=== PATIENT | female | born 2005 | race Caucasian/White ===

== ENCOUNTER 2024-11-27 20:40 | Emergency (ER) | payer MEDICAID, SELFPAY ==
[2024-11-27 20:42] VITALS: BP 109/68; PULSE 77; RESP 18; TEMP 36.3; O2SAT 98
[2024-11-27 21:08] LABS: Mucous, Urine 0 SEEN /hpf (<or=2+)
[2024-11-27 21:49] LABS: Hematocrit 35.2 % (37-47); Hemoglobin 11.3 g/dL (12.0-15.0); Immature Granulocytes Count 0.020 X10^3/uL (0.0-0.0); Mean Corp Hgb Conc 32.1 g/dL (32-36); Mean Corpuscular Volume 86.7 fL (81-99); Mean Platelet Vol. 10.0 fl (6.2-12.0); NRBC Flagged by Analyzer 0 % (0-5); Platelet Count 230 K/mm3 (150-450); RBC Distribution Width CV 14.1 % (11.6-14.6); RBC Distribution Width SD 45.1 fl (35.1-43.9); Red Blood Count 4.06 M/mm3 (4.2-5.4); White Blood Count 8.9 K/mm3 (4.4-11.0)
[2024-11-27 21:59] LABS: Color, Urine Yellow (Yellow); Glucose, Dipstick Normal (Normal); Ketone-Dipstick Negative (Negative); Leukocyte Esterase-Dipstick Negative /ul (Negative); Nitrite-Dipstick Positive (Negative); Occult Blood-Urine Negative /ul (Negative); Protein-Dipstick 30 mg/dl (Negative); Specific Gravity, Urine 1.015 (1.002-1.030); Urine Bilirubin Dipstick Negative (Negative)
[2024-11-27 22:04] LABS: Internal QC Validated? YES +Cl - CLEAR BKGD; Pregnancy, Serum, hCG Quali. NEGATIVE Negative; Record Kit Lot#, Serum Preg. 964736
[2024-11-27 22:08] LABS: AST(SGOT) 19 U/L (<=31); Alanine Aminotransfer ALT/SGPT 12 U/L (<=34); Albumin, Serum 4.7 g/dL (3.5-5.0); Alkaline Phosphatase 60 U/L (35-104); Anion Gap 13 (5-15); BUN 16 mg/dL (4-19); BUN/Creat Ratio 12.8 RATIO (10-20); Calcium,Total 9.4 mg/dL (7.6-11.0); Carbon Dioxide 23.9 mmol/L (21.0-32.0); Chloride 103 mmol/L (98-108); Estimated Creatinine Clearance 54.19 ml/min (50-250); Globulin 2.2 g/dL (2.2-4.2); Glucose 110 mg/dL (70-99); Lipase 49 U/L (13-75); Potassium 3.5 mmol/L (3.3-5.1)
[2024-11-27 22:18] LABS: Red Blood Cells-Urine 0-5 SEEN /hpf (0-5); Squamous Epithelial Cells - UA 5-10 SEEN /hpf (5-10)
--- OUTSIDE RECORDS SUMMARY | 2024-11-27 22:18 | XMS RPT_ITS | CCD ---
Author Organization [facility] Care Team Providers Care Medical Management Specialist Name Role Phone SAMMY KENNEL HAND-RIGGING UP WORKER, VIKTORIA S Primary Care Physicia n KEEGAN JEWELL MD Attending Unavailable SAMMY KENNEL HAND-RIGGING UP WORKER, VIKTORIA S Primary Care Unava ilable BEITLERVIKTORIA Attending Unavailable SAMMY KENNEL HAND-RIGGING UP WORKER, VIKTORIA S Primary Care Unava ilable BEITLER VIKTORIA Attending Unavailable SAMMY KENNEL HAND-RIGGING UP WORKER, VIKTORIA S Primary Care Unava ilable EDDIE SANCHEZ MD Attending Unavailable SAMMY KENNEL HAND-RIGGING UP WORKER, VIKTORIA S Primary Care Unava ilable SAMMY KENNEL HAND-RIGGING UP WORKER, VIKTORIA S Attending Unava ilable SAMMY KENNEL HAND-RIGGING UP WORKER, VIKTORIA S Primary Care Unava ilable BEITLER VIKTORIA Attending Unavailable SAMMY KENNEL HAND-RIGGING UP WORKER, VIKTORIA S Primary Care Unava ilable BEITLER, VIKTORIA Attending Unavailable SAMMY KENNEL HAND-RIGGING UP WORKER, VIKTORIA S Primary Care Unava ilable BEITLER VIKTORIA Attending Unavailable SAMMY KENNEL HAND-RIGGING UP WORKER, VIKTORIA S Primary Care Unava ilable BEITLERGEOVANNYVIKTORIA Attending Unavailable SAMMY KENNEL HAND-RIGGING UP WORKER, VIKTORIA S Primary Care Unava ilable BEITLER VIKTORIA Attending Unavailable SAMMY KENNEL HAND-RIGGING UP WORKER, VIKTORIA S Primary Care Unava ilable KEEGAN JEWELL MD Attending Unavailable SAMMY KENNEL HAND-RIGGING UP WORKER, VIKTORIA S Primary Care Unava ilable BEITLERVIKTORIA Attending Unavailable SAMMY KENNEL HAND-RIGGING UP WORKER, VIKTORIA S Primary Care Unava ilable BEITLERVIKTORIA Attending Unavailable SAMMY KENNEL HAND-RIGGING UP WORKER, VIKTORIA S Primary Care Unava ilable KANDY SCHMITZ DO Attending Unavailable [facility], VIKTORIA S Primary Care Unava ilable TRI ROBLERO, RACHAEL Attending Unavailable [facility], VIKTORIA S Primary Care Unava alvarado BARTLETT MD, RACHAEL Admitting Unavailable VIKTORIA MARINELLI Attending Unavailable [facility], VIKTORIA S Primary Care Unava ilpaul BARTLETT MD, RACHAEL Admitting Unavailable TRI ROBLERO, RACHAEL Attending Unavailable [facility], [facility] Primary Care Unava ilable Jordin Miller Attending Provider [phone] Jordin Miller Attending Unavailable Jordin Miller Attending Unavailable TERE SNOW MD Attending Unavailable [facility], [facility] Unava ilable Medications Current Medications Medication Drug Class(es) Dates Sig (Normalized) Sig (Original) acetaminophen 500 mg oral tablet (2 sources) Start: 08-23-2023 End: 09-20-2023 Tylenol Extra Strength 500 mg oral tablet Dose : 500 mg = 1 tab(s), Oral, q4h, X 14 day(s), # 30 tab(s), 1 Refill(s), 09/20/23 4:21:00 PM EDT, [facility]: [id number], 157, cm, 08/23/23 7:51:00 EDT, Height, kg, 08/23/23 7:51:00 EDT, Dosing Weight Start Date: 08/23/23 Stop Date: 09/20/23 Status: Ordered Start: 03-13-2020 Tylenol Oral, 0 Refill(s) Start Date: 03/13/20 Status: Ordered albuterol MDI (90 mcg/inh) CFC free inhalation aerosol (20 sources) Start: 07-07-2021 take 2 puff(s) by inhalation four times daily as needed for wheezing albuterol MDI (90 mcg/inh) CFC free inhalation aerosol 2 puff(s), Inhalation, QID, PRN as needed for wheezing, # 1 EA, 0 Refill(s), [facility]: [facility] Asthma, 157, cm, 07/07/21 16:08:00 EDT, Height, kg, 07/07/21 16:08:00 EDT, Dosing Weight Start Date: 07/07/21 Status: Ordered Quantity: 1.0 Unit: EA Repeat number: 1 Indications: Unspecified asthma, uncomplicated; Start: 07-07-2021 take 2 puff(s) by in halation four times daily as needed for wheezing albuterol MDI (90 mcg/inh) CFC free inhalation aerosol 2 puff(s), Inhalation, QID, PRN as needed for wheezing, # 1 EA, 0 Refill(s), Pharmacy: [facility] Asthma, 157, cm, 07/07/21 16:08:00 EDT, Height, kg, 07/07/21 16:08:00 EDT, Dosing Weight Start Date: 07/07/21 Status: Ordered Start: 01-06-2020 take 2 puff(s) by in halation four times daily as needed for wheezing albuterol MDI (90 mcg/inh) CFC free inhalation aerosol 2 puff(s), Inhalation, QID, PRN as needed for wheezing, # 1 EA, 3 Refill(s), Pharmacy: [facility] 156, cm, 01/06/20 14:38:00 EST, Height, kg, 01/06/20 14:38:00 EST, Dosing Weight Start Date: 01/06/20 Status: Ordered Alive Gummies oral tablet, chewable (14 sources) Start: 01-04-2023 take 1 tablet by mouth once daily Alive Gummies oral tablet, chewable Dose = 2 tab(s), Chewed, qDay, # 90 EA, 7 Refill(s), [facility]: [facility] #[id number], 157.2, cm, 01/03/23 14:45:00 EDT, Height, kg, 01/03/23 14:45:00 EDT, Dosing Weight Start Date: 01/04/23 Status: Ordered aspirin 81 mg delayed release oral tablet (11 sources) Platelet Aggregation Inhibitor, Nonsteroidal Anti-inflammatory Drug Start: 01-31-2023 aspirin 81 mg oral delayed release tablet Dose : 81 mg = 1 tab(s), Oral, Daily, # 30 tab(s), 7 Refill(s), Pharmacy: [facility] #[id number], 157.2, cm, 01/31/23 9:30:00 EST, Height, kg, 01/03/23 14:45:00 EDT, Dosing Weight Start Date: 01/31/23 Status: Ordered benzocaine 200 mg/ml topical spray (1 source) Standardized Chemical Allergen Start: 08-23-2023 End: 09-06-2023 apply 1 dose topically four times daily Americaine 20% topical spray Dose = 1 octavio, Topical, QID, X 14 day(s), # 1 EA, 0 Refill(s), Pharmacy: [facility] #[id number], 157, cm, 08/23/23 7:51:00 EDT, Height, kg, 08/23/23 7:51:00 EDT, Dosing Weight Start Date: 08/23/23 Stop Date: 09/06/23 Status: Ordered cephalexin 500 mg oral tablet (3 sources) Cephalosporin Antibacterial Start: 07-21-2024 End: 07-31-2024 cephalexin 500 mg oral tablet Dose : 500 mg = 1 tab(s), Oral, QID, X 10 day(s), # 40 tab(s), 0 Refill(s), 07/31/24 3:30:00 PM EDT, 48 Start Date: 07/21/24 Stop Date: 07/31/24 Status: Ordered Quantity: 40.0 Unit: tab(s) Repeat number: 1 Start: 03-12-2023 End: 03-19-2023 cephalexin 500 mg oral capsu le Dose : 500 mg = 1 cap(s), Oral, q12h, X 7 day(s), # 14 cap(s), 0 Refill(s), 03/19/23 2:42:00 PM EST, 45 Start Date: 03/12/23 Stop Date: 03/19/23 Status: Ordered Start: 02-16-2023 End: 02-23-2023 cephalexin 500 mg oral capsu le Dose : 500 mg = 1 cap(s), Oral, q12h, X 7 day(s), # 14 cap(s), 0 Refill(s), 02/23/23 10:17:00 PM EST, 45.4 Start Date: 02/16/23 Stop Date: 02/23/23 Status: Ordered cetirizine hydrochloride 10 mg oral tablet (1 source) Histamine-1 Receptor Antagonist Start: 07-07-2021 cetirizine 10 mg oral tablet Dose : 10 mg = 1 tab(s), Oral, qDay, # 30 tab(s), 0 Refill(s), [facility]: [facility] Allergic rhinitis, seasonal, 157, cm, 07/07/21 16:08:00 EDT, Height Start Date: 07/07/21 Status: Ordered diphenhydrAMINE hydrochloride 25 mg oral tablet (6 sources) Histamine-1 Receptor Antagonist Start: 01-04-2023 Unisom 25mg oral tablet Dose : 25 mg = 1 tab(s), Oral, qHS, PRN as needed for insomnia, # 30 tab(s), 5 Refill(s), Pharmacy: [facility] #[id number], 157.2, cm, 01/03/23 14:45:00 EDT, Height, kg, 01/03/23 14:45:00 EDT, Dosing Weight Start Date: 01/04/23 Status: Ordered docusate sodium 100 mg oral capsule (7 sources) Start: 08-23-2023 Colace 100 mg oral capsule Dose : 100 mg = 1 cap(s), Oral, BID, PRN Constipation, 0 Refill(s) Start Date: 08/23/23 Status: Ordered Start: 05-15-2023 Colace 100 mg oral capsule Dose : 100 mg = 1 cap(s), Oral, BID, PRN as needed for constipation, # 100 cap(s), 4 Refill(s), Pharmacy: [facility] #[id number], 157.5, cm, 04/10/23 10:06:00 EST, Height, kg, 03/12/23 12:55:00 EST, Dosing Weight Start Date: 05/15/23 Status: Ordered ergocalciferol 1.25 mg oral capsule (1 source) Provitamin D2 Compound Start: 04-17-2022 End: 07-16-2022 ergocalciferol 50,000 intl units (1.25 mg) oral capsule Dose : 50,000 International_Unit = 1 cap(s), Oral, qWeek, # 13 cap(s), 0 Refill(s), Pharmacy: [facility] #[id number], 159, cm, 04/17/22 13:13:00 EST, Height Start Date: 04/17/22 Stop Date: 07/16/22 Status: Ordered ferrous sulfate 324 mg delayed release oral tablet (7 sources) Start: 05-17-2023 ferrous sulfate 324 mg (65 mg elemental iron) oral delayed release tablet Dose : 324 mg = 1 tab(s), Oral, qDay, please dispense what is covered by her insurance., # 30 tab(s), 4 Refill(s), Pharmacy: [facility] #[id number], Anemia in , 157.5, cm, 05/15/23 11:26:00 EDT, Height, kg, 03/12/23 12:55:00 EST, Dosing Weight Start Date: 05/17/23 Status: Ordered fluconazole 150 mg oral tablet (1 source) Azole Antifungal Start: 10-03-2021 End: 10-05-2021 Diflucan 150 mg oral tablet See Instructions, 1 tab(s) Oral qDay 1 dose(s), repeat in 48 hrs if continued symptoms, # 2 tab(s), 0 Refill(s), 10/05/21 1:47:00 EDT, Vaginal discharge, 47.2 Start Date: 10/03/21 Stop Date: 10/05/21 Status: Ordered FLUoxetine 10 mg oral capsule (1 source) Serotonin Reuptake Inhibitor Start: 12-25-2023 End: 12-19-2024 FLUoxetine 10 mg oral capsule Dose : 10 mg = 1 cap(s), Oral, qDay, # 30 cap(s), 11 Refill(s), Pharmacy: [facility]/pharmacy #[id number], 157, cm, 12/25/23 13:53:00 EDT, Height, kg, 12/25/23 13:53:00 EDT, Dosing Weight Start Date: 12/25/23 Stop Date: 12/19/24 Status: Ordered Quantity: 30.0 Unit: cap(s) Repeat number: 12 ibuprofen 800 mg oral tablet (1 source) Nonsteroidal Anti-inflammatory Drug Start: 08-23-2023 End: 09-06-2023 ibuprofen 800 mg oral tablet Dose : 800 mg = 1 tab(s), Oral, q8h, X 14 day(s), # 42 tab(s), 0 Refill(s), 09/06/23 4:21:00 PM EDT, [facility]: [facility] #[id number], 157, cm, 08/23/23 7:51:00 EDT, Height, kg, 08/23/23 7:51:00 EDT, Dosing Weight Start Date: 08/23/23 Stop Date: 09/06/23 Status: Ordered meloxicam 7.5 mg oral tablet (1 source) Nonsteroidal Anti-inflammatory Drug Start: 07-15-2021 meloxicam 7.5 mg oral tablet Dose : 7.5 mg = 1 tab(s), Oral, qDay, # 30 tab(s), 0 Refill(s), [facility]: [facility] [facility], 157, cm, 07/07/21 16:08:00 EDT, Height Start Date: 07/15/21 Status: Ordered naproxen 500 mg delayed release oral tablet (1 source) Nonsteroidal Anti-inflammatory Drug Start: 04-17-2022 End: 10-14-2022 naproxen 500 mg oral delayed release tablet Dose : 500 mg = 1 tab(s), Oral, BID, X 30 day(s), # 60 tab(s), 5 Refill(s), 10/14/22 13:40:00 EDT, [facility]: [facility] #[id number], 159, cm, 04/17/22 13:13:00 EST, Height Start Date: 04/17/22 Stop Date: 10/14/22 Status: Ordered ondansetron 4 mg oral tablet (1 source) Serotonin-3 Receptor Antagonist Start: 04-17-2022 End: 07-16-2022 Zofran 4 mg oral tablet Dose : 4 mg = 1 tab(s), Oral, q6h, PRN Nausea/Vomiting, X 30 day(s), # 30 tab(s), 2 Refill(s), 07/16/22 13:41:00 EDT, [facility]: [facility] #[id number], 159, cm, 04/17/22 13:13:00 EST, Height Start Date: 04/17/22 Stop Date: 07/16/22 Status: Ordered AD oral tablet (6 sources) Start: 12-28-2022 take 1 tablet by mouth once daily AD oral tablet Dose = 1 tab(s), Oral, Daily, # 30 tab(s), 1 Refill(s), Pharmacy: [facility] #[id number], 159, cm, 12/28/22 13:29:00 EDT, Height, kg, 12/28/22 13:29:00 EDT, Dosing Weight Start Date: 12/28/22 Status: Ordered pyridoxine hydrochloride 25 mg oral tablet (6 sources) Start: 01-04-2023 pyridoxine 25 mg oral tablet Dose : 25 mg = 1 tab(s), Oral, q6hr, # 100 tab(s), 5 Refill(s), [facility]acy: [facility] #[id number], 157.2, cm, 01/03/23 14:45:00 EDT, Height, kg, 01/03/23 14:45:00 EDT, Dosing Weight Start Date: 01/04/23 Status: Ordered Sprintec 0.25 mg-35 mcg oral tablet (1 source) Start: 01-11-2021 take 1 tablet by mouth once daily Sprintec 0.25 mg-35 mcg oral tablet Dose = 1 tab(s), Oral, qDay, # 84 tab(s), 3 Refill(s), [facility]: [facility] 158.5, cm, 01/06/21 13:59:00 EDT, Height, kg, 01/06/21 13:59:00 EDT, Dosing Weight Start Date: 01/11/21 Status: Ordered {3 (168 HR ethinyl estradiol 0.13157 MG/HR / levonorgestrel 0.005 MG/HR Transdermal System [Twirla]) } Pack [Twirla 3 Count Weekly Patch] (1 source) Start: 07-19-2022 apply 1 dose topically every week Twirla 120 mcg-30 mcg transdermal film Dose = 1 film, Topical, qWeek, # 4 film, 3 Refill(s), Pharmacy: [facility] #[id number], 155, cm, 07/19/22 9:05:00 EDT, Height Start Date: 07/19/22 Status: Ordered Completed/Discontinued Medications Medication Drug Class(es) Dates Sig (Normalized) Sig (Original) omeprazole 20 mg delayed release oral capsule (3 sources) Proton Pump Inhibitor Start: 12-01-2021 End: 12-15-2021 omeprazole 20 mg oral delayed release capsule Dose : 20 mg = 1 cap(s), Oral, qDay, # 14 cap(s), 0 Refill(s), [facility]acy: [facility] #[id number], 158, cm, 12/01/21 13:12:00 EDT, Height Start Date: 12/01/21 Stop Date: 12/15/21 Status: Ordered Problems Active Problems Problem Classification Problem Date Documented Date Episodic/Chronic Abdominal pain (2 sources) Pelvic and perineal pain; Translations: [Pelvic and perineal pain] Onset: 01-31-2021 Episodic Administrative/socia l admission (5 sources) Patient encounter status; Translations: [Encounter for pre-employment examination] Onset: 10-10-2024 10-10-2024 Episodic Anxiety disorders (20 sources) Mixed anxiety and depressive disorder; Translations: [Anxiety] Onset: 08-23-2023 01-06-2020 Chronic Asthma (2 sources) Asthma; Translations: [Unspecified asthma, uncomplicated] Onset: 08-23-2023 Chronic Deficiency and other anemia (1 source) Anemia 10-24-2023 Episodic Esophageal disorders (18 sources) Gastroesophageal reflux disease 12-01-2021 Chronic Immunizations and screening for infectious disease (1 source) Screening status; Translations: [Encounter for screening for infections with a predominantly sexual mode of transmission] Onset: 08-23-2023 Episodic Malaise and fatigue (20 sources) Asthenia; Translations: [Fatigue] 04-17-2022 Episodic Menstrual disorders (18 sources) Intermenstrual bleeding - irregular; Translations: [Secondary amenorrhea] Onset: 01-03-2023 04-17-2022 Chronic Nausea and vomiting (18 sources) Nausea 12-01-2021 Episodic Nutritional deficiencies (17 sources) Vitamin D deficiency; Translations: [Vitamin D deficiency, unspecified] Onset: 04-17-2022 Chronic OB-related trauma to perineum and vulva (1 source) Second degree perineal tear during delivery with problem; Translations: [Second degree perineal laceration during delivery] Onset: 08-23-2023 Episodic Other connective tissue disease (15 sources) Pain in thumb 08-24-2022 Episodic Other female genital disorders (1 source) Noninflammatory disorder of the vagina; Translations: [Other specified noninflammatory disorders of vagina] Onset: 10-03-2021 Episodic Other injuries and conditions due to external causes (1 source) Injury of head; Translations: [Unspecified injury of head, initial encounter] Onset: 01-12-2022 Episodic Other injuries and conditions due to external causes (1 source) Injury of upper extremity; Translations: [Unspecified injury of left wrist, hand and finger(s), initial encounter] Onset: 10-13-2022 Episodic Other and delivery including normal (15 sources) ; Translations: [Delivery normal] Onset: 10-22-2022 01-17-2023 Episodic Otitis media and related conditions (1 source) Dysfunction of eustachian tube 12-25-2023 Episodic Residual codes; unclassified (1 source) Gestation period, 39 weeks; Translations: [39 weeks gestation of ] Onset: 08-23-2023 Episodic Spondylosis; intervertebral disc disorders; other back problems (20 sources) Pain in the coccyx 01-27-2020 Episodic Unclassified (20 sources) Patient encounter status 01-06-2021 Past or Other Problems Problem Classification Problem Date Documented Date Episodic/Chronic Genitourinary symptoms and ill-defined conditions (2 sources) Genitourinary tract problem; Translations: [Unspecified symptoms and signs involving the genitourinary system] Onset: 07-21-2024 Episodic Urinary tract infections (2 sources) Urinary tract infectious disease; Translations: [Urinary tract infection, site not specified] Onset: 03-12-2023 Episodic Results Test Name Value Interpretation Reference Range Facility Office Visit Reporton 2024 Office Visit Report [facility] [address] [place] [address] OFFICE VISIT Date of Service: 10/10/24 MR#: [id number] Acct: [id number] Patient: MARCO BOSTON Rep #: [id number] : 2005 Provider: KENNETH Don Age/Sex: 18/F [place] [facility] [place] [place]: Signed Intake Intake Visit 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 Office Procedures [facility] Billing Sheet Testing Breath Alcohol Test Pre-Employment: Yes Pre-Employment Drug Screen: Yes Pre-Employment PE: Yes 10/16/24 0749 Date Jordin Saleem Signature: Date (if applicable) CC: Normal [facility] Visit Reporton 0 10-10-2024 Urgent Care Visit Report [facility] [address], [address] [place] [address] OFFICE VISIT Date of Service: 10/10/24 MR#: [id number] Acct: [id number] Name: MARCO BOSTON Rep #: [id number] : 2005 Provider: KENNETH Don Age/Sex: 18/F [place] [facility] [place] Status: Signed Intake Intake Visit 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 Please see corresponding scanned documents with today's date. Office Procedures Physical Exam Coding PE Coding Pre-employment PE: Yes Coding Level of Care Code Attention Cory Diagnoses Encounter for pre-employment health screening examination Z02.1 Assessment and Plan Assessment and Plan (1) Encounter for pre-employment health screening examination: Status: Acute 10/10/24 1520 Date Jordin Saleem Signature: Date (if applicable) CC: Normal [facility] LABORATORYOrdered By: Nicolas Norwood on 07-21-2024 Appearance (U) Cloudy *ABN* (07/21/24 2:20 PM) Invalid Interpretation Code Clear AO Auto Urine SS Bacteria LM.HPF (Urine sed) [#/Area] 4 /[HPF] Invalid Interpretation Code Negative AO Auto Urine SS Bilirubin Ql (U) Negative (07/21/24 2:20 PM) Normal Negative AO Auto Urine SS Color (U) Yellow (07/21/24 2:20 PM) Normal AO Auto Urine SS Glucose Test strip (U) [Mass/Vol] Negative Normal Negative AO Auto Urine SS Hemoglobin Auto test strip (U) [Mass/Vol] Small *ABN* (07/21/24 2:20 PM) Invalid Interpretation Code Negative AO Auto Urine SS Ketones Ql (U) Negative Normal Negative AO Auto Urine SS UA Coarse Granular Casts 0-2 /LPF Invalid Interpretation Code AO Auto Urine SS UA Leuk Est Trace (07/21/24 2:20 PM) Normal Negative AO Auto Urine SS UA Nitrite Positive *ABN* (07/21/24 2:20 PM) Invalid Interpretation Code Negative AO Auto Urine SS UA pH 6.0 (07/21/24 2:20 PM) Normal 5.0 - 8.0 AO Auto Urine SS UA Protein Negative Normal Negative AO Auto Urine SS UA RBC 10-20 /HPF Invalid Interpretation Code 0-2 AO Auto Urine SS UA Spec Grav >=1.030 *ABN* (07/21/24 2:20 PM) Invalid Interpretation Code 1.015-1.025 AO Auto Urine SS UA Specimen Type Clean Catch (07/21/24 2:20 PM) Normal AO Auto Urine SS UA Squam Epithelial 10-20 /HPF Normal 0-20 AO Au to Urine SS UA Urobilinogen 0.2 E.U./dL Normal 0.2-1.0 AO Auto Urine SS WBC LM.HPF (Urine sed) [#/Area] 10-20 /HPF Invalid Interpretation Code 0-5 AO Auto Urine SS No Panel Informationon 07-21 Culture Urine Specimen received in lab. [facility] Work Phone: UAon 07-21-2024 Color (U) Yellow Normal [facility] Comment on above: Performed By: #### U AMI, UA #### [address] [place], [place] [address] Glucose (U) [Mass/Vol] Negative Normal Negative [facility] Comment on above: Performed By: #### U AMIC, UA #### [place] [address] Ketones Ql (U) Negative Normal Negative [facility] Comment on above: Performed By: #### U AMIC, UA #### [place] [address] UA Appear Cloudy Abnormal Clear [facility] Comment on above: Performed By: #### U AMIC, UA #### [address] [address] UA Blood Small Abnormal Negative [facility] Comment on above: Performed By: #### U AMIC, UA #### [place] [address] UA Leuk Est Trace Normal Negative [facility] Comment on above: Performed By: #### U AMIC, UA #### [place] [address] UA Nitrite Positive Abnormal Negative [facility] Comment on above: Performed By: #### U AMIC, UA #### [place] [address] UA pH 6.0 Normal 5.0 - 8.0 [facility] Comment on above: Performed By: #### U AMIC, UA #### [place] [address] UA Protein Negative Normal Negative [facility] Comment on above: Performed By: #### U AMIC, UA #### [place] [address] UA Spec Grav >=1.030 Abnormal 1.015-1.025 [facility] Comment on above: Performed By: #### U AMIC, UA #### [place] [address] UA Specimen Type Clean Catch Normal [facility] Comment on above: Performed By: #### U AMIC, UA #### [place] [address] UA Urobilinogen 0.2 E.U./dL Normal 0.2-1.0 [facility] Comment on above: Performed By: #### U AMIC, UA #### [place] [address] Urobilinogen (U) [Mass/Vol] Negative Normal Negative [facility] Comment on above: Performed By: #### U AMIC, UA #### [place] [address] UAMICon 07-21-2024 UA Bacteria 4+ /hpf Abnormal Negative [facility] Comment on above: Performed By: #### U AMIC, UA #### [place] [address] UA Coarse Granular Casts 0-2 Abnormal [facility] Comment on above: Performed By: #### U AMIC, UA #### [place] [address] UA RBC 10-20 Abnormal 0-2 [facility] Comment on above: Performed By: #### U AMIC, UA #### [place] [address] UA Squam Epithelial 10-20 Normal 0-20 [facility] Comment on above: Performed By: #### U AMIC, UA #### [place] [address] UA WBC 10-20 Abnormal 0-5 [facility] Comment on above: Performed By: #### U AMIC, UA #### [place] [address] .Auto Diffon 10-24-2023 Basophil, Absolute 0.1 10 3/mcL Normal 0.0-0.2 [facility] ([place]) Comment on above: Performed By: #### U A, PREGU, UAMICAO #### [address] [address] Basophils/100 WBC (Bld) 1.0 % Normal 0.0-2.5 [facility] ([place]) Comment on above: Performed By: #### U A, PREGU, UAMICAO #### [address] [address] Eosinophil, Absolute 0.1 10 3/mcL Normal 0.0-0.4 [facility] ([place]) Comment on above: Performed By: #### U A, PREGU, UAMICAO #### [address] [address] Eosinophils/100 WBC (Bld) 1.1 % Normal 0.0-7.0 [facility] ([place]) Comment on above: Performed By: #### U A, PREGU, UAMICAO #### [address] [address] Lymphocyte, Absolute 2.1 10 3/mcL Normal 0.8-3.9 [facility] ([place]) Comment on above: Performed By: #### U A, PREGU, UAMICAO #### [address] [address] Lymphocytes/100 WBC (Bld) 37.3 % Normal 10.0-50.0 [facility] ([place]) Comment on above: Performed By: #### U A, PREGU, UAMICAO #### [address] [address] Monocyte, Absolute 0.4 10 3/mcL Normal 0.2-1.0 [facility] ([place]) Comment on above: Performed By: #### U A, PREGU, UAMICAO #### [address] [address] Monocytes/100 WBC (Bld) 7.4 % Normal 1.7-13.0 [facility] ([place]) Comment on above: Performed By: #### U A, PREGU, UAMICAO #### [address] [address] Neutrophils/100 WBC (Bld) 53.2 % Normal 37.0-80.0 [facility] ([place]) Comment on above: Performed By: #### U A, PREGU, UAMICAO #### [address] [address] .NEUABSon 10-24-2023 Neutrophil, Absolute 3.1 10 3/mcL Normal 2.9-6.2 [facility] ([place]) Comment on above: Performed By: #### ART Jacobs UAMICAO #### [place] [address] CBCon 10-24-2023 Erythrocyte distribution width (RBC) [Ratio] 15.9 % High 11.5-14.5 [facility] ([place]) Comment on above: Performed By: #### ART Jacobs UAMICAO #### [place] [address] Hematocrit (Bld) [Volume fraction] 39.1 % Normal 37.0-47.0 [facility] ([place]) Comment on above: Performed By: #### ART Jacobs UAMICKARY #### [place] [address] Hgb 12.8 G/dL Normal 12.0-16.0 [facility] ([place]) Comment on above: Performed By: #### ART Jacobs UAMICKARY #### [place] [address] MCH (RBC) [Entitic mass] 28.6 pg Normal 27.0-31.2 [facility] ([place]) Comment on above: Performed By: #### ART Jacobs UAMICAO #### [place] [address] MCHC 32.7 G/dL Low 33.0-37.0 [facility] ([place]) Comment on above: Performed By: #### ART Jacobs UAMICAO #### [place] [address] MCV (RBC) [Entitic vol] 87.5 fL Normal 80.0-94.0 [facility] ([place]) Comment on above: Performed By: #### RADHA JacobsU UAMICAO #### [address] [address] Platelet 276 10 3/mcL Normal 130-400 [facility] ([place] Comment on above: Performed By: #### U Melinda PREGU, UAMICAO #### [place] [address] [address] Platelet mean volume (Bld) [Entitic vol] 7.7 fL Normal 7.4-10.4 [facility] ([place] Comment on above: Performed By: #### U A PREGU, UAMICAO #### [place] [address] [address] RBC 4.47 10 6/mcL Normal 4.20-5.40 [facility] ([place] Comment on above: Performed By: #### U A PREGU, UAMICAO #### [address] [address] WBC 5.7 10 3/mcL Normal 4.6-10.8 [facility] ([place] Comment on above: Performed By: #### U A PREGU, UAMICAO #### [address] [address] FEon 10-24-2023 Iron [Mass/Vol] 36 ug/dL Low 50-170 [facility] ([place] Comment on above: Performed By: #### U A PREGU, UAMICAO #### [address] [address] FMHon 08-24-2023 Mat. Hemorrhage Negative Normal [facility] ([place] Comment on above: Performed By: #### U A, PREGU, UAMICAO #### [address] [address] HHon 08-24-2023 Hematocrit (Bld) [Volume fraction] 32.1 % Low 37.0-47.0 [facility] ([place] Comment on above: Performed By: #### U A, PREGU, UAMICAO #### [place] [id number] Hgb 10.4 G/dL Low 12.0-16.0 [facility] ([place] Comment on above: Performed By: #### U A, PREGU, UAMICAO #### [place] [address] HIVRPon 08-24-2023 HIV p24 Antigen Non-Reactive Normal Non-Reactive [facility] ([place] Comment on above: Order Comment: add o n Result Comment: Dete ction of p24 may be inhibited by biotin in the sample, causing false negative results in acute infection. Therefore do not test samples from patients who are taking biotin. Performed By: #### U A, PREGU, UAMICAO #### [place] [address] HIV P24 Int Non-Reactive Invalid Interpretation Code [facility] ([place] Comment on above: Order Comment: add o n Performed By: #### U A, PREGU, UAMICAO #### [place] [address] Rapid HIV 1/2 Antibody Non-Reactive Normal Non-Reactive [facility] ([place] Comment on above: Order Comment: add o n Performed By: #### U A, PREGU, [place]O #### [place] [address] RHIV 1/2 Ab Int Non-Reactive Invalid Interpretation Code [facility] ([place] Comment on above: Order Comment: add o n Performed By: #### U A, PREGU, [place]O #### [place] [address] LABORATORYOrdered By: Nicolas Norwood on 08-24-2023 cell screen Flaquita test Ql (Bld) Negative (08/24/23 5:13 AM) Normal AO BB SS HIV 1 p24 Ab Ql (S) Non-Reactive 2 (08/24/23 5:13 AM) Normal Non-Reactive AO Rapid Testing SS Comment on above: Interpretive Data: D etection of p24 may be inhibited by biotin in the sample, causing false negative results in acute infection. Therefore do not test samples from patients who are taking biotin. HIV 1 p24 Ab Ql (S) Non-Reactive Invalid Interpretation Code AO Rapid Testing SS HIV 1+2 Ab IA Ql Non-Reactive Invalid Interpretation Code AO Rapid Testing SS HIV 1+2 Ab IA.rapid Ql (Unsp spec) Non-Reactive (08/24/23 5:13 AM) Normal Non-Reactive AO Rapid Testing SS LABORATORYOrdered By: SYSTEM SYSTEM on 08-24-2023 Hematocrit (Bld) [Volume fraction] 32.1 % Low 37.0 - 47.0 % AO Workflow SS Hemoglobin (Bld) [Mass/Vol] 10.4 G/dL Low 12.0 - 16.0 G/dL AO Workflow SS RPRon 08-24-2023 Reagin Ab RPR Ql (S) Non-Reactive Normal Non-Reactive [facility] ([place]) Comment on above: Result Comment: The RPR test is a non-treponemal assay useful as an aid in the diagnosis of primary and secondary syphilis. It converts to positive generally within 2 weeks after the appearance of a lesion. This test is also useful for monitoring response to antibiotic therapy. A positive RPR screening test will be followed by the FTA ABS test. False positive RPR tests may occur in 1) patients with underlying autoimmune disorders, 2) elderly patients, 3) , and 4) other conditions with abnormal serum globulins. Performed By: #### ART Jacobs [place] #### [address] [address] .Auto Diffon 08-23-2023 Basophil, Absolute 0.1 10 3/mcL Normal 0.0-0.2 [facility] ([place]) Comment on above: Performed By: #### ART Jacosb [place] #### [address] [address] Basophils/100 WBC (Bld) 0.5 % Normal 0.0-2.5 [facility] ([place] Comment on above: Performed By: #### ART Jacobs [place] #### [address] [address] Eosinophil, Absolute 0.0 10 3/mcL Normal 0.0-0.4 [facility] ([place]) Comment on above: Performed By: #### ART Jacobs [place]O #### [address] [address] Eosinophils/100 WBC (Bld) 0.0 % Normal 0.0-7.0 [facility] ([place] Comment on above: Performed By: #### U A, PREGU, UAMICAO #### [address] [address] Lymphocyte, Absolute 1.3 10 3/mcL Normal 0.8-3.9 [facility] ([place] Comment on above: Performed By: #### U A, PREGU, UAMICAO #### [address] [address] Lymphocytes/100 WBC (Bld) 9.1 % Low 10.0-50.0 [facility] ([place] Comment on above: Performed By: #### U A, PREGU, UAMICAO #### [address] [address] Monocyte, Absolute 0.7 10 3/mcL Normal 0.2-1.0 [facility] ([place] Comment on above: Performed By: #### U A, PREGU, UAMICAO #### [address] [address] Monocytes/100 WBC (Bld) 4.8 % Normal 1.7-13.0 [facility] ([place] Comment on above: Performed By: #### U A, PREGU, UAMICAO #### [address] [address] Neutrophils/100 WBC (Bld) 85.6 % High 37.0-80.0 [facility] ([place] Comment on above: Performed By: #### U A, PREGU, UAM[place]O #### [address] [address] .NEUABSon 08-23-2023 Neutrophil, Absolute 12.6 10 3/mcL High 2.9-6.2 [facility] ([place]) Comment on above: Performed By: #### U A, PREGU, UAMICAO #### [address] [address] ABIDon 08-23-2023 Antibody ID Passive Anti-D Invalid Interpretation Code [facility] ([place] Comment on above: Order Comment: Order ed by Discern Performed By: #### U A, PREGU, UAM[place]O #### [address] [address] ABO/Rh (Gel)on 08-23-2023 ABO/Rh Interp Negative Invalid Interpretation Code [facility] ([place]) Comment on above: Performed By: #### U A, PREGU, UAMICAO #### [address] [address] ABS (Gel)on 08-23-2023 ABSC Interp (Gel) Positive Normal [facility]) Comment on above: Performed By: #### U A, PREGU, UAMICAO #### [address] [address] AUTOCon 08-23-2023 Auto Control Negative Normal [facility]) Comment on above: Order Comment: Order ed by Discern Performed By: #### U A, PREGU, UAMICAO #### [address] [address] CBCon 08-23-2023 Erythrocyte distribution width (RBC) [Ratio] 15.2 % High 11.5-14.5 [facility] ([place] Comment on above: Performed By: #### U A, PREGU, UAMICAO #### [address] [address] Hematocrit (Bld) [Volume fraction] 35.9 % Low 37.0-47.0 [facility] ([place] Comment on above: Performed By: #### U A, PREGU, UAMICAO #### [address] [address] Hgb 11.8 G/dL Low 12.0-16.0 [facility] ([place] Comment on above: Performed By: #### U A, PREGU, UAMICAO #### [address] [address] MCH (RBC) [Entitic mass] 28.0 pg Normal 27.0-31.2 [facility] ([place] Comment on above: Performed By: #### ART Jacobs [place] #### [address] [address] MCHC 32.8 G/dL Low 33.0-37.0 [facility] ([place] Comment on above: Performed By: #### ART Jacobs [place] #### [address] [address] MCV (RBC) [Entitic vol] 85.5 fL Normal 80.0-94.0 [facility] ([place] Comment on above: Performed By: #### ART Jacobs [place] #### [address] [address] Platelet 285 10 3/mcL Normal 130-400 [facility] ([place] Comment on above: Performed By: #### ART Jacobs [place] #### [address] [address] Platelet mean volume (Bld) [Entitic vol] 7.9 fL Normal 7.4-10.4 [facility] ([place]) Comment on above: Performed By: #### RADHA JacobsU [place] #### [address] [address] RBC 4.19 10 6/mcL Low 4.20-5.40 [facility] ([place] Comment on above: Performed By: #### U Melinda PREGU [place] #### [address] [address] WBC 14.7 10 3/mcL High 4.6-10.8 [facility] ([place]) Comment on above: Performed By: #### U Melinda PREGU [place] #### [address] [address] LABORATORYOrdered By: Lori Lang on 08-23-2023 ABO and Rh group Nom (Bld) A negative (08/23/23 4:50 PM) [facility] Work Phone: Group B Strep Date Performed [id number] [facility] Work Phone: Group B Strep, External Negative (08/23/23 4:50 PM) [facility] Work Phone: Hepatitis B Date Performed [id number] [facility] Work Phone: Hepatitis B, External Negative (08/23/23 4:50 PM) [facility] Work Phone: HIV Antibodies, External Unknown (08/23/23 4:50 PM) [facility] Work Phone: RPR Date Performed [id number] [facility] Work Phone: RPR, External Nonreactive (08/23/23 4:50 PM) [facility] Work Phone: Rubella Date Performed [id number] [facility] Work Phone: Rubella, External Immune (08/23/23 4:50 PM) [facility] Work Phone: LABORATORYOrdered By: Nicolas Norwood on 08-23-2023 ABO and Rh group Nom (Bld) Blood group A Rh(D) negative Invalid Interpretation Code AO BB Auto SS Blood group antibody screen Ql Positive ABSC (08/23/23 10:24 AM) Normal AO BB Auto SS LABORATORYOrdered By: SYSTEM SYSTEM on 08-23-2023 Basophil, Absolute 0.1 103/mcL Normal 0.0 - 0.2 10^3/mcL AO Workflow SS Basophils/100 WBC (Bld) 0.5 % Normal 0.0 - 2.5 % AO Workflow SS Eosinophil, Absolute 0.0 103/mcL Normal 0.0 - 0 .4 10^3/mcL AO Workflow SS Eosinophils/100 WBC (Bld) 0.0 % Normal 0.0 - 7.0 % AO Workflow SS Erythrocyte distribution width (RBC) [Ratio] 15.2 % High 11.5 - 14.5 % AO Workflow SS Hematocrit (Bld) [Volume fraction] 35.9 % Low 37.0 - 47.0 % AO Workflow SS Hemoglobin (Bld) [Mass/Vol] 11.8 G/dL Low 12.0 - 16.0 G/dL AO Workflow SS Lymphocyte, Absolute 1.3 103/mcL Normal 0.8 - 3 .9 10^3/mcL AO Workflow SS Lymphocytes/100 WBC (Bld) 9.1 % Low 10.0 - 50.0 % AO Workflow SS MCH (RBC) [Entitic mass] 28.0 pg Normal 27.0 - 31.2 pg AO Workflow SS MCHC 32.8 G/dL Low 33.0 - 37.0 G/dL AO Workflow SS MCV (RBC) [Entitic vol] 85.5 fL Normal 80.0 - 94.0 fL AO Workflow SS Monocyte, Absolute 0.7 103/mcL Normal 0.2 - 1.0 10^3/mcL AO Workflow SS Monocytes/100 WBC (Bld) 4.8 % Normal 1.7 - 13.0 % AO Workflow SS Neutrophil, Absolute 12.6 103/mcL High 2.9 - 6 .2 10^3/mcL AO Workflow SS Neutrophils/100 WBC (Bld) 85.6 % High 37.0 - 80.0 % AO Workflow SS Platelet mean volume (Bld) [Entitic vol] 7.9 fL Normal 7.4 - 10.4 fL AO Workflow SS Platelets (Bld) [#/Vol] 285 103/mcL Normal 130 - 400 10^3/mcL AO Workflow SS RBC (Bld) [#/Vol] 4.19 106/mcL Low 4.20 - 5.4 0 10^6/mcL AO Workflow SS WBC (Bld) [#/Vol] 14.7 103/mcL High 4.6 - 10.8 10^3/mcL AO Workflow SS LABORATORYOrdered By: Elizabeth Ward on 08-23-2023 Indirect antiglobulin test.IgG specific reagent Ql Negative (08/23/23 10:24 AM) Normal [facility] Manual SS Passive Anti-D Invalid Interpretation Code [facility] Manual SS LABORATORYOrdered By: Kavya Butcher on 08-23-2023 Reagin Ab RPR Ql (S) Non-Reactive 1 (08/23/23 10:24 AM) Normal Non-Reactive Man Viro/Sero SS Comment on above: Interpretive Data: T he RPR test is a non-treponemal assay useful as an aid in the diagnosis of primary and secondary syphilis. It converts to positive generally within 2 weeks after the appearance of a lesion. This test is also useful for monitoring response to antibiotic therapy. A positive RPR screening test will be followed by the FTA ABS test. False positive RPR tests may occur in 1) patients with underlying autoimmune disorders, 2) elderly patients, 3) , and 4) other conditions with abnormal serum globulins. CTPCRon 08-02-2023 C. trachomatis Interp Normal See CT Interp N [facility] ([place]) Comment [place]: Result Comment: C. t rachomatis DNA not detected. Specimen is presumptive negative for C. trachomatis. A negative result does not preclude C. trachomatis infection because results depend on adequate specimen collection, absence of inhibitors, and sufficient DNA to be detected. See CT Interp N Performed By: #### C TPCR, NGPCR1 #### [place] [address] #### GBSPCR #### [address] [address] C.trachomatis PCR Negative Normal Negative [facility] ([place]) Comment on above: Result Comment: Mole cular (PCR) assay performed on the Donnell Jo 4800 system. Performed By: #### C TPCR, NGPCR1 #### [place] [address] #### GBSPCR #### [address] [address] Chlam Source Cervix Normal [facility] ([place]) Comment on above: Performed By: #### C TPCR, NGPCR1 #### [place] [address] #### GBSPCR #### [address] [address] GBSPCRon 08-02-2023 Group B Strep (PCR) Negative Normal Negative [facility] ([place]) Comment on above: Performed By: #### C TPCR, NGPCR1 #### [place] [address] #### GBSPCR #### [address] [address] Group B Strep PCR Int Normal [facility] ([place]) Comment on above: Result Comment: Grou p B Streptococcus DNA not detected by Real-Time Polymerase Chain Reaction (PCR). A negative result does rule out the possibility of Group B Streptococcus concentration is below the level of detection. If the patient has signs or symptoms of infection, other laboratory tests and clinical information should be used to confirm the negative result. This test is not intended to differentiate carriers of Group B Streptococcus from those with Streptococcus disease. See Below Performed By: #### C TPCR, NGPCR1 #### [place] [address] #### GBSPCR #### [address] [address] [id number] 08-02-2023 GC PCR Source Cervix Normal [facility] ([place] Comment on above: Performed By: #### C TPCR, NGPCR1 #### [place] [address] #### GBSPCR #### [address] [address] N. gonorrhoeae (PCR) Negative Normal Negative [facility] ([place] Comment on above: Result Comment: Mole cular (PCR) assay performed on the Donnell Jo 4800 System. Performed By: #### C TPCR, NGPCR1 #### [place] [address] #### GBSPCR #### [address] [address] N. gonorrhoeae Interp Normal See NG Interp N [facility] ([place] Comment on above: Result Comment: N. g onorrhoeae DNA not detected. Specimen is presumptive negative for N. gonorrhoeae. A negative result does not preclude Neisseria gonorrhoeae infection because results depend on adequate specimen collection, absence of inhibitors, and sufficient DNA to be detected. See NG Interp N Performed By: #### C TPCR, NGPCR1 #### [facility] [address] [place], [place] [address] #### GBSPCR #### [facility] [address] [place], [place] [address] LABORATORYOrdered By: Kavya Butcher on 08-01-2023 C. trachomatis DNA BK+probe Ql (Unsp spec) Negative 2 (08/01/23 4:45 PM) Normal Negative AH Auto Viro/Sero SS Comment on above: Interpretive Data: M olecular (PCR) assay performed on the Donnell Jo 4800 system. C. trachomatis DNA BK+probe Ql (Unsp spec) C. trachomatis DNA not detected. Specimen is presumptive negative forC. trachomatis.A negative result does not preclude C. trachomatis infection becauseresults depend on adequate specimen collection, absence of inhibitors,and sufficient DNA to be detected. Normal See CT Interp N AH Auto Viro/Sero SS N. gonorrhoeae DNA BK+probe Ql (Unsp spec) Negative 1 (08/01/23 4:45 PM) Normal Negative AH Auto Viro/Sero SS Comment on above: Interpretive Data: M olecular (PCR) assay performed on the Donnell Jo 4800 System. N. gonorrhoeae DNA BK+probe Ql (Unsp spec) N. gonorrhoeae DNA not detected. Specimen is presumptive negative forN. gonorrhoeae. A negative result does not preclude Neisseria gonorrhoeaeinfection because results depend on adequate specimen collection, absenceof inhibitors, and sufficient DNA to be detected. Normal See NG Interp N AH Auto Viro/Sero SS LABORATORYOrdered By: Priyank gonzales on 08-01-2023 Group B Strep PCR Int Group B Streptococ cus DNA not detected by Real-Time Polymerase Chain Reaction (PCR). A negative result does rule out the possibility of Group B Streptococcus concentration is below the level of detection. If the patient has signs or symptoms of infection, other laboratory tests and clinical information should be used to confirm the negative result. This test is not intended to differentiate carriers of Group B Streptococcus from those with Streptococcus disease. Invalid Interpretation Code AO Auto Urine SS S. agalactiae DNA BK+probe Ql (Vag+Rectum) Negative (08/01/23 4:45 PM) Normal Negative AO Auto Urine SS Laboratory - Specimen inform ationOrdered By: Kavya Butcher on 08-01-2023 Specimen source Nom (Unsp spec) Cervix (08/01/23 4:45 PM) Normal AH Auto Viro/Sero SS RPRon 07-06-2023 Reagin Ab RPR Ql (S) Non-Reactive Normal Non-Reactive [facility] ([place] Comment on above: Result Comment: The RPR test is a non-treponemal assay useful as an aid in the diagnosis of primary and secondary syphilis. It converts to positive generally within 2 weeks after the appearance of a lesion. This test is also useful for monitoring response to antibiotic therapy. A positive RPR screening test will be followed by the FTA ABS test. False positive RPR tests may occur in 1) patients with underlying autoimmune disorders, 2) elderly patients, 3) , and 4) other conditions with abnormal serum globulins. Performed By: #### ART Jacobs [place]O #### [address] [address] .Auto Diffon 07-05-2023 Basophil, Absolute 0.1 10 3/mcL Normal 0.0-0.2 [facility] ([place] Comment on above: Performed By: #### ART Jacobs [place] #### [address] [address] Basophils/100 WBC (Bld) 0.6 % Normal 0.0-2.5 [facility] ([place] Comment on above: Performed By: #### ART Jacobs UAMICKARY #### [address] [address] Eosinophil, Absolute 0.1 10 3/mcL Normal 0.0-0.4 [facility] ([place] Comment on above: Performed By: #### ART Jacobs UAMICKARY #### [address] [address] Eosinophils/100 WBC (Bld) 0.6 % Normal 0.0-7.0 [facility] ([place] Comment on above: Performed By: #### ART Jacobs UAMICKARY #### [address] [place] [address] Lymphocyte, Absolute 2.3 10 3/mcL Normal 0.8-3.9 [facility] ([place] Comment on above: Performed By: #### U A, PREGU, UAM[place]O #### [address] [address] Lymphocytes/100 WBC (Bld) 24.4 % Normal 10.0-50.0 [facility] ([place] Comment on above: Performed By: #### U A, PREGU, UAM[place]O #### [address] [address] Monocyte, Absolute 0.6 10 3/mcL Normal 0.2-1.0 [facility] ([place] Comment on above: Performed By: #### U A, PREGU, UAM[place]O #### [address] [address] Monocytes/100 WBC (Bld) 6.7 % Normal 1.7-13.0 [facility] ([place] Comment on above: Performed By: #### U A, PREGU, UAM[place]O #### [address] [address] Neutrophils/100 WBC (Bld) 67.7 % Normal 37.0-80.0 [facility] ([place] Comment on above: Performed By: #### U A, PREGU, UAM[place]O #### [address] [address] .NEUABSon 07-05-2023 Neutrophil, Absolute 6.3 10 3/mcL High 2.9-6.2 [facility] ([place] Comment on above: Performed By: #### U A, PREGU, UAM[place]O #### [address] [address] ABO/Rh (Gel)on 07-05-2023 ABO/Rh Interp Negative Invalid Interpretation Code [facility] ([place] Comment on above: Performed By: #### C TPCR, NGPCR1 #### [address] [address] #### GBSPCR #### [address] [address] ABS (Gel)on 07-05-2023 ABSC Interp (Gel) Negative Normal [facility] ([place] Comment on above: Performed By: #### C TPCR, NGPCR1 #### [facility] [address] [place] [address] #### GBSPCR #### [address] [address] CBCon 07-05-2023 Erythrocyte distribution width (RBC) [Ratio] 13.5 % Normal 11.5-14.5 [facility] ([place] Comment on above: Performed By: #### ART Jacobs [place]AM[place]O #### [address] [address] Hematocrit (Bld) [Volume fraction] 33.2 % Low 37.0-47.0 [facility] ([place] Comment on above: Performed By: #### ART Jacobs [place]O #### [address] [address] Hgb 11.3 G/dL Low 12.0-16.0 [facility] ([place] Comment on above: Performed By: #### ART Jacobs [place]O #### [address] [address] MCH (RBC) [Entitic mass] 30.0 pg Normal 27.0-31.2 [facility] ([place] Comment on above: Performed By: #### U ART Lawrence [place]O #### [address] [address] MCHC 33.9 G/dL Normal 33.0-37.0 [facility] ([place] Comment on above: Performed By: #### U ART Lawrence [place]O #### [address] [address] MCV (RBC) [Entitic vol] 88.4 fL Normal 80.0-94.0 [facility] ([place] Comment on above: Performed By: #### U ART Lawrence, UAM[place]O #### [address] [address] Platelet 287 10 3/mcL Normal 130-400 [facility] ([place] Comment on above: Performed By: #### U A PREGU, UAMICAO #### [address] [address] Platelet mean volume (Bld) [Entitic vol] 7.5 fL Normal 7.4-10.4 [facility] ([place] Comment on above: Performed By: #### U A PREGU, UAMICAO #### [place] [address] RBC 3.75 10 6/mcL Low 4.20-5.40 [facility] ([place] Comment on above: Performed By: #### U A PREGU, UAMICAO #### [place] [address] WBC 9.3 10 3/mcL Normal 4.6-10.8 [facility] ([place] Comment on above: Performed By: #### U Melinda PREGU, UAMICAO #### [place] [address] [id number] 07-05-2023 Glucose [Mass/Vol] 133 mg/dL Normal 70-140 [facility] ([place] Comment on above: Performed By: #### U A PREGU, UAMICAO #### [place] [address] LABORATORYOrdered By: SYSTEM SYSTEM on 07-05-2023 Glucose [Mass/Vol] 133 mg/dL Normal 70 - 140 mg/dL AO ADM SS Basophil, Absolute 0.1 103/mcL Normal 0.0 - 0.2 10^3/mcL AO Workflow SS Basophils/100 WBC (Bld) 0.6 % Normal 0.0 - 2.5 % AO Workflow SS Eosinophil, Absolute 0.1 103/mcL Normal 0.0 - 0 .4 10^3/mcL AO Workflow SS Eosinophils/100 WBC (Bld) 0.6 % Normal 0.0 - 7.0 % AO Workflow SS Erythrocyte distribution width (RBC) [Ratio] 13.5 % Normal 11.5 - 14.5 % AO Workflow SS Hematocrit (Bld) [Volume fraction] 33.2 % Low 37.0 - 47.0 % AO Workflow SS Hemoglobin (Bld) [Mass/Vol] 11.3 G/dL Low 12.0 - 16.0 G/dL AO Workflow SS Lymphocyte, Absolute 2.3 103/mcL Normal 0.8 - 3 .9 10^3/mcL AO Workflow SS Lymphocytes/100 WBC (Bld) 24.4 % Normal 10.0 - 50.0 % AO Workflow SS MCH (RBC) [Entitic mass] 30.0 pg Normal 27.0 - 31.2 pg AO Workflow SS MCHC 33.9 G/dL Normal 33.0 - 37.0 G/dL AO Workflow SS MCV (RBC) [Entitic vol] 88.4 fL Normal 80.0 - 94.0 fL AO Workflow SS Monocyte, Absolute 0.6 103/mcL Normal 0.2 - 1.0 10^3/mcL AO Workflow SS Monocytes/100 WBC (Bld) 6.7 % Normal 1.7 - 13.0 % AO Workflow SS Neutrophil, Absolute 6.3 103/mcL High 2.9 - 6 .2 10^3/mcL AO Workflow SS Neutrophils/100 WBC (Bld) 67.7 % Normal 37.0 - 80.0 % AO Workflow SS Platelet mean volume (Bld) [Entitic vol] 7.5 fL Normal 7.4 - 10.4 fL AO Workflow SS Platelets (Bld) [#/Vol] 287 103/mcL Normal 130 - 400 10^3/mcL AO Workflow SS RBC (Bld) [#/Vol] 3.75 106/mcL Low 4.20 - 5.4 0 10^6/mcL AO Workflow SS WBC (Bld) [#/Vol] 9.3 103/mcL Normal 4.6 - 10.8 10^3/mcL AO Workflow SS LABORATORYOrdered By: Danny Manley on 07-05-2023 ABO and Rh group Nom (Bld) Blood group A Rh(D) negative Invalid Interpretation Code AO BB Auto SS Blood group antibody screen Ql Negative ABSC (07/05/23 9:48 AM) Normal AO BB Auto SS AMNIon 07-03-2023 Amnisure Negative Normal Negative [facility] ([place] Comment on above: Performed By: #### U A, PREGU, UAMICAO #### [place] [address] LABORATORYOrdered By: Cheryl Blue on 07-03-2023 Wpvag-1-Mzmbdabfhkdrm .placental Ql (Vag fld) Negative (07/03/23 2:18 AM) Normal Negative AO Rapid Testing SS VARISon 05-15-[address] Positive Normal [facility] ([place] Comment on above: Result Comment: INTE RPRETATION OF VARICELLA IMMUNE STATUS IgG BY EIA: Negative: No detectable VZV IgG antibody. Positive: VZV IgG antibody Detected. If clinically indicated, order Varicella IgM to rule out recent infection. Equivocal: Equivocal for antibodies to VZV. Suggest repeat testing in 10-14 days. Performed By: #### C TPCR, NGPCR1 #### [place] [address] #### GBSPCR #### [place] [address] HBSAGon 05-12-2023 Hep B Surf Ag Non-Reactive Normal Non-Reactive [facility] ([place] Comment on above: Performed By: #### C TPCR, NGPCR1 #### [place] [address] #### GBSPCR #### [place] [address] HCVon 05-12-2023 Hep C Ab Non-Reactive Normal Non-Reactive [facility]) Comment on above: Performed By: #### C TPCR, NGPCR1 #### [place] [address] #### GBSPCR #### [place] [address] Hep C Ab Int Normal [facility]) Comment on above: Result Comment: Nonr eactive: Samples with a value < 0.80 are considered nonreactive (negative) for antibodies to HCV. A negative test result does not exclude the possibility of exposure to or infection with HCV. HCV antibodies may be undetectable in some stages of the infection and in some clinical conditions. See Interp Performed By: #### C TPCR, NGPCR1 #### [place] [address] #### GBSPCR #### [place] [address] RPRon 05-12-2023 Reagin Ab RPR Ql (S) Non-Reactive Normal Non-Reactive [facility] ([place]) Comment on above: Result Comment: The RPR test is a non-treponemal assay useful as an aid in the diagnosis of primary and secondary syphilis. It converts to positive generally within 2 weeks after the appearance of a lesion. This test is also useful for monitoring response to antibiotic therapy. A positive RPR screening test will be followed by the FTA ABS test. False positive RPR tests may occur in 1) patients with underlying autoimmune disorders, 2) elderly patients, 3) , and 4) other conditions with abnormal serum globulins. Performed By: #### C TPCR, NGPCR1 #### [place] [address] #### GBSPCR #### [place] [address] RUBISon 05-12-[address] Positive Normal Positive [facility] ([place]) Comment on above: Result Comment: This immune status assay detects IgM and/or IgG antibody to Rubella. Interpret results in conjunction with clinical history. POS: Antibody detected; exposure at undetermined recent or distant time. If clinically indicated, order Rubella IGM to rule out recent infection. NEG: No antibody detected. Performed By: #### C TPCR, NGPCR1 #### [place] [address] #### GBSPCR #### [place] [address] .Auto Diffon 05-11-2023 Basophil, Absolute 0.0 10 3/mcL Normal 0.0-0.2 [facility] ([place]) Comment on above: Performed By: #### C BC, ADIFF, GFR, CMP, MORPH, ANEU #### [place] [address] #### RPR, RUBIS, HCV1, HBSAG, VARIS #### [address] [address] Basophils/100 WBC (Bld) 0.6 % Normal 0.0-2.5 [facility] ([place]) Comment on above: Performed By: #### C BC, ADIFF, GFR, CMP, MORPH, ANEU #### [place] [address] #### RPR, RUBIS, HCV1, HBSAG, VARIS #### [address] [address] Eosinophil, Absolute 0.0 10 3/mcL Normal 0.0-0.4 [facility] ([place]) Comment on above: Performed By: #### C BC, ADIFF, GFR, CMP, MORPH, ANEU #### [place] [address] #### RPR, RUBIS, HCV1, HBSAG, VARIS #### [address] [address] Eosinophils/100 WBC (Bld) 0.6 % Normal 0.0-7.0 [facility] ([place]) Comment on above: Performed By: #### C BC, ADIFF, GFR, CMP, MORPH, ANEU #### [place] [address] #### RPR, RUBIS, HCV1, HBSAG, VARIS #### [address] [address] Lymphocyte, Absolute 1.6 10 3/mcL Normal 0.8-3.9 [facility] ([place]) Comment on above: Performed By: #### C BC, ADIFF, GFR, CMP, MORPH, ANEU #### [place] [address] #### RPR, RUBIS, HCV1, HBSAG, VARIS #### [address] [address] Lymphocytes/100 WBC (Bld) 19.9 % Normal 10.0-50.0 [facility] ([place]) Comment on above: Performed By: #### C BC, ADIFF, GFR, CMP, MORPH, ANEU #### [address] [address] #### RPR, RUBIS, HCV1, HBSAG, VARIS #### [address] [address] Monocyte, Absolute 0.6 10 3/mcL Normal 0.2-1.0 [facility] ([place]) Comment on above: Performed By: #### C BC, ADIFF, GFR, CMP, MORPH, ANEU #### [place] [address] #### RPR, RUBIS, HCV1, HBSAG, VARIS #### [address] [address] Monocytes/100 WBC (Bld) 7.3 % Normal 1.7-13.0 [facility] ([place]) Comment on above: Performed By: #### C BC, ADIFF, GFR, CMP, MORPH, ANEU #### [place] [address] #### RPR, RUBIS, HCV1, HBSAG, VARIS #### [address] [address] Neutrophils/100 WBC (Bld) 71.6 % Normal 37.0-80.0 [facility] ([place]) Comment on above: Performed By: #### C BC, ADIFF, GFR, CMP, MORPH, ANEU #### [place] [address] #### RPR, RUBIS, HCV1, HBSAG, VARIS #### [address] [address] .GFRon 05-11-2023 GFR 220 ml/min/1.73sqm Normal [facility] ([place]) Comment on above: Result Comment: GFR Population mean for , Non- Americans Ages 20-29 = 116 mL/min/1.73 sq.m. Ages 30-39 = 107 mL/min/1.73 sq.m. Ages 40-49 = 99 mL/min/1.73 sq.m. Ages 50-59 = 93 mL/min/1.73 sq.m. Ages 60-69 = 85 mL/min/1.73 sq.m. Ages 70+ = 75 mL/min/1.73 sq.m. Chronic Kidney Disease: Less than 60 mL/min/1.73 square meters End Stage Renal Disease: Less than 15 mL/min/1.73 square meters Performed By: #### C TPCR, NGPCR1 #### [place] [address] #### GBSPCR #### [address] [address] GFR Non- 181 ml/min/1.73sqm Normal [facility] ([place]) Comment on above: Result Comment: GFR Population mean for , Non- Americans Ages 20-29 = 116 mL/min/1.73 sq.m. Ages 30-39 = 107 mL/min/1.73 sq.m. Ages 40-49 = 99 mL/min/1.73 sq.m. Ages 50-59 = 93 mL/min/1.73 sq.m. Ages 60-69 = 85 mL/min/1.73 sq.m. Ages 70+ = 75 mL/min/1.73 sq.m. Chronic Kidney Disease: Less than 60 mL/min/1.73 square meters End Stage Renal Disease: Less than 15 mL/min/1.73 square meters Performed By: #### C TPCR, NGPCR1 #### [place] [address] #### GBSPCR #### [address] [address] .Morphon 05-11-2023 Platelet Estimate Normal Normal [facility] ([place]) Comment on above: Performed By: #### C TPCR, NGPCR1 #### [place] [address] #### GBSPCR #### [address] [address] RBC morphology finding Nom (Bld) Normal Normal [facility] ([place]) Comment on above: Performed By: #### C TPCR, NGPCR1 #### [place] [address] #### GBSPCR #### [place] [address] .NEUABSon 05-11-2023 Neutrophil, Absolute 5.6 10 3/mcL Normal 2.9-6.2 [facility] ([place]) Comment on above: Performed By: #### C BC, ADIFF, GFR, CMP, MORPH, ANEU #### [place] [address] #### RPR, RUBIS, HCV1, HBSAG, VARIS #### [place] [address] CBCon 05-11-2023 Erythrocyte distribution width (RBC) [Ratio] 13.7 % Normal 11.5-14.5 [facility] ([place]) Comment on above: Performed By: #### C BC, ADIFF, GFR, CMP, MORPH, ANEU #### [place] [address] #### RPR, RUBIS, HCV1, HBSAG, VARIS #### [place] [address] Hematocrit (Bld) [Volume fraction] 31.1 % Low 37.0-47.0 [facility] ([place]) Comment on above: Performed By: #### C BC, ADIFF, GFR, CMP, MORPH, ANEU #### [place] [address] #### RPR, RUBIS, HCV1, HBSAG, VARIS #### [place] [address] Hgb 10.9 G/dL Low 12.0-16.0 [facility] ([place]) Comment on above: Performed By: #### C BC, ADIFF, GFR, CMP, MORPH, ANEU #### [place] [address] #### RPR, RUBIS, HCV1, HBSAG, VARIS #### [place] [address] MCH (RBC) [Entitic mass] 32.0 pg High 27.0-31.2 [facility] ([place]) Comment on above: Performed By: #### C BC, ADIFF, GFR, CMP, MORPH, ANEU #### [place] [address] #### RPR, RUBIS, HCV1, HBSAG, VARIS #### [address] [address] MCHC 35.0 G/dL Normal 33.0-37.0 [facility] ([place]) Comment on above: Performed By: #### C BC, ADIFF, GFR, CMP, MORPH, ANEU #### [place] [address] #### RPR, RUBIS, HCV1, HBSAG, VARIS #### [place] [address] MCV (RBC) [Entitic vol] 91.4 fL Normal 80.0-94.0 [facility] ([place]) Comment on above: Performed By: #### C BC, ADIFF, GFR, CMP, MORPH, ANEU #### [place] [address] #### RPR, RUBIS, HCV1, HBSAG, VARIS #### [address] [address] Platelet 283 10 3/mcL Normal 130-400 [facility] ([place]) Comment on above: Performed By: #### C BC, ADIFF, GFR, CMP, MORPH, ANEU #### [place] [address] #### RPR, RUBIS, HCV1, HBSAG, VARIS #### [place] [address] Platelet mean volume (Bld) [Entitic vol] 7.4 fL Normal 7.4-10.4 [facility] ([place]) Comment on above: Performed By: #### C BC, ADIFF, GFR, CMP, MORPH, ANEU #### [place] [address] #### RPR, RUBIS, HCV1, HBSAG, VARIS #### [place] [address] RBC 3.41 10 6/mcL Low 4.20-5.40 [facility] ([place]) Comment on above: Performed By: #### C BC, ADIFF, GFR, CMP, MORPH, ANEU #### [address] [address] #### RPR, RUBIS, HCV1, HBSAG, VARIS #### [place] [address] WBC 7.8 10 3/mcL Normal 4.6-10.8 [facility] ([place]) Comment on above: Performed By: #### C BC, ADIFF, GFR, CMP, MORPH, ANEU #### [address] [address] #### RPR, RUBIS, HCV1, HBSAG, VARIS #### [place] [address] CMPon 05-11-2023 Albumin Level 3.2 G/dL Low 3.5-5.0 [facility] ([place]) Comment on above: Performed By: #### C TPCR, NGPCR1 #### [place] [address] #### GBSPCR #### [address] [address] Albumin/Globulin [Mass ratio] 0.9 {ratio} Low 1.1-2.5 [facility] ([place]) Comment on above: Performed By: #### C TPCR, NGPCR1 #### [place] [address] #### GBSPCR #### [address] [address] ALP [Catalytic activity/Vol] 52 U/L Normal 40-135 [facility] ([place]) Comment on above: Performed By: #### C TPCR, NGPCR1 #### [place] [address] #### GBSPCR #### [address] [address] ALT [Catalytic activity/Vol] 21 U/L Normal 14-59 [facility] ([place]) Comment on above: Performed By: #### C TPCR, NGPCR1 #### [address] [address] #### GBSPCR #### [address] [address] AST [Catalytic activity/Vol] 14 U/L Normal 10-40 [facility] ([place]) Comment on above: Performed By: #### C TPCR, NGPCR1 #### [place] [address] #### GBSPCR #### [address] [address] Bili Total 0.8 mg/dL Normal 0.2-1.0 [facility] ([place]) Comment on above: Result Comment: Use of this assay is not recommended for patients undergoing treatment with eltrombopag due to the potential for falsely elevated results. Performed By: #### C TPCR, NGPCR1 #### [place] [address] #### GBSPCR #### [address] [address] BUN/Creatinine Ratio 24 ratio Normal 7-27 [facility] ([place]) Comment on above: Performed By: #### C TPCR, NGPCR1 #### [place] [address] #### GBSPCR #### [address] [address] Calcium [Mass/Vol] 9.0 mg/dL Normal 8.4-10.2 [facility] ([place]) Comment on above: Performed By: #### C TPCR, NGPCR1 #### [place] [address] #### GBSPCR #### [address] [address] Chloride [Moles/Vol] 103 mmol/L Normal 98-107 [facility] ([place]) Comment on above: Performed By: #### C TPCR, NGPCR1 #### [place] [address] #### GBSPCR #### [address] [address] CO2 [Moles/Vol] 26 mmol/L Normal 22-29 [facility] ([place]) Comment on above: Performed By: #### C TPCR, NGPCR1 #### [place] [address] #### GBSPCR #### [address] [address] Creatinine [Mass/Vol] 0.45 mg/dL Low 0.55-1.02 [facility] ([place]) Comment on above: Performed By: #### C TPCR, NGPCR1 #### [place] [address] #### GBSPCR #### [address] [address] Electrolyte Balance 8.0 mEq/L Normal 4.0-15.0 [facility] ([place]) Comment on above: Performed By: #### C TPCR, NGPCR1 #### [place] [address] #### GBSPCR #### [address] [address] Globulin 3.7 G/dL Normal [facility] ([place]) Comment on above: Performed By: #### C TPCR, NGPCR1 #### [place] [address] #### GBSPCR #### [address] [address] Glucose [Mass/Vol] 92 mg/dL Normal 70-105 [facility] ([place]) Comment on above: Performed By: #### C TPCR, NGPCR1 #### [place] [address] #### GBSPCR #### [address] [address] Potassium [Moles/Vol] 4.3 mmol/L Normal 3.5-5.1 [facility] ([place]) Comment on above: Performed By: #### C TPCR, NGPCR1 #### [place] [address] #### GBSPCR #### [address] [address] Sodium [Moles/Vol] 137 mmol/L Normal 136-145 [facility] ([place]) Comment on above: Performed By: #### C TPCR, NGPCR1 #### [place] [address] #### GBSPCR #### [address] [address] Total Protein 6.9 G/dL Normal 6.4-8.2 [facility] ([place]) Comment on above: Performed By: #### C TPCR, NGPCR1 #### [place] [address] #### GBSPCR #### [address] [address] Urea nitrogen [Mass/Vol] 11 mg/dL Normal 7-18 [facility] ([place]) Comment on above: Performed By: #### C TPCR, NGPCR1 #### [place] [address] #### GBSPCR #### [address] [address] Gel ABOon 05-11-2023 ABO/Rh Interp Negative Invalid Interpretation Code [facility] ([place]) Comment on above: Performed By: #### U A, PREGU, UAMICAO #### [address] [address] Gel ABSon 05-11-2023 Antibody Screen Gel Negative Normal [facility] ([place]) Comment on above: Performed By: #### U A, PREGU, UAMICAO #### [address] [address] .Urinalysis Microscopic (AO) on 03-12-2023 UA Bacteria 1+ /hpf Abnormal [facility] ([place]) Comment on above: Performed By: #### U A, PREGU, UAMICAO #### [address] [address] UA Mucous Trace Normal [facility] ([place]) Comment on above: Performed By: #### U A, PREGU, UAMICAO #### [place] [address] UA RBC 0-5 Abnormal None Seen [facility] ([place]) Comment on above: Performed By: #### U A, PREGU, UAMICAO #### [place] [address] UA Squam Epithelial 15-25 Abnormal None Seen [facility] ([place] Comment on above: Performed By: #### U A, PREGU, UAMICAO #### [place] [address] UA WBC 5-10 Abnormal None Seen [facility] ([place] Comment on above: Performed By: #### U A, PREGU, UAMICAO #### [place] [address] LABORATORYOrdered By: Elizabeth Ward on 03-12-2023 Appearance (U) Clear (03/12/23 1:40 PM) Normal Clear AO Auto Urine SS Bacteria LM.HPF (Urine sed) [#/Area] 1 /[HPF] Invalid Interpretation Code AO Auto Urine SS Bilirubin Ql (U) Negative (03/12/23 1:40 PM) Normal Negative AO Auto Urine SS Color (U) Yellow (03/12/23 1:40 PM) Normal AO Auto Urine SS Glucose Test strip (U) [Mass/Vol] Negative Normal Negative AO Auto Urine SS HCG ( test) Ql Positive (03/12/23 1:40 PM) Normal AO Manual Urine SS Hemoglobin Auto test strip (U) [Mass/Vol] Negative (03/12/23 1:40 PM) Normal Negative AO Auto Urine SS Ketones Ql (U) Negative Normal Negative AO Auto Urine SS test (u) int Detected Invalid Interpretation Code AO Manual Urine SS UA Leuk Est Trace *ABN* (03/12/23 1:40 PM) Invalid Interpretation Code Negative AO Auto Urine SS UA Mucous Trace /HPF Normal AO Auto Urine SS UA Nitrite Negative (03/12/23 1:40 PM) Normal Negative AO Auto Urine SS UA pH 6.5 (03/12/23 1:40 PM) Normal 5.0 - 8.0 AO Auto Urine SS UA Protein Negative Normal Negative AO Auto Urine SS UA RBC 0-5 /HPF Invalid Interpretation Code None Seen AO Auto Urine SS UA Spec Grav 1.020 (03/12/23 1:40 PM) Normal 1.015-1.025 AO Auto Urine SS UA Specimen Type Clean Catch (03/12/23 1:40 PM) Normal AO Auto Urine SS UA Squam Epithelial 15-25 /HPF Invalid Interpretation Code None Seen AO Auto Urine SS UA Urobilinogen 0.2 E.U./dL Normal 0.2-1.0 AO Auto Urine SS WBC LM.HPF (Urine sed) [#/Area] 5-10 /HPF Invalid Interpretation Code None Seen AO Auto Urine SS PREGUon 03-12-2023 HCG ( test) Ql (U) Positive Normal [facility] ([place]) Comment on above: Performed By: #### U A, PREGU, UAMICAO #### [address] [address] test (u) int Detected Invalid Interpretation Code [facility] ([place]) Comment on above: Performed By: #### U A, PREGU, UAMICAO #### [address] [address] UAon 03-12-2023 Color (U) Yellow Normal [facility] ([place]) Comment on above: Performed By: #### U A, PREGU, UAMICAO #### [address] [address] Glucose (U) [Mass/Vol] Negative Normal Negative [facility] ([place]) Comment on above: Performed By: #### U A, PREGU, UAMICAO #### [address] [address] Ketones Ql (U) Negative Normal Negative [facility] ([place]) Comment on above: Performed By: #### U A, PREGU, UAMICAO #### [address] [address] UA Appear Clear Normal Clear [facility] ([place]) Comment on above: Performed By: #### U A, PREGU, UAMICAO #### [address] [address] UA Blood Negative Normal Negative [facility] ([place] Comment on above: Performed By: #### U A, PREGU, UAMICAO #### [address] [address] UA Leuk Est Trace Abnormal Negative [facility] ([place]) Comment on above: Performed By: #### U A, PREGU, UAMICAO #### [place] [address] UA Nitrite Negative Normal Negative [facility] ([place] Comment on above: Performed By: #### U A, PREGU, UAMICAO #### [place] [address] UA pH 6.5 Normal 5.0 - 8.0 [facility] ([place]) Comment on above: Performed By: #### U A, PREGU, UAMICAO #### [place] [address] UA Protein Negative Normal Negative [facility] ([place] Comment on above: Performed By: #### U A, PREGU, UAMICAO #### [place] [address] UA Spec Grav 1.020 Normal 1.015-1.025 [facility] ([place] Comment on above: Performed By: #### U A, PREGU, UAMICAO #### [place] [address] UA Specimen Type Clean Catch Normal [facility] ([place]) Comment on above: Performed By: #### U A, PREGU, UAMICAO #### [place] [address] UA Urobilinogen 0.2 E.U./dL Normal 0.2-1.0 [facility] ([place] Comment on above: Performed By: #### U A PREGU UAMICAO #### [address] [address] Urobilinogen (U) [Mass/Vol] Negative Normal Negative [facility] ([place]) Comment on above: Performed By: #### U A PREGU, UAMICAO #### [address] [address] .Auto Diffon 02-16-2023 Basophil, Absolute 0.1 10 3/mcL Normal 0.0-0.2 [facility] ([place]) Comment on above: Performed By: #### C TPCR, NGPCR1 #### [place] [address] #### GBSPCR #### [address] [address] Basophils/100 WBC (Bld) 0.7 % Normal 0.0-2.5 [facility] ([place]) Comment on above: Performed By: #### C TPCR, NGPCR1 #### [place] [address] #### GBSPCR #### [address] [address] Eosinophil, Absolute 0.0 10 3/mcL Normal 0.0-0.4 [facility] ([place]) Comment on above: Performed By: #### C TPCR, NGPCR1 #### [place] [address] #### GBSPCR #### [address] [address] Eosinophils/100 WBC (Bld) 0.4 % Normal 0.0-7.0 [facility] ([place]) Comment on above: Performed By: #### C TPCR, NGPCR1 #### [place] [address] #### GBSPCR #### [address] [address] Lymphocyte, Absolute 1.9 10 3/mcL Normal 0.8-3.9 [facility] ([place]) Comment on above: Performed By: #### C TPCR, NGPCR1 #### [place] [address] #### GBSPCR #### [address] [address] Lymphocytes/100 WBC (Bld) 19.7 % Normal 10.0-50.0 [facility] ([place]) Comment on above: Performed By: #### C TPCR, NGPCR1 #### [place] [address] #### GBSPCR #### [address] [address] Monocyte, Absolute 0.7 10 3/mcL Normal 0.2-1.0 [facility] ([place] Comment on above: Performed By: #### C TPCR, NGPCR1 #### [place] [address] #### GBSPCR #### [address] [address] Monocytes/100 WBC (Bld) 7.0 % Normal 1.7-13.0 [facility] ([place]) Comment on above: Performed By: #### C TPCR, NGPCR1 #### [place] [address] #### GBSPCR #### [address] [address] Neutrophils/100 WBC (Bld) 72.2 % Normal 37.0-80.0 [facility] ([place]) Comment on above: Performed By: #### C TPCR, NGPCR1 #### [place] [address] #### GBSPCR #### [address] [address] .GFRon 02-16-2023 GFR Non- 150 ml/min/1.73sqm Normal [facility] ([place]) Comment on above: Result Comment: GFR Population mean for , Non- Americans Ages 20-29 = 116 mL/min/1.73 sq.m. Ages 30-39 = 107 mL/min/1.73 sq.m. Ages 40-49 = 99 mL/min/1.73 sq.m. Ages 50-59 = 93 mL/min/1.73 sq.m. Ages 60-69 = 85 mL/min/1.73 sq.m. Ages 70+ = 75 mL/min/1.73 sq.m. Chronic Kidney Disease: Less than 60 mL/min/1.73 square meters End Stage Renal Disease: Less than 15 mL/min/1.73 square meters Performed By: #### C TPCR, NGPCR1 #### [place] [address] #### GBSPCR #### [address] [address] GFR 182 ml/min/1.73sqm Normal [facility] ([place]) Comment on above: Result Comment: GFR Population mean for , Non- Americans Ages 20-29 = 116 mL/min/1.73 sq.m. Ages 30-39 = 107 mL/min/1.73 sq.m. Ages 40-49 = 99 mL/min/1.73 sq.m. Ages 50-59 = 93 mL/min/1.73 sq.m. Ages 60-69 = 85 mL/min/1.73 sq.m. Ages 70+ = 75 mL/min/1.73 sq.m. Chronic Kidney Disease: Less than 60 mL/min/1.73 square meters End Stage Renal Disease: Less than 15 mL/min/1.73 square meters Performed By: #### C TPCR, NGPCR1 #### [place] [address] #### GBSPCR #### [address] [address] .MDWon 02-16-2023 Monocyte Distribution Width 16.52 Normal 0.00-20.00 [facility] ([place]) Comment on above: Result Comment: For ED adult patients suspected of sepsis, MDW<=20.0 does not rule out sepsis or risk of sepsis Performed By: #### C TPCR, NGPCR1 #### [place] [address] #### GBSPCR #### [place] [address] .NEUABSon 02-16-2023 Neutrophil, Absolute 7.0 10 3/mcL High 2.9-6.2 [facility] ([place] Comment on above: Performed By: #### C TPCR, NGPCR1 #### [place] [address] #### GBSPCR #### [place] [address] .Urinalysis Microscopic (AO) on 02-16-2023 UA Amorphus 2+ /hpf Normal [facility] ([place]) Comment on above: Performed By: #### C TPCR, NGPCR1 #### [place] [address] #### GBSPCR #### [place] [address] UA Bacteria 1+ /hpf Abnormal [facility] ([place] Comment on above: Performed By: #### C TPCR, NGPCR1 #### [place] [address] #### GBSPCR #### [address] [address] UA RBC 0-5 Abnormal None Seen [facility] ([place] Comment on above: Performed By: #### C TPCR, NGPCR1 #### [place] [address] #### GBSPCR #### [address] [address] UA Squam Epithelial 0-5 Abnormal None Seen [facility] ([place] Comment on above: Performed By: #### C TPCR, NGPCR1 #### [place] [address] #### GBSPCR #### [address] [address] UA WBC 0-5 Abnormal None Seen [facility] ([place] Comment on above: Performed By: #### C TPCR, NGPCR1 #### [place] [address] #### GBSPCR #### [address] [address] CBCon 02-16-2023 Erythrocyte distribution width (RBC) [Ratio] 14.7 % High 11.5-14.5 [facility] ([place] Comment on above: Performed By: #### C TPCR, NGPCR1 #### [place] [address] #### GBSPCR #### [place] [id number] Hematocrit (Bld) [Volume fraction] 37.5 % Normal 37.0-47.0 [facility] ([place] Comment on above: Performed By: #### C TPCR, NGPCR1 #### [place] [address] #### GBSPCR #### [place] [id number] Hgb 12.7 G/dL Normal 12.0-16.0 [facility] ([place] Comment on above: Performed By: #### C TPCR, NGPCR1 #### [place] [address] #### GBSPCR #### [address] [address] MCH (RBC) [Entitic mass] 29.5 pg Normal 27.0-31.2 [facility] ([place] Comment on above: Performed By: #### C TPCR, NGPCR1 #### [place] [address] #### GBSPCR #### [place] [id number] MCHC 34.0 G/dL Normal 33.0-37.0 [facility] ([place] Comment on above: Performed By: #### C TPCR, NGPCR1 #### [place] [address] #### GBSPCR #### [address] [address] MCV (RBC) [Entitic vol] 87.0 fL Normal 80.0-94.0 [facility] ([place] Comment on above: Performed By: #### C TPCR, NGPCR1 #### [place] [address] #### GBSPCR #### [address] [address] Platelet 277 10 3/mcL Normal 130-400 [facility] ([place] Comment on above: Performed By: #### C TPCR, NGPCR1 #### [place] [address] #### GBSPCR #### [address] [address] Platelet mean volume (Bld) [Entitic vol] 6.9 fL Low 7.4-10.4 [facility] ([place]) Comment on above: Performed By: #### C TPCR, NGPCR1 #### [place] [address] #### GBSPCR #### [address] [address] RBC 4.31 10 6/mcL Normal 4.20-5.40 [facility] ([place] Comment on above: Performed By: #### C TPCR, NGPCR1 #### [place] [address] #### GBSPCR #### [address] [address] WBC 9.7 10 3/mcL Normal 4.6-10.8 [facility] ([place] Comment on above: Performed By: #### C TPCR, NGPCR1 #### [place] [address] #### GBSPCR #### [address] [address] CMPon 02-16-2023 Albumin Level 3.7 G/dL Normal 3.5-5.0 [facility] ([place]) Comment on above: Performed By: #### C TPCR, NGPCR1 #### [place] [address] #### GBSPCR #### [address] [address] Albumin/Globulin [Mass ratio] 1.0 {ratio} Low 1.1-2.5 [facility] ([place] Comment on above: Performed By: #### C TPCR, NGPCR1 #### [place] [address] #### GBSPCR #### [address] [address] ALP [Catalytic activity/Vol] 47 U/L Normal 40-135 [facility] ([place] Comment on above: Performed By: #### C TPCR, NGPCR1 #### [place] [address] #### GBSPCR #### [address] [address] ALT [Catalytic activity/Vol] 16 U/L Normal 14-59 [facility] ([place] Comment on above: Performed By: #### C TPCR, NGPCR1 #### [place] [address] #### GBSPCR #### [address] [address] AST [Catalytic activity/Vol] 14 U/L Normal 10-40 [facility] ([place] Comment on above: Performed By: #### C TPCR, NGPCR1 #### [place] [address] #### GBSPCR #### [address] [address] Bili Total 0.7 mg/dL Normal 0.2-1.0 [facility] ([place]) Comment on above: Result Comment: Use of this assay is not recommended for patients undergoing treatment with eltrombopag due to the potential for falsely elevated results. Performed By: #### C TPCR, NGPCR1 #### [place] [address] #### GBSPCR #### [address] [address] BUN/Creatinine Ratio 30 ratio High 7-27 [facility] ([place] Comment on above: Performed By: #### C TPCR, NGPCR1 #### [place] [address] #### GBSPCR #### [address] [address] Calcium [Mass/Vol] 9.6 mg/dL Normal 8.4-10.2 [facility] ([place]) Comment on above: Performed By: #### C TPCR, NGPCR1 #### [place] [address] #### GBSPCR #### [address] [address] Chloride [Moles/Vol] 102 mmol/L Normal 98-107 [facility] ([place] Comment on above: Performed By: #### C TPCR, NGPCR1 #### [place] [address] #### GBSPCR #### [address] [address] CO2 [Moles/Vol] 23 mmol/L Normal 22-29 [facility] ([place] Comment on above: Performed By: #### C TPCR, NGPCR1 #### [place] [address] #### GBSPCR #### [address] [address] Creatinine [Mass/Vol] 0.53 mg/dL Low 0.55-1.02 [facility] [facility] ([place] Comment on above: Performed By: #### C TPCR, NGPCR1 #### [place] [address] #### GBSPCR #### [address] [address] Electrolyte Balance 11.0 mEq/L Normal 4.0-15.0 [facility] ([place]) Comment on above: Performed By: #### C TPCR, NGPCR1 #### [place] [address] #### GBSPCR #### [address] [address] Globulin 3.8 G/dL Normal [facility] ([place]) Comment on above: Performed By: #### C TPCR, NGPCR1 #### [place] [address] #### GBSPCR #### [address] [address] Glucose [Mass/Vol] 90 mg/dL Normal 70-105 [facility] ([place]) Comment on above: Performed By: #### C TPCR, NGPCR1 #### [place] [address] #### GBSPCR #### [address] [address] Potassium [Moles/Vol] 3.7 mmol/L Normal 3.5-5.1 [facility] ([place]) Comment on above: Performed By: #### C TPCR, NGPCR1 #### [place] [address] #### GBSPCR #### [address] [address] Sodium [Moles/Vol] 136 mmol/L Normal 136-145 [facility] ([place]) Comment on above: Performed By: #### C TPCR, NGPCR1 #### [place] [address] #### GBSPCR #### [address] [address] Total Protein 7.5 G/dL Normal 6.4-8.2 [facility] ([place]) Comment on above: Performed By: #### C TPCR, NGPCR1 #### [place] [address] #### GBSPCR #### [facility] [address] [place], [place] [address] Urea nitrogen [Mass/Vol] 16 mg/dL Normal 7-18 [facility] ([place]) Comment on above: Performed By: #### C TPCR, NGPCR1 #### [facility] [address] [place] [address] #### GBSPCR #### [place] [address] [place], [place] [address] LABORATORYOrdered By: SYSTEM SYSTEM on 02-16-2023 Albumin BCP dye [Mass/Vol] 3.7 G/dL Normal 3.5 - 5.0 G/dL AO ADM SS Albumin/Globulin [Mass ratio] 1.0 {ratio} Low 1.1 - 2.5 ratio AO ADM SS ALP [Catalytic activity/Vol] 47 U/L Normal 40 - 135 U/L AO ADM SS ALT With P-5'-P [Catalytic activity/Vol] 16 U/L Normal 14 - 59 U/L AO ADM SS AST With P-5'-P [Catalytic activity/Vol] 14 U/L Normal 10 - 40 U/L AO ADM SS Basophil, Absolute 0.1 103/mcL Normal 0.0 - 0.2 10^3/mcL AO Workflow SS Basophils/100 WBC (Bld) 0.7 % Normal 0.0 - 2.5 % AO Workflow SS Bilirubin [Mass/Vol] 0.7 mg/dL Normal 0.2 - 1 .0 mg/dL AO ADM SS Comment on above: Interpretive Data: U se of this assay is not recommended for patients undergoing treatment with eltrombopag due to the potential for falsely elevated results. Calcium [Mass/Vol] 9.6 mg/dL Normal 8.4 - 10. 2 mg/dL AO ADM SS Chloride [Moles/Vol] 102 mmol/L Normal 98 - 10 7 mmol/L AO ADM SS CO2 [Moles/Vol] 23 mmol/L Normal 22 - 29 mmol/L AO ADM SS Creatinine [Mass/Vol] 0.53 mg/dL Low 0.55 - 1.02 mg/dL AO ADM SS Electrolyte Balance 11.0 mEq/L Normal 4.0 - 15 .0 mEq/L AO ADM SS Eosinophil, Absolute 0.0 103/mcL Normal 0.0 - 0 .4 10^3/mcL AO Workflow SS Eosinophils/100 WBC (Bld) 0.4 % Normal 0.0 - 7.0 % AO Workflow SS Erythrocyte distribution width (RBC) [Ratio] 14.7 % High 11.5 - 14.5 % AO Workflow SS GFR/1.73 sq M.predicted among blacks MDRD (S/P/Bld) [Vol rate/Area] 182 ml/min/1.73sqm Invalid Interpretation Code AO Chemistry S Comment on above: Interpretive Data: GFR Population mean for , Non- Americans Ages 20-29 = 116 mL/min/1.73 sq.m. Ages 30-39 = 107 mL/min/1.73 sq.m. Ages 40-49 = 99 mL/min/1.73 sq.m. Ages 50-59 = 93 mL/min/1.73 sq.m. Ages 60-69 = 85 mL/min/1.73 sq.m. Ages 70+ = 75 mL/min/1.73 sq.m. Chronic Kidney Disease: Less than 60 mL/min/1.73 square meters End Stage Renal Disease: Less than 15 mL/min/1.73 square meters GFR/1.73 sq M.predicted among non-blacks MDRD (S/P/Bld) [Vol rate/Area] 150 ml/min/1.73sqm Invalid Interpretation Code AO Chemistry S Comment on above: Interpretive Data: GFR Population mean for , Non- Americans Ages 20-29 = 116 mL/min/1.73 sq.m. Ages 30-39 = 107 mL/min/1.73 sq.m. Ages 40-49 = 99 mL/min/1.73 sq.m. Ages 50-59 = 93 mL/min/1.73 sq.m. Ages 60-69 = 85 mL/min/1.73 sq.m. Ages 70+ = 75 mL/min/1.73 sq.m. Chronic Kidney Disease: Less than 60 mL/min/1.73 square meters End Stage Renal Disease: Less than 15 mL/min/1.73 square meters Globulin 3.8 G/dL Invalid Interpretation Code AO ADM SS Glucose [Mass/Vol] 90 mg/dL Normal 70 - 105 mg/dL AO ADM SS Hematocrit (Bld) [Volume fraction] 37.5 % Normal 37.0 - 47.0 % AO Workflow SS Hemoglobin (Bld) [Mass/Vol] 12.7 G/dL Normal 12.0 - 16.0 G/dL AO Workflow SS Lipase [Catalytic activity/Vol] 52 U/L Normal 16 - 77 U/L AO ADM SS Lymphocyte, Absolute 1.9 103/mcL Normal 0.8 - 3 .9 10^3/mcL AO Workflow SS Lymphocytes/100 WBC (Bld) 19.7 % Normal 10.0 - 50.0 % AO Workflow SS MCH (RBC) [Entitic mass] 29.5 pg Normal 27.0 - 31.2 pg AO Workflow SS MCHC 34.0 G/dL Normal 33.0 - 37.0 G/dL AO Workflow SS MCV (RBC) [Entitic vol] 87.0 fL Normal 80.0 - 94.0 fL AO Workflow SS Monocyte distribution width Auto (Bld) [Entitic vol] 16.52 1 Normal 0.00 - 20.00 AO Workflow SS Comment on above: Result Comment: For ED adult patients suspected of sepsis, MDW<=20.0 does not rule out sepsis or risk of sepsis Monocyte, Absolute 0.7 103/mcL Normal 0.2 - 1.0 10^3/mcL AO Workflow SS Monocytes/100 WBC (Bld) 7.0 % Normal 1.7 - 13.0 % AO Workflow SS Neutrophil, Absolute 7.0 103/mcL High 2.9 - 6 .2 10^3/mcL AO Workflow SS Neutrophils/100 WBC (Bld) 72.2 % Normal 37.0 - 80.0 % AO Workflow SS Platelet mean volume (Bld) [Entitic vol] 6.9 fL Low 7.4 - 10.4 fL AO Workflow SS Platelets (Bld) [#/Vol] 277 103/mcL Normal 130 - 400 10^3/mcL AO Workflow SS Potassium [Moles/Vol] 3.7 mmol/L Normal 3.5 - 5.1 mmol/L AO ADM SS Protein [Mass/Vol] 7.5 G/dL Normal 6.4 - 8.2 G/dL AO ADM SS RBC (Bld) [#/Vol] 4.31 106/mcL Normal 4.20 - 5.4 0 10^6/mcL AO Workflow SS Sodium [Moles/Vol] 136 mmol/L Normal 136 - 145 mmol/L AO ADM SS Urea nitrogen [Mass/Vol] 16 mg/dL Normal 7 - 18 mg/dL AO ADM SS Urea nitrogen/Creatinine [Mass ratio] 30 ratio High 7 - 27 ratio AO ADM SS WBC (Bld) [#/Vol] 9.7 103/mcL Normal 4.6 - 10.8 10^3/mcL AO Workflow SS LABORATORYOrdered By: Brian Mcgowan on 02-16-2023 Appearance (U) Cloudy *ABN* (02/16/23 9:36 PM) Invalid Interpretation Code Clear AO Auto Urine SS Bacteria LM.HPF (Urine sed) [#/Area] 1 /[HPF] Invalid Interpretation Code AO Auto Urine SS Bilirubin Ql (U) Negative (02/16/23 9:36 PM) Normal Negative AO Auto Urine SS Color (U) Yellow (02/16/23 9:36 PM) Normal AO Auto Urine SS Crystals.amorphous LM.HPF (Urine sed) [#/Area] 2 /[HPF] Normal AO Auto Urine SS Glucose Test strip (U) [Mass/Vol] Negative Normal Negative AO Auto Urine SS Hemoglobin Auto test strip (U) [Mass/Vol] Negative (02/16/23 9:36 PM) Normal Negative AO Auto Urine SS Ketones Ql (U) Negative Normal Negative AO Auto Urine SS UA Leuk Est Trace *ABN* (02/16/23 9:36 PM) Invalid Interpretation Code Negative AO Auto Urine SS UA Nitrite Negative (02/16/23 9:36 PM) Normal Negative AO Auto Urine SS UA pH 7.5 (02/16/23 9:36 PM) Normal 5.0 - 8.0 AO Auto Urine SS UA Protein Negative Normal Negative AO Auto Urine SS UA RBC 0-5 /HPF Invalid Interpretation Code None Seen AO Auto Urine SS UA Spec Grav 1.020 (02/16/23 9:36 PM) Normal 1.015-1.025 AO Auto Urine SS UA Specimen Type Clean Catch (02/16/23 9:36 PM) Normal AO Auto Urine SS UA Squam Epithelial 0-5 /HPF Invalid Interpretation Code None Seen AO Auto Urine SS UA Urobilinogen 0.2 E.U./dL Normal 0.2-1.0 AO Auto Urine SS WBC LM.HPF (Urine sed) [#/Area] 0-5 /HPF Invalid Interpretation Code None Seen AO Auto Urine SS LIPon 02-16-2023 Lipase Level 52 U/L Normal 16-77 [facility] ([place]) Comment on above: Performed By: #### C TPCR, NGPCR1 #### [place] [address] #### GBSPCR #### [address] [address] UAon 02-16-2023 Color (U) Yellow Normal [facility] ([place]) Comment on above: Performed By: #### C TPCR, NGPCR1 #### [place] [address] #### GBSPCR #### [address] [address] Glucose (U) [Mass/Vol] Negative Normal Negative [facility] ([place]) Comment on above: Performed By: #### C TPCR, NGPCR1 #### [place] [address] #### GBSPCR #### [address] [address] Ketones Ql (U) Negative Normal Negative [facility] ([place]) Comment on above: Performed By: #### C TPCR, NGPCR1 #### [place] [address] #### GBSPCR #### [address] [address] UA Appear Cloudy Abnormal Clear [facility] ([place]) Comment on above: Performed By: #### C TPCR, NGPCR1 #### [place] [address] #### GBSPCR #### [address] [address] UA Blood Negative Normal Negative [facility] ([place]) Comment on above: Performed By: #### C TPCR, NGPCR1 #### [place] [address] #### GBSPCR #### [address] [address] UA Leuk Est Trace Abnormal Negative [facility] ([place]) Comment on above: Performed By: #### C TPCR, NGPCR1 #### [place] [address] #### GBSPCR #### [address] [address] UA Nitrite Negative Normal Negative [facility] ([place]) Comment on above: Performed By: #### C TPCR, NGPCR1 #### [place] [address] #### GBSPCR #### [address] [address] UA pH 7.5 Normal 5.0 - 8.0 [facility] ([place]) Comment on above: Performed By: #### C TPCR, NGPCR1 #### [place] [address] #### GBSPCR #### [address] [address] UA Protein Negative Normal Negative [facility] ([place]) Comment on above: Performed By: #### C TPCR, NGPCR1 #### [place] [address] #### GBSPCR #### [address] [address] UA Spec Grav 1.020 Normal 1.015-1.025 [facility] ([place]) Comment on above: Performed By: #### C TPCR, NGPCR1 #### [place] [address] #### GBSPCR #### [address] [address] UA Specimen Type Clean Catch Normal [facility] ([place]) Comment on above: Performed By: #### C TPCR, NGPCR1 #### [place] [address] #### GBSPCR #### [address] [address] UA Urobilinogen 0.2 E.U./dL Normal 0.2-1.0 [facility] ([place]) Comment on above: Performed By: #### C TPCR, NGPCR1 #### [address] [address] #### GBSPCR #### [address] [address] Urobilinogen (U) [Mass/Vol] Negative Normal Negative [facility] ([place]) Comment on above: Performed By: #### C TPCR, NGPCR1 #### [address] [address] #### GBSPCR #### [address] [address] CTPCRon 01-04-2023 C. trachomatis Interp Normal See CT Interp N [facility] ([place]) Comment on above: Result Comment: C. t rachomatis DNA not detected. Specimen is presumptive negative for C. trachomatis. A negative result does not preclude C. trachomatis infection because results depend on adequate specimen collection, absence of inhibitors, and sufficient DNA to be detected. See CT Interp N Performed By: #### U A, PREGU, UAMICAO #### [address] [address] C.trachomatis PCR Negative Normal Negative [facility] ([place]) Comment on above: Result Comment: Jean jangar (PCR) assay performed on the Donnell Jo 4800 system. Performed By: #### U A, PREGU, UAMICAO #### [address] [address] Chlam Source Cervix Normal [facility] ([place]) Comment on above: Performed By: #### U A, PREGU, UAMICAO #### [address] [address] [id number] 01-04-2023 GC PCR Source Cervix Normal [facility] ([place]) Comment on above: Performed By: #### N GPCR1 #### [address] [address] N. gonorrhoeae (PCR) Negative Normal Negative [facility] ([place]) Comment on above: Result Comment: Mole cular (PCR) assay performed on the Don[employer] Jo 4800 System. Performed By: #### N GPCR1 #### [address] [address] N. gonorrhoeae Interp Normal Aul [facility] ([place]) Comment on above: Result Comment: N. g onorrhoeae DNA not detected. Specimen is presumptive negative for N. gonorrhoeae. A negative result does not preclude Neisseria gonorrhoeae infection because results depend on adequate specimen collection, absence of inhibitors, and sufficient DNA to be detected. See NG Interp N Performed By: #### N GPCR1 #### [address] [address] LABORATORYOrdered By: Kavya Butcher on 01-03-2023 N. gonorrhoeae DNA BK+probe Ql (Unsp spec) Negative 1 (01/03/23 4:01 PM) Invalid Interpretation Code Negative Auto Viro/Sero SS Comment on above: Interpretive Data: M olecular (PCR) assay performed on the Donnell Jo 4800 System. N. gonorrhoeae DNA BK+probe Ql (Unsp spec) N. gonorrhoeae DNA not detected. Specimen is presumptive negative forN. gonorrhoeae. A negative result does not preclude Neisseria gonorrhoeaeinfection because results depend on adequate specimen collection, absenceof inhibitors, and sufficient DNA to be detected. Invalid Interpretation Code AH Auto Viro/Sero SS Specimen source Nom (Unsp spec) Cervix (01/03/23 4:01 PM) Invalid Interpretation Code AH Auto Viro/Sero SS C. trachomatis DNA BK+probe Ql (Unsp spec) Negative 2 (01/03/23 4:00 PM) Invalid Interpretation Code Negative Auto Viro/Sero SS Comment on above: Interpretive Data: M olecular (PCR) assay performed on the Donnell Jo 4800 system. C. trachomatis DNA BK+probe Ql (Unsp spec) C. trachomatis DNA not detected. Specimen is presumptive negative forC. trachomatis.A negative result does not preclude C. trachomatis infection becauseresults depend on adequate specimen collection, absence of inhibitors,and sufficient DNA to be detected. Invalid Interpretation Code See CT Interp N AH Auto Viro/Sero SS Specimen source Nom (Unsp spec) Cervix (01/03/23 4:00 PM) Invalid Interpretation Code AH Auto Viro/Sero SS No Panel Informationon 01-03 Culture Urine 10,000 - 50,000 cfu/ ml Mixed growth consistent with normal urogenital slade. [facility] Work Phone: LABORATORYOrdered By: Cinthya Young on 04-17-2022 Basophil, Absolute 0.1 103/mcL Invalid Interpretation Code 0.0 - 0.2 10^3/mcL AO Workflow SS Basophils/100 WBC (Bld) 1.1 % Invalid Interpretation Code 0.0 - 2.5 % AO Workflow SS Eosinophil, Absolute 0.1 103/mcL Invalid Interpretation Code 0.0 - 0.4 10^3/mcL AO Workflow SS Eosinophils/100 WBC (Bld) 1.2 % Invalid Interpretation Code 0.0 - 7.0 % AO Workflow SS Erythrocyte distribution width (RBC) [Ratio] 14.3 % Invalid Interpretation Code 11.5 - 14.5 % AO Workflow SS Hematocrit (Bld) [Volume fraction] 39.1 % Invalid Interpretation Code 37.0 - 47.0 % AO Workflow SS Hemoglobin (Bld) [Mass/Vol] 12.9 G/dL Invalid Interpretation Code 12.0 - 16.0 G/dL AO Workflow SS Lymphocyte, Absolute 2.2 103/mcL Invalid Interpretation Code 0.8 - 3.9 10^3/mcL AO Workflow SS Lymphocytes/100 WBC (Bld) 36.8 % Invalid Interpretation Code 10.0 - 50.0 % AO Workflow SS MCH (RBC) [Entitic mass] 28.6 pg Invalid Interpretation Code 27.0 - 31.2 pg AO Workflow SS MCHC 32.9 G/dL Invalid Interpretation Code 33.0 - 37.0 G/dL AO Workflow SS MCV (RBC) [Entitic vol] 87.1 fL Invalid Interpretation Code 80.0 - 94.0 fL AO Workflow SS Monocyte, Absolute 0.5 103/mcL Invalid Interpretation Code 0.2 - 1.0 10^3/mcL AO Workflow SS Monocytes/100 WBC (Bld) 8.6 % Invalid Interpretation Code 1.7 - 13.0 % AO Workflow SS Neutrophil, Absolute 3.2 103/mcL Invalid Interpretation Code 2.9 - 6.2 10^3/mcL AO Workflow SS Neutrophils/100 WBC (Bld) 52.3 % Invalid Interpretation Code 37.0 - 80.0 % AO Workflow SS Platelet mean volume (Bld) [Entitic vol] 8.1 fL Invalid Interpretation Code 7.4 - 10.4 fL AO Workflow SS Platelets (Bld) [#/Vol] 271 103/mcL Invalid Interpretation Code 130 - 400 10^3/mcL AO Workflow SS RBC (Bld) [#/Vol] 4.49 106/mcL Invalid Interpretation Code 4.20 - 5.40 10^6/mcL AO Workflow SS WBC (Bld) [#/Vol] 6.1 103/mcL Invalid Interpretation Code 4.6 - 10.8 10^3/mcL AO Workflow SS LABORATORYOrdered By: [employer] SYSTEM on 04-17-2022 Calcium [Mass/Vol] 9.0 mg/dL Invalid Interpretation Code 8.4 - 10.2 mg/dL AO ADM SS Chloride [Moles/Vol] 103 mmol/L Invalid Interpretation Code 98 - 107 mmol/L AO ADM SS CO2 [Moles/Vol] 28 mmol/L Invalid Interpretation Code 22 - 29 mmol/L AO ADM SS Creatinine [Mass/Vol] 0.75 mg/dL Invalid Interpretation Code 0.55 - 1.02 mg/dL AO ADM SS Electrolyte Balance 9.0 mEq/L Invalid Interpretation Code 4.0 - 15.0 mEq/L AO ADM SS Glucose [Mass/Vol] 89 mg/dL Invalid Interpretation Code 70 - 105 mg/dL AO ADM SS Potassium [Moles/Vol] 3.7 mmol/L Invalid Interpretation Code 3.5 - 5.1 mmol/L AO ADM SS Sodium [Moles/Vol] 140 mmol/L Invalid Interpretation Code 136 - 145 mmol/L AO ADM SS Urea nitrogen [Mass/Vol] 9 mg/dL Invalid Interpretation Code 7 - 18 mg/dL AO ADM SS Urea nitrogen/Creatinine [Mass ratio] 12 ratio Invalid Interpretation Code 7 - 27 ratio AO ADM SS Vit. D 25-Hydroxy 16.7 ng/mL Invalid Interpretation Code AO ADM SS LABORATORYOrdered By: Cheryl Blue on 10-03-2021 Appearance (U) Clear (10/03/21 1:06 AM) Invalid Interpretation Code Clear AO Auto Urine SS Bilirubin Ql (U) Negative (10/03/21 1:06 AM) Invalid Interpretation Code Negative AO Auto Urine SS Color (U) Yellow (10/03/21 1:06 AM) Invalid Interpretation Code AO Auto Urine SS Glucose Test strip (U) [Mass/Vol] Negative Invalid Interpretation Code Negativemg/d L AO Auto Urine SS HCG ( test) Ql Negative (10/03/21 1:06 AM) Invalid Interpretation Code AO Manual Urine SS Hemoglobin Auto test strip (U) [Mass/Vol] Small *ABN* (10/03/21 1:06 AM) Invalid Interpretation Code Negative AO Auto Urine SS Ketones Ql (U) Negative Invalid Interpretation Code Negativemg/d L AO Auto Urine SS test (u) int Not detected Invalid Interpretation Code AO Manual Urine SS UA Leuk Est Negative (10/03/21 1:06 AM) Invalid Interpretation Code Negative AO Auto Urine SS UA Nitrite Negative (10/03/21 1:06 AM) Invalid Interpretation Code Negative AO Auto Urine SS UA pH 6.0 (10/03/21 1:06 AM) Invalid Interpretation Code 5.0 - 8.0 AO Auto Urine SS UA Protein Negative Invalid Interpretation Code Negativemg/d L AO Auto Urine SS UA Spec Grav >=1.030 *ABN* (10/03/21 1:06 AM) Invalid Interpretation Code 1.015-1.025 AO Auto Urine SS UA Specimen Type Clean Catch (10/03/21 1:06 AM) Invalid Interpretation Code AO Auto Urine SS UA Urobilinogen 1.0 E.U./dL Invalid Interpretation Code 0.2-1.0E.U./ dL AO Auto Urine SS LABORATORYOrdered By: Jody Lynn on 01-31-2021 Appearance (U) Slightly Cloudy *ABN* (01/31/21 2:50 AM) Invalid Interpretation Code Clear AO Auto Urine SS Bacteria LM.HPF (Urine sed) [#/Area] 2 /[HPF] Invalid Interpretation Code AO Auto Urine SS Basophil, Absolute 0.10 103/mcL Invalid Interpretation Code 0.00 - 0.19 10^3/mcL AO Auto Heme SS Basophils/100 WBC (Bld) 0.7 % Invalid Interpretation Code 0.0 - 2.5 % AO Auto Heme SS Bilirubin Ql (U) Negative (01/31/21 2:50 AM) Invalid Interpretation Code Negative AO Auto Urine SS Calcium [Mass/Vol] 9.0 mg/dL Invalid Interpretation Code 8.4 - 10.2 mg/dL AO ADM SS Chloride [Moles/Vol] 105 mmol/L Invalid Interpretation Code 98 - 107 mmol/L AO ADM SS CO2 [Moles/Vol] 22 mmol/L Invalid Interpretation Code 22 - 29 mmol/L AO ADM SS Color (U) Other *ABN* (01/31/21 2:50 AM) Invalid Interpretation Code AO Auto Urine SS Creatinine [Mass/Vol] 0.64 mg/dL Invalid Interpretation Code 0.55 - 1.02 mg/dL AO ADM SS Electrolyte Balance 16.0 mEq/L Invalid Interpretation Code AO ADM SS Eosinophil, Absolute 0.10 103/mcL Invalid Interpretation Code 0.00 - 0.40 10^3/mcL AO Auto Heme SS Eosinophils/100 WBC (Bld) 1.4 % Invalid Interpretation Code 0.0 - 7.0 % AO Auto Heme SS Erythrocyte distribution width (RBC) [Ratio] 16.3 % Invalid Interpretation Code 11.5 - 14.5 % AO Auto Heme SS Glucose [Mass/Vol] 98 mg/dL Invalid Interpretation Code 70 - 105 mg/dL AO ADM SS Glucose Test strip (U) [Mass/Vol] Negative Invalid Interpretation Code Negativemg/d L AO Auto Urine SS HCG ( test) Ql Negative (01/31/21 2:50 AM) Invalid Interpretation Code AO Manual Urine SS Hematocrit (Bld) [Volume fraction] 35.9 % Invalid Interpretation Code 37.0 - 47.0 % AO Auto Heme SS Hemoglobin (Bld) [Mass/Vol] 11.7 G/dL Invalid Interpretation Code 12.0 - 16.0 G/dL AO Auto Heme SS Hemoglobin Auto test strip (U) [Mass/Vol] Moderate *ABN* (01/31/21 2:50 AM) Invalid Interpretation Code Negative AO Auto Urine SS Ketones Ql (U) Negative Invalid Interpretation Code Negativemg/d L AO Auto Urine SS Lymphocyte, Absolute 3.60 103/mcL Invalid Interpretation Code 0.77 - 3.85 10^3/mcL AO Auto Heme SS Lymphocytes/100 WBC (Bld) 42.0 % Invalid Interpretation Code 10.0 - 50.0 % AO Auto Heme SS MCH (RBC) [Entitic mass] 26.5 pg Invalid Interpretation Code 27.0 - 31.2 pg AO Auto Heme SS MCHC (RBC) [Mass/Vol] 32.7 G/dL Invalid Interpretation Code 33.0 - 37.0 G/dL AO Auto Heme SS MCV (RBC) [Entitic vol] 81.2 fL Invalid Interpretation Code 80.0 - 94.0 fL AO Auto Heme SS Monocyte, Absolute 0.70 103/mcL Invalid Interpretation Code 0.15 - 1.00 10^3/mcL AO Auto Heme SS Monocytes/100 WBC (Bld) 8.7 % Invalid Interpretation Code 1.7 - 13.0 % AO Auto Heme SS Neutrophil, Absolute 4.10 103/mcL Invalid Interpretation Code 2.85 - 6.16 10^3/mcL AO Auto Heme SS Neutrophils/100 WBC (Bld) 47.2 % Invalid Interpretation Code 37.0 - 80.0 % AO Auto Heme SS Platelet mean volume (Bld) [Entitic vol] 7.8 fL Invalid Interpretation Code 7.4 - 10.4 fL AO Auto Heme SS Platelets (Bld) [#/Vol] 338 103/mcL Invalid Interpretation Code 130 - 400 10^3/mcL AO Auto Heme SS Potassium [Moles/Vol] 4.0 mmol/L Invalid Interpretation Code 3.5 - 5.1 mmol/L AO ADM SS test (u) int Not detected Invalid Interpretation Code AO Manual Urine SS RBC (Bld) [#/Vol] 4.42 106/mcL Invalid Interpretation Code 4.20 - 5.40 10^6/mcL AO Auto Heme SS Sodium [Moles/Vol] 143 mmol/L Invalid Interpretation Code 136 - 145 mmol/L AO ADM SS UA Leuk Est Negative (01/31/21 2:50 AM) Invalid Interpretation Code Negative AO Auto Urine SS UA Mucous 2+ /HPF Invalid Interpretation Code AO Auto Urine SS UA Nitrite Negative (01/31/21 2:50 AM) Invalid Interpretation Code Negative AO Auto Urine SS UA pH 6.0 (01/31/21 2:50 AM) Invalid Interpretation Code 5.0 - 8.0 AO Auto Urine SS UA Protein Negative Invalid Interpretation Code Negativemg/d L AO Auto Urine SS UA RBC 0-5 /HPF Invalid Interpretation Code None Seen/HPF AO Auto Urine SS UA Spec Grav 1.025 (01/31/21 2:50 AM) Invalid Interpretation Code 1.015-1.025 AO Auto Urine SS UA Specimen Type Clean Catch (01/31/21 2:50 AM) Invalid Interpretation Code AO Auto Urine SS UA Squam Epithelial 5-10 /HPF Invalid Interpretation Code None Seen/HPF AO Auto Urine SS UA Urobilinogen 0.2 E.U./dL Invalid Interpretation Code 0.2-1.0E.U./ dL AO Auto Urine SS Urea nitrogen [Mass/Vol] 12 mg/dL Invalid Interpretation Code 7 - 18 mg/dL AO ADM SS Urea nitrogen/Creatinine [Mass ratio] 19 ratio Invalid Interpretation Code 7 - 27 ratio AO ADM SS WBC (Bld) [#/Vol] 8.60 103/mcL Invalid Interpretation Code 4.60 - 10.80 10^3/mcL AO Auto Heme SS WBC LM.HPF (Urine sed) [#/Area] 0-5 /HPF Invalid Interpretation Code None Seen/HPF AO Auto Urine SS ED Provider Progress Noteon 06-28-2019 [employer] Operator Authentication Interface Message Text Marco Boston : 2005 Chief Complaint Patient presents with ? P.I.R.C. No Known Allergies DOS: 06/28/2019 Mp Andrade is a 13 yo female with a PMhx of depression, asthma, and migraines who presents today for self cutting. She was initially seen in [place] in [facility] and was sent here for further evaluation. She states that there are multiple at home stressors including her brother who was recently released from correction and was arguing with his ex , putting the patient in the middle of it. Her dad is currently encarcerated and was tested positive for COVID-19. She states that she had no plans of killing herself but wanted to relieve some of the stress by cutting herself with a safety-pin to both arms. She reports that she did have suicidal thoughts in the past but never had a plan. There are no weapons available to her at home. She states she feels somewhat safe at home. She does see a school counselor for depression. She reports depression symptoms for the past 5 years but was never placed on medication for this. She denies any recent illness, medication changes, cigarette, alcohol, or illicit drug use. She is not sexually active. Her LMP was some time last month. She reports no MANZANO, vision changes, chest pain, sob, abd pain, n/v, diarrhea, constipation, fevers or chills. She does admit to visual hallucinations including shadows. Denies auditory or tactile hallucinations. There are no pending legal actions against her. Mom has full custody. Review of Systems Constitutional: Positive for fatigue. Negative for activity change, appetite change, chills and fever. HENT: Negative for congestion, ear discharge, ear pain, nosebleeds and rhinorrhea. Eyes: Negative for pain, discharge and itching. Respiratory: Negative for cough, chest tightness, shortness of breath and wheezing. Cardiovascular: Negative for chest pain and palpitations. Gastrointestinal: Negative for abdominal distention, abdominal pain, constipation, diarrhea, nausea and vomiting. Endocrine: Negative for polyuria. Genitourinary: Negative for difficulty urinating, dysuria, flank pain, frequency, hematuria, vaginal bleeding and vaginal discharge. Musculoskeletal: Negative for back pain, gait problem, joint swelling, myalgias and neck pain. Skin: Positive for wound (cutting to both forearms). Negative for rash. Neurological: Negative for dizziness, seizures, syncope, light-headedness and headaches. Psychiatric/Behavioral: Positive for decreased concentration, hallucinations (visual. shadows), self-injury (cutting to both forearms) and sleep disturbance (insomnia). Negative for confusion and suicidal ideas (history of SI with no plan). Past Medical History: Diagnosis Date ? Asthma allergy based ? Other abnormal clinical finding ? Seasonal allergies Past Surgical History: Procedure Laterality Date ? ENT SURGERY ? FOREARM CLOSED REDUCTION Left 10/07/2014 Closed reduction left distal ulna fracture performed by Tarik Abraham MD at [facility] OR ? TONSILLECTOMY september 2011 ? TONSILLECTOMY AND ADENOIDECTOMY Pediatric History Patient Parents/Guardians ? Lorie Boston (Mother/Guardian) Other Topics Concern ? Interpersonal relationships Not Asked ? Poor school performance Not Asked ? Reading difficulties Not Asked ? Speech difficulties Not Asked ? Writing difficulties Not Asked ? Toilet training problems Not Asked ? Inadequate sleep Not Asked ? Excessive TV viewing Not Asked ? Excessive video game use Not Asked ? Inadequate exercise Not Asked ? Sports related Not Asked ? Poor diet Not Asked ? Second-hand smoke exposure Not Asked ? Alcohol/drug concerns Not Asked ? Violence concerns Not Asked ? Poor oral hygiene Not Asked ? Bike safety Not Asked ? Vehicle safety Not Asked Social History Narrative ? Not on file ED Triage Vitals Date and Time Temp Temp src Pulse Resp BP SpO2 Weight User 06/28/19 0721 36.5 C (97.7 F) Temporal 98 18 98/58 100 % 42.9 kg TUAN Physical Exam Constitutional: General: She is not in acute distress. Appearance: Normal appearance. She is normal weight. She is not ill-appearing or toxic-appearing. HENT: Head: Normocephalic and atraumatic. Ears: Comments: Normal [place] Nose: Nose normal. No congestion or rhinorrhea. Mouth/Throat: Mouth: Mucous membranes are moist. Pharynx: No oropharyngeal exudate or posterior oropharyngeal erythema. Oropharynx is clear. Eyes: General: Right eye: No discharge. Left eye: No discharge. Extraocular Movements: Extraocular movements intact. Conjunctiva/sclera: Conjunctivae normal. Pupils: Pupils are equal, round, and reactive to light. Neck: Musculoskeletal: Normal range of motion and neck supple. No neck rigidity or muscular tenderness. Cardiovascular: Rate and Rhythm: Normal rate and regular rhythm. Pulses: Normal pulses. Heart sounds: Normal heart sounds. No murmur. Pulmonary: Effort: Pulmonary effort is normal. No respiratory distress. Breath sounds: Normal breath sounds. Abdominal: General: Abdomen is flat. Bowel sounds are normal. Palpations: Abdomen is soft. There is no mass. Tenderness: There is no guarding. Musculoskeletal: General: No swelling, deformity or signs of injury. Skin: General: Skin is warm. Capillary Refill: Capillary refill takes less than 2 seconds. Findings: Wound (superficial, multiple cuts to anterior forearms bilaterally) present. Neurological: General: No focal deficit present. Mental Status: She is alert and oriented to person, place, and time. Mental status is at baseline. Cranial Nerves: No cranial nerve deficit. Sensory: No sensory deficit. Motor: No weakness. Coordination: Coordination normal. Gait: Gait normal. Deep Tendon Reflexes: Reflexes normal. Psychiatric: Thought Content: Thought content normal. Judgment: Judgment normal. Comments: Increase in sleep, loss of interest, no guilt, no change in energy, decreased concentration, no change in appetite, positive psychomotor agitation, no SI Procedures MDM Number of Diagnoses or Management Options Diagnosis management comments: Marco Boston is a 13 yo cuacasian female with a pmhx of unmedicated depression, asthma and migraines who presents today for self harm. She cut herself with a safetypin to both forearms. She denies wanting to kill herself. She has a past history of suicidal thoughts but had no active plan at that time. She is seeing a school counselor. Workup from [place] in [facility] was negative including CBC, HCG, ECG was NSR, and Tox screen negative. No further metabolic workup here at this time. Will await counselor recommendations. After evaluation with psychiatric counselor, no recommendations for admission. Denies active SI. Will be discharged with safety plan. ED Course: Diagnosis' considered: Labs/Radiology: Consults: No orders of the defined types were placed in this encounter. Medical Record/Transferring Institution Record: Treatment/Reassessment: Encounter Documentation/Handoff: Final Clinical Impression/Diagnosis as of Jun 27 937 Nonpsychotic mental disorder I have discussed the chief complaint and relevant history with the resident and performed a brief medical screening exam relevant to patient's complaints. Full interview for psychiatric history and present illness deferred to [facility] staff member. Decision regarding this patient's disposition was made by the team of myself, the resident, and the [facility] worker and was discussed with the patient and family. Questions were answered and follow-up instructions were given including specific resources for the patient and family as deemed helpful by [facility] team. Any discrepancies found on my interview or exam from the note above is listed in a separate addendum, otherwise I am in agreement with the resident's documentation. Stephanie Nassar, DO Normal [facility] Comp Metabolic Panelon 03-27 Albumin [Mass/Vol] 4.7 g/dL High 3.2-4.5 [facility] Comment on above: Performed By: #### D RGT #### [address] [address] ALP [Catalytic activity/Vol] 61 U/L Normal 55-240 [facility] Comment on above: Performed By: #### D RGT #### [address] [address] ALT [Catalytic activity/Vol] 11 U/L Normal 0-31 [facility] Comment on above: Performed By: #### D RGT #### [address] [address] AST [Catalytic activity/Vol] 18 U/L Normal 0-31 [facility] Comment on above: Performed By: #### D RGT #### [address] [address] Bili,Total 0.6 mg/dl Normal 0.0-1.0 [facility] Comment on above: Result Comment: Premature : 1 Day 1.0-6.0 mg/dl 2 Day 6.0-8.0 mg/dl 3-5 Day 10.0-15.0 mg/dl Performed By: #### D RGT #### [place] [address] Calcium [Mass/Vol] 9.5 mg/dL Normal 7.6-11.0 [facility] Comment on above: Performed By: #### D RGT #### [address] [address] Chloride [Moles/Vol] 107 mmol/L Normal 96-108 [facility] Comment on above: Performed By: #### D RGT #### [address] [address] CO2 [Moles/Vol] 27.0 mmol/L Normal 22.0-29.0 [facility] Comment on above: Performed By: #### D RGT #### [address] [address] Creatinine [Mass/Vol] 0.66 mg/dL Normal 0.50-0.80 [facility] Comment on above: Result Comment: Premature 0.3-1.0 mg/dL Performed By: #### D RGT #### [address] [address] Glucose [Mass/Vol] 94 mg/dL Normal 70-99 [facility] Comment on above: Result Comment: Criteria for Diagnosis of Diabetes(Effective 08/08/10): Fasting specimen (no caloric intake for at least 8 hours). <100 mg/dl Normal 100-125 mg/dl Increased Risk for Diabetes >125 mg/dl Diagnostic for Diabetes Random Glucose (any time of day without regard to last meal). >=200 mg/dl plus Classic Symptoms of Diabetes Performed By: #### D RGT #### [address] [address] Potassium [Moles/Vol] 4.2 mmol/L Normal 3.3-5.1 [facility] Comment on above: Performed By: #### D RGT #### [place] [address] Protein [Mass/Vol] 7.7 g/dL Normal 6.0-8.0 [facility] Comment on above: Performed By: #### D RGT #### [address] [address] Sodium [Moles/Vol] 140 mmol/L Normal 133-145 [facility] Comment on above: Performed By: #### D RGT #### [place] [address] Urea nitrogen [Mass/Vol] 14 mg/dL Normal 4-19 [facility] Comment on above: Performed By: #### D RGT #### [address] [address] Complete Blood Counton 03-27 Differential Complete Automated Normal [facility] Comment on above: Performed By: #### D RGT #### [address] [address] Basophils/100 WBC (Bld) 1.00 % Normal 0.00-1.00 [facility] Comment on above: Performed By: #### D RGT #### [address] [address] Eosinophils/100 WBC (Bld) 1.90 % Normal 0.00-3.00 [facility] Comment on above: Performed By: #### D RGT #### [address] [place] [address] Erythrocyte distribution width (RBC) [Ratio] 17.3 % High 0.0-14.4 [facility] Comment on above: Performed By: #### D RGT #### [address] [id number] Hematocrit (Bld) [Volume fraction] 38.8 % Normal 37.0-46.0 [facility] Comment on above: Performed By: #### D RGT #### [address] [address] Hemoglobin (Bld) [Mass/Vol] 12.4 g/dL Normal 12.0-15.0 [facility] Comment on above: Performed By: #### D RGT #### [address] [address] Immature granulocytes/100 WBC (Bld) 0.10 % Normal [facility] Comment on above: Result Comment: Lisa ture Granulocyte Percent includes promyelocytes, myelocytes, and metamyelocytes. IG% > 1.0 indicates a left shift is present. With automated differentials, bands are included in the neutrophil count and not in the Immature Granulocyte Percent. Performed By: #### D RGT #### [address] [address] Lymphocytes/100 WBC (Bld) 43.6 % Normal 25.0-45.0 [facility] Comment on above: Performed By: #### D RGT #### [address] [address] MCH (RBC) [Entitic mass] 26.4 pg Normal 25.0-35.0 [facility] Comment on above: Performed By: #### D RGT #### [address] [address] MCHC (RBC) [Mass/Vol] 32.0 % Normal 31.0-37.0 [facility] Comment on above: Performed By: #### D RGT #### [address] [address] MCV (RBC) [Entitic vol] 82.7 fL Normal 78.0-96.0 [facility] Comment on above: Performed By: #### D RGT #### [address] [address] Monocytes/100 WBC (Bld) 8.90 % High 3.00-6.00 [facility] Comment on above: Performed By: #### D RGT #### [address] [address] Neutrophils (Bld) [#/Vol] 3.5 10*3/uL Normal [facility] Comment on above: Performed By: #### D RGT #### [address] [address] Neutrophils/100 WBC (Bld) 44.5 % Normal 34.0-64.0 [facility] Comment on above: Performed By: #### D RGT #### [address] [address] Nucleated RBC/100 WBC (Bld) [Ratio] 0.0 % Normal -1.0-0.0 [facility] Comment on above: Performed By: #### D RGT #### [address] [address] Platelet mean volume (Bld) [Entitic vol] 9.5 fL Normal [facility] Comment on above: Result Comment: MPV is platelet range and age dependent Performed By: #### D RGT #### [address] [address] Platelets (Bld) [#/Vol] 267 10*3/uL Normal 150-450 [facility] Comment on above: Performed By: #### D RGT #### [facility] [address] [place] [address] RBC (Bld) [#/Vol] 4.69 10E12/L Normal 4.10-4.80 [facility] Comment on above: Performed By: #### D RGT #### [facility] [address] [place] [address] WBC (Bld) [#/Vol] 7.8 10*3/uL Normal 4.5-13.0 [facility] Comment on above: Performed By: #### D RGT #### [address] [address] ED Provider Progress Noteon 03-27-2019 [employer] Operator Authentication Interface Message Text Marcogabe Boston : 2005 Chief Complaint Patient presents with Female Problem Chest Pain No Known Allergies DOS: 03/27/2019 13 y/o female presents with abnormal vaginal bleeding. States Depot shot started in January to regulate period. Bleeding since then, chest pain, rib pain, weak tired, mild headaches, Fe BID for few weeks but none in one week. Hx of asthma. Dr Ornelas and adolescent medicine with appt on , cold intolerance. Borderline DM Review of Systems Constitutional: Negative for chills and fever. HENT: Negative for ear pain, sinus pressure, sinus pain and sore throat. Eyes: Negative for visual disturbance. Respiratory: Negative for cough and shortness of breath. Cardiovascular: Positive for chest pain. Negative for palpitations. Gastrointestinal: Negative for abdominal pain, blood in stool, constipation, diarrhea, nausea and vomiting. Genitourinary: Positive for menstrual problem and vaginal bleeding. Negative for dysuria, flank pain, hematuria, vaginal discharge and vaginal pain. Musculoskeletal: Negative for neck pain and neck stiffness. Skin: Positive for pallor. Negative for color change, rash and wound. Neurological: Positive for weakness and headaches. Negative for dizziness and light-headedness. Hematological: Negative for adenopathy. Does not bruise/bleed easily. All other systems reviewed and are negative. Past Medical History: Diagnosis Date Asthma allergy based Other abnormal clinical finding Seasonal allergies Past Surgical History: Procedure Laterality Date ENT SURGERY FOREARM CLOSED REDUCTION Left 10/07/2014 Closed reduction left distal ulna fracture performed by Tarik Abraham MD at [facility] OR TONSILLECTOMY september 2011 TONSILLECTOMY AND ADENOIDECTOMY Pediatric History Patient Guardians Lorie Boston (Mother) Patient does not qualify to have social determinant information on file (likely too young). Other Topics Concern Interpersonal relationships Not Asked Poor school performance Not Asked Reading difficulties Not Asked Speech difficulties Not Asked Writing difficulties Not Asked Toilet training problems Not Asked Inadequate sleep Not Asked Excessive TV viewing Not Asked Excessive video game use Not Asked Inadequate exercise Not Asked Sports related Not Asked Poor diet Not Asked Second-hand smoke exposure Not Asked Alcohol/drug concerns Not Asked Violence concerns Not Asked Poor oral hygiene Not Asked Bike safety Not Asked Vehicle safety Not Asked Social History Narrative Not on file ED Triage Vitals Date and Time Temp Temp src Pulse Resp BP SpO2 Weight User 03/27/19 0116 36.4 C (97.5 F) Temporal 84 16 105/68 98 % 44 kg LRR Physical Exam Vitals signs and nursing note reviewed. Constitutional: General: She is not in acute distress. Appearance: She is well-developed and normal weight. She is not ill-appearing, toxic-appearing or diaphoretic. HENT: Head: Normocephalic and atraumatic. Right Ear: External ear normal. Left Ear: External ear normal. Nose: Nose normal. Mouth/Throat: Mouth: Mucous membranes are moist. Pharynx: Oropharynx is clear. Eyes: Extraocular Movements: Extraocular movements intact. Conjunctiva/sclera: Conjunctivae normal. Pupils: Pupils are equal, round, and reactive to light. Neck: Musculoskeletal: Normal range of motion and neck supple. Cardiovascular: Rate and Rhythm: Normal rate and regular rhythm. Pulses: Normal pulses. Carotid pulses are 2+ on the right side and 2+ on the left side. Radial pulses are 2+ on the right side and 2+ on the left side. Dorsalis pedis pulses are 2+ on the right side and 2+ on the left side. Posterior tibial pulses are 2+ on the right side and 2+ on the left side. Heart sounds: Normal heart sounds. No murmur. No gallop. Pulmonary: Effort: Pulmonary effort is normal. Breath sounds: Normal breath sounds. No decreased breath sounds, wheezing, rhonchi or rales. There is no cough present. Chest: Chest wall: No deformity, tenderness or crepitus. Abdominal: General: Bowel sounds are normal. Palpations: Abdomen is soft. Tenderness: There is no tenderness. There is no guarding. Musculoskeletal: Normal range of motion. General: No signs of injury. Right lower leg: No edema. Left lower leg: No edema. Skin: General: Skin is warm and dry. Capillary Refill: Capillary refill takes less than 2 seconds. Coloration: Skin is pale. Neurological: General: No focal deficit present. Mental Status: She is alert and oriented to person, place, and time. Procedures MDM Number of Diagnoses or Management Options Abnormal bleeding in menstrual cycle: Diagnosis management comments: 13 y/o female presents with intermediate manager AUB. She is supposed to be seen by her PCP in a few days but came here for evaluation due to weakness. Concern for ectopic , severe anemia, bleeding disorders or electrolyte abnormalities. Vtals WNL ROS and PE as above. Labs acquired to assess for anemia or electrolyte abnormalities w/o findings of significance. Does not complain of chest or rib pain currently and has not endorsed neck pain with movement. Neg test. On reassessment, she states feeling better after IVF and will be given instructions to follow up with her PCP. All findings were explained to all available caretakers and the patient in simple to understand language. All questions were answered. Caretakers understand the plan and the return precautions and agree with both. Discharged home in stable condition with follow up listed in discharge paperwork. ED Course: Diagnosis' considered: Labs/Radiology: Consults: No orders of the defined types were placed in this encounter. Medical Record/Transferring Institution Record: Treatment/Reassessment: Encounter Documentation/Handoff: Final Clinical Impression/Diagnosis as of Mar 27 701 Abnormal bleeding in menstrual cycle I personally performed lopez portions of the history and physical examination of this patient and discussed the management plan with the resident. I reviewed the resident's note. The findings and the plan of care are set forth above. 13 yo female presenting with abnormal vaginal bleeding. Patient was placed on Depo in January to regulate bleeding and has had vaginal bleeding, intermittent chest and rib pain since then along with feeling weak. Patient has been otherwise well. Has not seen adolescent medicine since this has been going on. Patient has appointment next week. Upon arrival vitals normal for age. Lungs ctab, heart rrr, abd soft nt/nd. HCG negative. Patient without anemia. CMP normal. Reassurance provided, follow up with adolescent medicine as scheduled. Benjamín Mckenna MD 2:16 PM 03/28/2019 Normal [facility] eGFRon 03-27-2019 GFR/1.73 sq M.predicted MDRD (S/P/Bld) [Vol rate/Area] see below Normal [facility] Comment on above: Result Comment: Refe rence range: > 3 months: >90 ml/min/1.73m^2 Ref. Range change effective 05/28/2017 Unable to calculate EGFR; height not available. Performed By: #### D RGT #### [address] [address] C Peptideon 01-14-2019 C Peptide 2.6 ng/mL Normal 1.1 - 4.4 [facility] Comment on above: Result Comment: Test Performed by: [address] [place] [address] Shirt Turner: Gio Rai M.D. Ph.D.; CLIA# [id number] Performed By: #### D RGT #### [address] [id number] Glucoseon 01-13-2019 Glucose [Mass/Vol] 97 mg/dL Normal 70-99 [facility] Comment on above: Result Comment: Criteria for Diagnosis of Diabetes(Effective 08/08/10): Fasting specimen (no caloric intake for at least 8 hours). <100 mg/dl Normal 100-125 mg/dl Increased Risk for Diabetes >125 mg/dl Diagnostic for Diabetes Random Glucose (any time of day without regard to last meal). >=200 mg/dl plus Classic Symptoms of Diabetes Performed By: #### D RGT #### [address] [id number] Insulinon 01-13-2019 Insulin 19 uIU/mL Normal [facility] Comment on above: Result Comment: Reference Range Post 4-12 hour Fast Male Female 0-8 years 0-13 uIU/mL 0-13 uIU/mL >8 years 0-17 uIU/mL 0-17 uIU/mL 2 hour Post Meal 7.6-26 uIU/mL 7.6-26 uIU/mL 2 hour Post Glucose 15-53 uIU/mL 15-53 uIU/mL Testing Performed By: #### D RGT #### [address] [address] Progress Noteon 01-13-2019 [employer] Operator Authentication Interface Message Text We had the pleasure of seeing your patient, Marco Boston, in consultation at your request at the [facility] Endocrine clinic for evaluation and advice regarding elevated blood glucose. Marco is a 13 y.o. 0 m.o. female who comes to the visit with her mother. HPI: Marco is a 13 y.o. 0 m.o. old female referred for evaluation of elevated blood glucose. Mother reports that blood glucose level was checked due to family history of diabetes. She also had a recent ED visit for dizziness when she was told that dizziness could have been related to her low BG level although there is no documented hypoglycemia. Random POC BG checked during the follow up visit at PCP was 130. Labs were done on 01/01/19 which again showed a random BG 113 and HbA1c 5.6%. She was referred to endocrinology for additional evaluation. Marco denies any history of polyuria or polydipsia. Baseline urinary frequency 1-2 times overnight but does not report excessive thirst overnight. No history of recent weight loss. She has had history of menorrhagia for which she was started on depot injections. Also diagnosed with iron deficiency anemia and was started on ferrous sulfate supplementation. PAST MEDICAL HISTORY: Marco was born at full term. parameters were normal Medical problems: Asthma, iron deficiency anemia Hospitalizations/Surger ies: Tonsillectomy and adenoidectomy DEVELOPMENTAL HISTORY: Appropriate for age SOCIAL HISTORY: Marco lives with mother, sibling Marco is in 7th grade. FAMILY HISTORY: Father: 5'10 (In correction)- had history of hypoglycemia during his teenage years needing treatment Mother: 5'4 Maternal aunt: GDM during one of her MGM: Type 2 DM, was on insulin and oral meds, now s/p gastric bypass Paternal grandparents- have type 2 diabetes ALLERGIES: Patient has no known allergies. CURRENT MEDICATIONS: Outpatient Medications Marked as Taking for the 01/13/19 encounter (Office Visit) with Jeanne Benoit MD Medication Sig Dispense Refill ferrous sulfate (FEOSOL) 325 (65 Fe) MG EC tablet Take 1 Tab (65 mg) by mouth 2 times daily (with meals) 60 Tab 5 fluticasone (FLOVENT HFA) 110 MCG/ACT 110 mcg inhaler Inhale 1 Puff into the lungs 2 times daily 1 Inhaler 11 Spacer/Aero-Holding Chambers (OPTICHAMBER ELENA-LG MASK) SHAWN Device Use with inhaled medication as instructed. 2 Each 0 albuterol 108 (90 Base) MCG/ACT inhaler Inhale 2 Puffs into the lungs every 4 hours as needed for Wheezing, Shortness of Breath or Cough Use with spacer. 2 Inhaler 1 albuterol 108 (90 Base) MCG/ACT inhaler Inhale 2 Puffs into the lungs every 4 hours as needed for Wheezing or Cough Use with spacer. 1 Inhaler 1 Current Facility-Administered Medications for the 01/13/19 encounter (Office Visit) with Jeanne Benoit MD Medication Dose Route Frequency Provider Last Rate Last Dose medroxyPROGESTERone (DEPO-PROVERA) injection 150 mg 150 mg Intramuscular L.A.M. Leigh Ann Thorne MD 150 mg at 01/01/19 1358 REVIEW OF SYSTEMS: Comprehensive review of systems was performed and are as mentioned in the HPI. Pertinent negatives are as below. CONSTITUTIONAL: negative for fever, weight loss, weight gain, changes in appetite or fatigue EYES: negative for change in vision ENT: negative for difficulty swallowing RESPIRATORY: negative for difficulty breathing, wheezing CARDIOVASCULAR: negative for palpitations, dizziness, chest pain GI: negative for vomiting, diarrhea or changes in bowel habits : negative for frequent urination and nocturia SKIN: negative for flushing, changes in skin temperature or texture MUSCULOSKELETAL: negative for joint pain/ swelling, muscle weakness NEURO: negative for headache, weakness, visual changes, tremors PSYCH: negative for sleep disturbances, mood changes, depression, irritability PUBERTY: Menarche at 11-12 years of age PHYSICAL EXAMINATION: Last menstrual period 12/20/2018. 23 %ile (Z= -0.74) based on CDC (Girls, 2-20 Years) [id number] data using vitals from 01/13/2019. Blood pressure percentiles are 82 % systolic and 15 % diastolic based on the October 2016 AAP Clinical Practice Guideline. Blood pressure percentile targets: 90: 120/76, 95: 124/80, 95 + 12 mmH/92. Body mass index is 17.99 kg/m . 30 %ile (Z= -0.52) based on CDC (Girls, 2-20 Years) BMI-for-age based on BMI available as of 01/13/2019. 22 %ile (Z= -0.76) based on CDC (Girls, 2-20 Years) [id number] data based on Stature recorded on 01/13/2019., Wt Readings from Last 4 Encounters: 01/13/19 43.5 kg (23 %, Z= -0.74)* 01/01/19 44.6 kg (28 %, Z= -0.58)* 12/26/18 45.2 kg (31 %, Z= -0.49)* 12/20/18 46.8 kg (39 %, Z= -0.29)* * Growth percentiles are based on CDC (Girls, 2-20 Years) data. Ht Readings from Last 4 Encounters: 01/13/19 155.5 cm (22 %, Z= -0.76)* 01/01/19 155.7 cm (24 %, Z= -0.72)* 03/27/17 152.1 cm (45 %, Z= -0.12)* 09/16/16 149.5 cm (51 %, Z= 0.03)* * Growth percentiles are based on CDC (Girls, 2-20 Years) data. BP Readings from Last 4 Encounters: 01/13/19 116/52 (82 %, Z = 0.92 / 15 %, Z = -1.03)* 01/01/19 110/65 (62 %, Z = 0.32 / 54 %, Z = 0.10)* 12/20/18 94/59 04/03/17 111/59 (73 %, Z = 0.62 / 39 %, Z = -0.27)* *BP percentiles are based on the October 2016 AAP Clinical Practice Guideline for girls General: Well developed, well nourished, no acute distress. Head: Atraumatic, normocephalic Eyes: PERRL, sclera and conjunctiva clear, EOMI Throat: Oropharnyx is clear without tonsillar inflammation or exudate, mucous membranes are moist Neck: Supple, no cervical lymphadenopathy, no thyromegaly. No acanthosis nigricans Cardiac: RRR, no murmurs Chest: symmetric. Clear to auscultation bilaterally Abdomen: Nondistended, nontender, BS+, no organomegaly noted Genitourinary: Deferred Skin: Warm, dry, no rashes noted, brisk cap refill Neurological: Alert and oriented, no focal deficits Extremities: Full ROM in all extremities LABS REVIEWED: Ref. Range 01/01/2019 14:40 Hemoglobin A1C Latest Ref Range: 0.0 - 5.6 % 5.6 HgbA1c Interpretation Latest Units: NA ----- TSH Latest Ref Range: 0.350 - 5.500 uIU/mL 0.908 Iron Latest Ref Range: 30 - 160 ug/dL 25 (L) TIBC Latest Ref Range: 228 - 428 ug/dl 574 (HH) %Saturation Latest Ref Range: 13 - 59 % 4 (L) Glucose Latest Ref Range: 70 - 99 mg/dL 113 (H) WBC Latest Ref Range: 4.5 - 13.0 10E9/L 5.9 Nucleated RBC Percent Latest Ref Range: -1.0 - 0.0 % 0.0 RBC Latest Ref Range: 4.10 - 4.80 10E12/L 4.42 Hemoglobin Latest Ref Range: 12.0 - 15.0 g/dl 10.7 (L) Hematocrit Latest Ref Range: 37.0 - 46.0 % 34.7 (L) MCV Latest Ref Range: 78.0 - 96.0 fl 78.5 MCH Latest Ref Range: 25.0 - 35.0 pg 24.2 (L) MCHC Latest Ref Range: 31.0 - 37.0 % 30.8 (L) RDW Latest Ref Range: 0.0 - 14.4 % 15.2 (H) Platelets Latest Ref Range: 150 - 450 10E9/L 346 MPV Latest Units: fl 9.6 Differential Complete Latest Units: NA Automated % Neutrophils Latest Ref Range: 34.0 - 64.0 % 43.4 % Lymphocytes Latest Ref Range: 25.0 - 45.0 % 45.6 (H) % Monocytes Latest Ref Range: 3.00 - 6.00 % 8.90 (H) % Eosinophils Latest Ref Range: 0.00 - 3.00 % 0.90 Basophils Latest Ref Range: 0.00 - 1.00 % 1.00 Neutrophil # Latest Units: 10E3/uL 2.6 % Immature Granulocyte Latest Units: % 0.20 Prothrombin Time Latest Ref Range: 8.5 - 14.0 seconds 10.9 INR Latest Ref Range: 0.7 - 1.3 NA 1.1 Activated PTT Latest Ref Range: 0.0 - 40.0 seconds 23.4 Von Willebrand Ag Latest Ref Range: 50 - 160 % 180 (H) Ristocetin Cofactor Latest Ref Range: 50 - 150 % 130 Ref. Range 12/26/2018 15:58 POCT Glucose, Blood Latest Ref Range: 60 - 110 mg/dL 130 (A) IMPRESSION: Marco is a 13 y.o. 0 m.o. old girl referred for abnormal blood glucose level. Random BG on two occasions and HbA1c are both normal. Recommend doing fasting labs as below due to family history of diabetes and relatively higher HbA1c for her BMI. Discussed with Marco and her mother about normal glucose levels, HbA1c ranges, symptoms of hypo and hyperglycemia, types of diabetes, laboratory evaluation and follow up. They voiced understanding. PLAN: Ordered fasting labs to include serum glucose, insulin and C-peptide Recommend repeating HbA1c in 6-12 months at PCP's office Follow up will be decided based on the lab results Counseling and/or coordination of care (face to face time in the office) was greater than 45 minutes which is more than 50% of the total time of 60 minutes spent on the encounter. Thank you for the opportunity to participate in the care of Marco. If you have any questions, please do not hesitate to contact our office at [phone]. Jeanne Benoit MD [facility] [address] [place] [address] [place] [id number] Normal [facility] Von Willebrand Antigenon von Willebrand Antigen 180 % High 50-160 [facility] Comment on above: Performed By: #### D RGT #### [address] [address] Hemoglobin A1con 01-02-2019 HbA1c (Bld) [Mass fraction] 5.6 % Normal 0.0-5.6 [facility] Comment on above: Performed By: #### D RGT #### [address] [address] Ristocetin Cofactoron 2018 Ristocetin Cofactor 130 % Normal 50-150 [facility] Comment on above: Performed By: #### R KATIA #### [address] [address] TSHon 01-02-2019 TSH Qn 0.908 uIU/mL Normal 0.350-5.500 [facility] Comment on above: Performed By: #### D RGT #### [address] [address] Complete Blood Counton 01-01 Differential Complete Automated Normal [facility] Comment on above: Performed By: #### C BC #### [address] [address] Basophils/100 WBC (Bld) 1.00 % Normal 0.00-1.00 [facility] Comment on above: Performed By: #### C BC #### [address] [address] Eosinophils/100 WBC (Bld) 0.90 % Normal 0.00-3.00 [facility] Comment on above: Performed By: #### C BC #### [address] [address] Erythrocyte distribution width (RBC) [Ratio] 15.2 % High 0.0-14.4 [facility] Comment on above: Performed By: #### C BC #### [address] [id number] Hematocrit (Bld) [Volume fraction] 34.7 % Low 37.0-46.0 [facility] Comment on above: Performed By: #### C BC #### [address] [id number] Hemoglobin (Bld) [Mass/Vol] 10.7 g/dL Low 12.0-15.0 [facility] Comment on above: Performed By: #### C BC #### [address] [id number] Immature granulocytes/100 WBC (Bld) 0.20 % Normal [facility] Comment on above: Result Comment: Lisa ture Granulocyte Percent includes promyelocytes, myelocytes, and metamyelocytes. IG% > 1.0 indicates a left shift is present. With automated differentials, bands are included in the neutrophil count and not in the Immature Granulocyte Percent. Performed By: #### C BC #### [address] [address] Lymphocytes/100 WBC (Bld) 45.6 % High 25.0-45.0 [facility] Comment on above: Performed By: #### C BC #### [address] [address] MCH (RBC) [Entitic mass] 24.2 pg Low 25.0-35.0 [facility] Comment on above: Performed By: #### C BC #### [address] [id number] MCHC (RBC) [Mass/Vol] 30.8 % Low 31.0-37.0 [facility] Comment on above: Performed By: #### C BC #### [facility] [address] MCV (RBC) [Entitic vol] 78.5 fL Normal 78.0-96.0 [facility] Comment on above: Performed By: #### C BC #### [address] [address] Monocytes/100 WBC (Bld) 8.90 % High 3.00-6.00 [facility] Comment on above: Performed By: #### C BC #### [address] [address] Neutrophils (Bld) [#/Vol] 2.6 10*3/uL Normal [facility] Comment on above: Performed By: #### C BC #### [address] [address] Neutrophils/100 WBC (Bld) 43.4 % Normal 34.0-64.0 [facility] Comment on above: Performed By: #### C BC #### [address] [address] Nucleated RBC/100 WBC (Bld) [Ratio] 0.0 % Normal -1.0-0.0 [facility] Comment on above: Performed By: #### C BC #### [address] [address] Platelet mean volume (Bld) [Entitic vol] 9.6 fL Normal [facility] Comment on above: Result Comment: MPV is platelet range and age dependent Performed By: #### C BC #### [address] [address] Platelets (Bld) [#/Vol] 346 10*3/uL Normal 150-450 [facility] Comment on above: Performed By: #### C BC #### [address] [address] RBC (Bld) [#/Vol] 4.42 10E12/L Normal 4.10-4.80 [facility] Comment on above: Performed By: #### C BC #### [place] [address] WBC (Bld) [#/Vol] 5.9 10*3/uL Normal 4.5-13.0 [facility] Comment on above: Performed By: #### C BC #### [place] [address] Glucoseon 01-01-2019 Glucose [Mass/Vol] 113 mg/dL High 70-99 [facility] Comment on above: Result Comment: Criteria for Diagnosis of Diabetes(Effective 08/08/10): Fasting specimen (no caloric intake for at least 8 hours). <100 mg/dl Normal 100-125 mg/dl Increased Risk for Diabetes >125 mg/dl Diagnostic for Diabetes Random Glucose (any time of day without regard to last meal). >=200 mg/dl plus Classic Symptoms of Diabetes Performed By: #### G CHULA #### [place] [address] Hemoglobin A1con 01-01-2019 HbA1c (Bld) [Mass fraction] ----- Normal [facility] Comment on above: Result Comment: Reference Interval <5.7% 5.7%-6.4% prediabetes >/= 6.5% diabetes Targets for diabetes management: Type I <7.5% Type II <7.0% Change in reference range effective 2018 Performed By: #### D RGT #### [place] [address] Ironon 01-01-2019 Iron [Mass/Vol] 574 ug/dL Off scale high 228-428 [facility] Comment on above: Result Comment: Repe ated and verified. Performed By: #### I LUNA #### [address] [place] [address] Iron [Mass/Vol] 4 % Low 13-59 [facility] Comment on above: Performed By: #### I LUNA #### [facility] [address] [place] [address] Iron [Mass/Vol] 25 ug/dL Low 30-160 [facility] Comment on above: Performed By: #### I LUNA #### [address] [address] Progress Noteon 01-01-2019 [employer] Operator Authentication Interface Message Text Patient ID: Marco Boston is a 13 y.o. female. Her chief complaint(s) include: New Patient Visit (referred by PCP ) and Menstrual Problem (heavy irregular periods) Assessment 1. Abnormal uterine bleeding (AUB) 2. High risk social situation 3. Counseling for initiation of control method 4. Menorrhagia with irregular cycle Plan Marco was seen today for new patient visit and menstrual problem. Diagnoses and all orders for this visit: Abnormal uterine bleeding (AUB) - Complete Blood Count; Future - Prothrombin Time & Activated PTT; Future - Ristocetin cofactor; Future - TSH; Future - Von Willebrand antigen; Future - Iron (TIBC); Future - medroxyPROGESTERone (DEPO-PROVERA) injection 150 mg - POCT urine HCG High risk social situation Counseling for initiation of control method - medroxyPROGESTERone (DEPO-PROVERA) injection 150 mg Menorrhagia with irregular cycle - AMB Referral To Adolescent Medicine Return in about 3 months (around 04/03/2019) for depo. 13yoF here for consultation from PCP for irregular periods. History was difficult to obtain and patient is unable to verbalize if she is upset by her periods. Due to uncertain history and having to change pads with leaking often we will do a lab evaluation for common causes of bleeding and check her Hg. Because of her history of migraines with aura she is not a candidate for estrogen. She has decided on depo today. I discussed her mood at length without mom in the room. She is interested in counseling and is working on becoming established for school based counseling through [employer] (mom confirmed this later). She denies any current thoughts of self harm or suicide and was able to say that if she was having these thoughts she would turn to her boyfriend. We also discussed her home situation. She reports multiple people being in the home and others who come and go. She also reports a lot of animals. She does not feel safe there and does not like being there. She also discussed that other people will eat food quickly and she doesn't get to eat any fresh foods. Mom says she should be cleared to go back to work soon and plans to move them then. Our SW is not available at this time, but I will touch base with her tomorrow. Mom was agreeable to this plan. Leigh Ann Thorne MD 01/01/2019 2:11 PM Subjective HPI Comments: Marco Boston is being seen today for a consultative service at the request of Ema Regan MD for medical advice regarding irregular periods. History is difficult to obtain. Patient does not answer many questions and responds with I don't know. Mom will sometimes answer and then patient will fight with her over the answers. Menarche age 9 (?) How often are periods: unknown How long do they last: unknown How many pads a day: unknown Using pads Bleeds on to sheets, gets on clothes Changing often, they will be saturated No issues cramping, doesn't need to take anything for them Per mom: thinks periods are monthly, lasts 7 days, needing to change pads every 1-2 hours, >5 a day LMP ~2 weeks ago PMH +migraines (documented with aura in past, but denies now, does report vision symptoms of floaters with her migraines), no history of blood clot, no history of liver diease, high blood pressure Bleeding: No recent history of nose bleeds, gums bleed with teeth brushing, no bleeding issues with T&A when she was little, no history of easy bruising Will have episodes of light headed/dizziness, passed out once a few years ago FMH: mom with history of endometriosis- hysterectomy, no other known bleeding disorders H: lives with mom, sisters, family friends. Patient alone reports she doesn't feel safe there and is unhappy in their current living situation. E: in 7th grade, does not like school A: music, drawing D: skips breakfast, reports theres no food at home, does not like school food S: No smoking, vaping, alcohol, drugs S: dates both men and women- supported by mom, currently dating someone but he lives in [place], never had sex S: aggrevated a lot, working on getting counseling, thoughts of hurting self once in a while most recent was last week, cut in the past- hasn't for a while, has had a suicide attempt ~1 year ago, would talk to boyfriend if she had these thoughts, feels safe from herself- denies any concerns of self harm or suicide Marco is accompanied by their mother. Review of Systems Constitutional: Negative for fever, weight gain and weight loss. Eyes: Negative for blurred vision and itchy eyes. Skin: Negative for rash. Respiratory: Negative for cough and shortness of breath. HENT: Negative for nasal congestion, headaches and sore throat. Cardiovascular: Negative for racing heart. Musculoskeletal: Negative for joint pain and myalgias. Gastrointestinal: Negative for abdominal pain, constipation, diarrhea and vomiting. Genitourinary: Negative for dysuria and hematuria. Psychiatric/Behavioral: Negative for suicidal ideas. Objective Vital Signs 01/01/19 1255 BP: 110/65 Pulse: 83 Weight: 44.6 kg Height: 155.7 cm Body mass index is 18.4 kg/m . Physical Exam Constitutional: She appears well. HENT: Head: Atraumatic. Nose: No nasal discharge. Eyes: EOM are normal. Pupils are equal, round, and reactive to light. Neck: Normal range of motion. Neck supple. Thyroid normal. Cardiovascular: Normal rate, regular rhythm, S1 normal and S2 normal. Heart murmur not heard. Pulmonary/Chest: Effort normal and breath sounds normal. Abdominal: Soft. Bowel sounds are normal. Neurological: She is alert. Skin: No rash noted. Skin is warm. Vitals reviewed: Blood pressure 110/65, pulse 83, height 155.7 cm, weight 44.6 kg, last menstrual period 12/20/2018. Last Result POCT urine HCG Collection Time: 01/01/19 1:55 PM Result Value Ref Range hCG Urine POCT Negative Negative Control Line *Present Clear Background *Present Lot Number [id number] Normal [facility] Prothrombin Time AND Activat ed PTTon 01-01-2019 INR Coag (PPP) [Relative time] 1.1 Normal 0.7-1.3 [facility] Comment on above: Result Comment: Therapeutic Range for Oral Anticoagulant Anticoagulant Therapy INR Standard Therapy 2.0-3.0 Prophylaxsis/Treatment of venous thrombosis Treatment of PE Prevention of systemic embolism Tissue heart valves Acute Myocardial Infarction (to prevent systemic embolism) Valvular heart disease Atrial fibrillation Higher Intensity 2.5-3.5 Mechanical Prosthetic valves The INR is used only for patients on stable oral anticoagulant therapy. It makes no significant contribution to the diagnosis or treatment of patients whose PT is prolonged for other reasons. Performed By: #### P TPTT #### [place] [id number] PT Coag (PPP) [Time] 10.9 s Normal 8.5-14.0 [facility] Comment on above: Result Comment: Children < 1 yr of age may have a slightly prolonged prothrombin time as the test is dependent on the level to which their coagulation factors have developed. Performed By: #### P TPTT #### [address] [id number] aPTT Coag (Bld) [Time] 23.4 s Normal 0.0-40.0 [facility] Comment on above: Result Comment: Children < 1 yr of age may have a slightly prolonged activated partial thromboplastin time as the test is dependent on the level to which their coagulation factors have developed. Performed By: #### P TPTT #### [address] [address] Progress Noteon 12-26-2018 [employer] Operator Authentication Interface Message Text Patient ID: Marco Boston is a 13 y.o. female. Her chief complaint(s) include: ED Follow Up (Needs inhaler refill) Assessment 1. Follow-up examination 2. Anxiety 3. Menorrhagia with irregular cycle 4. Moderate persistent asthma, uncomplicated 5. Parental concern about child 6. Need for vaccination Plan Marco was seen today for ed follow up. Diagnoses and all orders for this visit: Follow-up examination Parental concern about child - Hemoglobin A1c (Clinic Collect) - POCT Blood Glucose - Finger/Heel Stick Menorrhagia with irregular cycle - AMB Referral To Adolescent Medicine; Future Moderate persistent asthma, uncomplicated - Influenza Vaccine 0.5 mL >= 6 mo Quadrivalent (PF) - fluticasone (FLOVENT HFA) 110 MCG/ACT 110 mcg inhaler; Inhale 1 Puff into the lungs 2 times daily - Spacer/Aero-Holding Chambers (OPTICHAMBER ELENA-LG MASK) SHAWN Device; Use with inhaled medication as instructed. - albuterol 108 (90 Base) MCG/ACT inhaler; Inhale 2 Puffs into the lungs every 4 hours as needed for Wheezing, Shortness of Breath or Cough Use with spacer. Need for vaccination - Influenza Vaccine 0.5 mL >= 6 mo Quadrivalent (PF) Anxiety Reassured that right strength and sensation is back to normal. Keep appointment with Alex Schmitt for counseling. Needed refills for albuterol and controlled medication. Mom did not feel that QVAR was working as well and has been off for a while - will try Flovent at moderate persistent dose. Mom to call back with update. AAP for school completed Discussed periods. Will have adolescent medicine evaluate Had a long discussion about the importance of eating regular meals and drinking plenty of fluids. Random glucose not consistent with diabetes. Will call with Hbg A1c Return for Well Visit and as needed. Subjective HPI Comments: 12/20 - seen in the [facility] ED. Brought by EMS 2/2 syncope and possible seizure. Urine drug screen negative. Had right sided UE and LE weakness and decreased sensation. + Joyner's sign on exam. That with stressors at home (8 other people live in the home in addition to multiple pets)- diagnosed with conversion disorder and instructed to seek counseling for anxiety. She did have a tremor that resolved with Powerade - she skips breakfast and instructed to eat normal meals and drink plenty of fluids. Currently her right side is back to normal - in both strength and sensation. She drinks plenty of fluids, but doesn't eat breakfast. Denies feeling shaky now, but did feel a little shaky at school. Mom contacted Alex Schmitt and she is set to start counseling to work on her anxiety. Diabetes runs in the family. Mom would like her tested. She also has heavy periods. Changing a pads more than every hour. They are irregular at times. Also need refill of albuterol, buts wants to change her QVAR - didn't think it worked as well as it should. Currently using her albuterol not normally daily but at least every other day for daytime symtpoms ED Follow Up She is accompanied by her mother. Primary Care Review of Systems Objective Vital Signs 12/26/18 1456 Temp: 36.8 C (98.2 F) TempSrc: Temporal Weight: 45.2 kg There is no height or weight on file to calculate BMI. Physical Exam Constitutional: She appears well. She is active. No distress. HENT: Head: Atraumatic. Mouth/Throat: Mucous membranes are moist. Eyes: Conjunctivae are normal. Cardiovascular: Normal rate, regular rhythm, S1 normal and S2 normal. Heart murmur not heard. Pulmonary/Chest: Effort normal and breath sounds normal. There is normal air entry. No respiratory distress. Air movement is not decreased. She has no wheezes. She has no rhonchi. She has no rales. Neurological: She is alert. She has normal strength. Sensation equal on both upper and low extremities Skin: Skin is warm. Vitals reviewed: Temperature 36.8 C (98.2 F), temperature source Temporal, weight 45.2 kg, last menstrual period 12/20/2018. Last Result POCT Blood Glucose Collection Time: 12/26/18 3:58 PM Result Value Ref Range POCT Glucose, Blood 130 (A) 60 - 110 mg/dL Normal [facility] Drugs of Abuse with THC, Uri neon 12-20-2018 Amphetamines Ql (U) Negative Normal Negative [facility] Comment on above: Result Comment: Thre shold = 1000 ng/mL Performed By: #### D RGT #### [place] [address] Barbiturates Negative Normal Negative [facility] Comment on above: Result Comment: Thre shold = 200 ng/mL Performed By: #### D RGT #### [place] [id number] Benzodiazepines Ql (U) Negative Normal Negative [facility] Comment on above: Result Comment: Thre shold = 200 ng/mL Performed By: #### D RGT #### [facility] [address] [place] [address] Cocaine Ql (U) Negative Normal Negative [facility] Comment on above: Result Comment: Thre shold = 300 ng/mL Performed By: #### D RGT #### [facility] [address] [place] [address] Methadone Ql (U) Negative Normal Negative [facility] Comment on above: Result Comment: Thre shold = 300 ng/mL Performed By: #### Satinder RGT #### [facility] of [address] [place] [address] Opiates Ql (U) Negative Normal Negative [facility] Comment on above: Result Comment: Thre shold = 300 ng/mL Performed By: #### Satinder RGT #### [facility] of [address] [place] [address] Oxycodone Negative Normal Negative [facility] Comment on above: Result Comment: Thre shold = 300 ng/mL Performed By: #### D RGT #### [facility] of [address] [place] [address] PCP-Phencyclidine Negative Normal Negative [facility] Comment on above: Result Comment: Thre shold = 25 ng/mL Performed By: #### D RGT #### [facility] [address] [place] [address] THC50, Urine Negative Normal Negative [facility] Comment on above: Result Comment: Thre shold = 50 ng/mL Performed By: #### D RGT #### [facility] [address] [place] [address] FRANKI Test Comment ----- Normal [facility] Comment on above: Result Comment: Note: This testing is intended for medical management and treatment only. Analysis performed using non-forensic procedures. Performed By: #### D RGT #### [address] [address] ED Provider Progress Noteon 12-20-2018 [employer] Operator Authentication Interface Message Text Marco Boston : 2005 Chief Complaint Patient presents with Near Syncope Seizures No Known Allergies DOS: 12/20/2018 Patient is a 12 y.o. female presenting via EMS due to concern of syncope, and possible seizure. Patient was in science class this morning, and finished her assignment early. She started to watch a video on her I pad, and suddenly felt light headed. She was taken to see the school nurse, who noted that patients right hand was shaking, and that the patient could not control the shaking. Nurse advised that patient come to the ED, and EMS was called. Patients vitals were stable, and blood glucose was 76. In the ED, patient stated that she did not light headed anymore, but had a left sided headache, that was achy. Patients right hand was still shaking. Patient denies a history of shaking. Patient denies photophobia, and endorsed mild phonophobia. Patient denies prior symptoms like this. Mom at bedside states the patient has symptoms when she is on her period, and that patient is on her period right now. She moved to [place] from [place] as a little girl at age 1. Endorses a history of asthma and migraines. Patient lives at home with her mom, two sisters, uncle and his girlfriend, two cousins, and a rocio who's name I forget. Patient states that she is stressed out, and attributes her stress to her home life, with a lot of people in the house, big dogs, and critters getting into the food. Private conversation with patient revealed that she is not sexually active, and denies prior drug use. Patient has not been taking her asthma medications as she has felt well. 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 Review of Systems Constitutional: Negative for activity change, chills, fatigue and fever. HENT: Negative for postnasal drip, rhinorrhea and sore throat. Eyes: Negative for pain. Respiratory: Negative for cough, chest tightness and shortness of breath. Cardiovascular: Negative for chest pain. Gastrointestinal: Negative for abdominal pain, constipation, diarrhea, nausea and vomiting. Musculoskeletal: Negative for gait problem. Neurological: Positive for seizures, light-headedness, numbness and headaches. Negative for dizziness and syncope. Psychiatric/Behavioral: Negative for behavioral problems. The patient is not hyperactive. Past Medical History: Diagnosis Date Asthma allergy based Other abnormal clinical finding Seasonal allergies Past Surgical History: Procedure Laterality Date ENT SURGERY FOREARM CLOSED REDUCTION Left 10/07/2014 Closed reduction left distal ulna fracture performed by Tarik Abraham MD at [facility] OR TONSILLECTOMY september 2011 TONSILLECTOMY AND ADENOIDECTOMY Pediatric History Patient Guardians Lorie Boston (Mother) Patient does not qualify to have social determinant information on file (likely too young). Other Topics Concern Interpersonal relationships Not Asked Poor school performance Not Asked Reading difficulties Not Asked Speech difficulties Not Asked Writing difficulties Not Asked Toilet training problems Not Asked Inadequate sleep Not Asked Excessive TV viewing Not Asked Excessive video game use Not Asked Inadequate exercise Not Asked Sports related Not Asked Poor diet Not Asked Second-hand smoke exposure Not Asked Alcohol/drug concerns Not Asked Violence concerns Not Asked Poor oral hygiene Not Asked Bike safety Not Asked Vehicle safety Not Asked Social History Narrative Not on file ED Triage Vitals Date and Time Temp Temp src Pulse Resp BP SpO2 Weight User 12/20/18 1205 36.6 C (97.9 F) Temporal 75 18 114/71 98 % 46.8 kg JMB Physical Exam Vitals signs and nursing note reviewed. Constitutional: General: She is not in acute distress. Appearance: Normal appearance. She is well-developed and normal weight. She is not ill-appearing, toxic-appearing or diaphoretic. HENT: Head: Normocephalic. Right Ear: Tympanic membrane and ear canal normal. Left Ear: Tympanic membrane and ear canal normal. Nose: Nose normal. No congestion or rhinorrhea. Mouth/Throat: Mouth: Mucous membranes are moist. Pharynx: No oropharyngeal exudate or posterior oropharyngeal erythema. Oropharynx is clear. Eyes: General: No scleral icterus. Right eye: No discharge. Left eye: No discharge. Extraocular Movements: Extraocular movements intact. Conjunctiva/sclera: Conjunctivae normal. Pupils: Pupils are equal, round, and reactive to light. Neck: Musculoskeletal: Normal range of motion and neck supple. No neck rigidity or muscular tenderness. Cardiovascular: Rate and Rhythm: Normal rate and regular rhythm. Pulses: Normal pulses. Heart sounds: Normal heart sounds. No murmur. No friction rub. No gallop. Pulmonary: Effort: Pulmonary effort is normal. No respiratory distress. Breath sounds: Normal breath sounds. No stridor. No wheezing, rhonchi or rales. Chest: Chest wall: No tenderness. Abdominal: General: Abdomen is flat. Bowel sounds are normal. There is no distension. Palpations: Abdomen is soft. There is no mass. Tenderness: There is no tenderness. There is no right CVA tenderness or left CVA tenderness. Musculoskeletal: Normal range of motion. General: No swelling, tenderness, deformity or signs of injury. Right lower leg: No edema. Left lower leg: No edema. Lymphadenopathy: Cervical: No cervical adenopathy. Skin: General: Skin is warm and dry. Capillary Refill: Capillary refill takes less than 2 seconds. Coloration: Skin is not pale. Findings: No rash. Neurological: General: No focal deficit present. Mental Status: She is alert and oriented to person, place, and time. Mental status is at baseline. Cranial Nerves: No cranial nerve deficit. Sensory: No sensory deficit. Motor: No weakness or abnormal muscle tone. Coordination: Coordination normal. Gait: Gait normal. Deep Tendon Reflexes: Reflexes normal. Comments: Patient endorsed decreased sensation in her right lower extremity, and right upper extremity. 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 Patient could barely lift right leg off the bed, however had a +Joyner sign when lifting the left leg. Patient was able to stand and ambulate to the bathroom. Patient had right hand tremor, which improved when distracted. Procedures MDM ED Course: Diagnosis' considered: Partial seizure, Conversion disorder, anxiety Treatment/Reassessment: Patient appeared afebrile, and like she may have been intentionally tremoring her right hand as she had been noted to walk, stopped tremoring while drinking water with her left hand. A test and urine drug screen were obtained, which were both negative. Orthostatic vitals were unremarkable. Given patients positive joyner's sign, and stressors at home, this appeared to be conversion disorder. Patient given resources for counseling, and discharged home with advice to also follow up with PCP. Encounter Documentation/Handoff: Medical Decision Making as of Dec 22 2019SunDec 20, 2018 1203 Arrived via AFD, for feeling dizzy and shaking. BGT 70. No intervention given. Plan for EKG, UDS, HCG, orthostats, and po sugar liquids. [DP] 1206 R arm shaking stops when she drinks powerade with her left arm. [DP] 1207 VSS [DP] 1334 Orthostats negative. [DP] 1335 HCG,Urine: Negative [DP] 1336 neg Drugs of Abuse with THC, urine-Sewaren: Amphetamines, Ur NEGATIVE Barbiturates, Ur NEGATIVE Benzodiazepines, Ur NEGATIVE Cocaine NEGATIVE Methadone, Ur NEGATIVE Opiates NEGATIVE Oxycodone NEGATIVE PCP-Phencyclidine NEGATIVE THC,50,Urine NEGATIVE FRANKI Test Comment ----- [DP] 1337 8 other people live in the home in addition to multiple pets. On her menses now. Skips breakfast. Shaking stopped after drank powerade. Now just a mild MANZANO. [DP] 1339 +Joyner's on LE & UE exam. Exam consistent with conversion disorder. Lots of stressors at home. [DP] Sat Dec 21, 20182019 Given instructions on regular meals, appropriate hydration and salt intake and need to FU with counseling for her anxiety. FU with PCP in 2 days. [DP] Medical Decision Making User Index [DP] Marija Frank DO Final Clinical Impression/Diagnosis as of Dec 22 2019 Conversion disorder with abnormal movement, acute episode, with psychological stressor Marco [place] Medication Instructions EDY:[id number] Printed on:12/21/182018 Medication Information albuterol 108 (90 Base) MCG/ACT inhaler Inhale 2 Puffs into the lungs every 4 hours as needed for Wheezing or Cough Use with spacer. cetirizine (ZYRTEC) 5 MG tablet take 1 tablet by mouth once daily Melatonin 3 MG CAPS Take 3 mg by mouth nightly at bedtime Attending note: I have reviewed the nursing notes, history of present illness, past medical, family, and social history, review of systems, and physical exam with the Resident/Fellow/OCTAVIO. Based on my own interview and examination I have reviewed and agree with the History of Present Illness, Past Medical History, Family History, and Social History as documented. The Review of Systems is negative, except as documented. The Physical Exam as documented is accurate. I participated in determining and agree with the management, procedures, final impression, and disposition as documented. Marija Frank DO, MA, FAAP Pediatric Emergency Medicine Attending Director, Pediatric Emergency Ultrasound [phone] 12/21/2018 8:20 PM Normal [facility] HCG,Urineon 12-20-2018 Beta HCG ( test) Ql (U) Negative Normal [facility] Comment on above: Result Comment: Nonp regnant females and males-Negative females-Positive Performed By: #### H UR #### [address] [address] Vital Signs Date Time Vital Sign Value Performing Clinician Facility 07-21-2024 14:170400 Body height 157.5 cm TERE SNOW MD [facility] 07-21-2024 14:17-040 Body temperature 97.7 [degF] TERE SNOW MD [facility] 07-21-2024 14:17040 Body weight 48 kg TERE SNOW MD [facility] 07-21-2024 14:17-040 Diastolic Blood Pressure Non-Invasive 71 mm[Hg] TERE SNOW MD [facility] 07-21-2024 14:17-0400 Heart rate 82 /min TERE SNOW MD [facility] 07-21-2024 14:17-0400 Height ZScore -0.89 1 TERE SNOW MD [facility] Comment on above: Result Comment: ^~:!ZScore [facility] 07-21-2024 14:17-0400 Percent Height for Age 18.54 % TERE SNOW MD [facility] Comment on above: Result Comment: ^~:!Percentile Source [facility] 07-21-2024 14:17-0400 Respiratory rate 16 /min TERE SNOW MD [facility] 07-21-2024 14:17-0400 Systolic Blood Pressure Non-Invasive 104 mm[Hg] TERE SNOW MD [facility] 08-24-2023 09:00-0400 Body temperature 98.06 [degF] RACHAEL BARTLETT MD [facility] 08-24-2023 09:00-0400 Diastolic Blood Pressure Non-Invasive 58 mm[Hg] RACHAEL BARTLETT MD [facility] 08-24-2023 09:00-0400 Heart rate 82 /min RACHAEL BARTLETT MD [facility] 08-24-2023 09:00-0400 Respiratory rate 18 /min RACHAEL BARTLETT MD [facility] 08-24-2023 09:00-0400 Systolic Blood Pressure Non-Invasive 100 mm[Hg] RACHAEL BARTLETT MD [facility] 08-24-2023 00:07-0400 Body temperature 98.42 [degF] RACHAEL BARTLETT MD [facility] 08-24-2023 00:07-0400 Diastolic Blood Pressure Non-Invasive 50 mm[Hg] RACHAEL BARTLETT MD [facility] 08-24-2023 00:07-0400 Heart rate 102 /min RACHAEL BARTLETT MD [facility] 08-24-2023 00:07-0400 Respiratory rate 18 /min RACHAEL BARTLETT MD [facility] 08-24-2023 00:07-0400 Systolic Blood Pressure Non-Invasive 96 mm[Hg] RACHAEL BARTLETT MD [facility] 08-23-2023 16:50-0400 Body height 157 cm RACHAEL BARTLETT MD [facility] 08-23-2023 16:50-0400 Body mass index (BMI) [Percentile] Per age and sex 67.22 % RACHAEL BARTLETT MD [facility] Comment on above: Result Comment: ^~:!Percentile Source -[facility] 08-23-2023 16:50-0400 Body weight 56.8 kg RACHAEL BARTLETT MD [facility] 08-23-2023 16:50-0400 Body weight 23.04 kg/m2 RACHAEL BARTLETT MD [facility] 08-23-2023 16:50-0400 bodymassindex 0.45 kg/m2 RACHAEL BARTLETT MD [facility] Comment on above: Result Comment: ^~:!ZScore Source [facility] 08-23-2023 16:50-0400 Height ZScore -0.96 1 RACHAEL BARTLETT MD [facility] Comment on above: Result Comment: ^~:!ZScore Source -[facility] 08-23-2023 16:50-0400 Percent Height for Age 16.90 % RACHAEL BARTLETT MD [facility] Comment on above: Result Comment: ^~:!Percentile Source -[facility] 08-23-2023 15:45-0400 Diastolic Blood Pressure Non-Invasive 60 mm[Hg] RACHAEL BARTLETT MD [facility] 08-23-2023 15:45-0400 Heart rate 97 /min RACHAEL BARTLETT MD [facility] 08-23-2023 15:45-0400 Systolic Blood Pressure Non-Invasive 97 mm[Hg] RACHAEL BARTLETT MD [facility] 08-23-2023 13:30-0400 Body temperature 98.6 [degF] RACHAEL BARTLETT MD [facility] 08-23-2023 07:51-0400 Body height 157 cm RACHAEL BARTLETT MD [facility] 08-23-2023 07:51-0400 Body mass index (BMI) [Percentile] Per age and sex 67.22 % RACHAEL BARTLETT MD [facility] Comment on above: Result Comment: ^~:!Percentile Source -[facility] 08-23-2023 07:51-0400 Body weight 56.8 kg RACHAEL BARTLETT MD [facility] 08-23-2023 07:51-0400 Body weight 23.04 kg/m2 RACHAEL BARTLETT MD [facility] 08-23-2023 07:51-0400 bodymassindex 0.45 kg/m2 RACHAEL BARTLETT MD [facility] Comment on above: Result Comment: ^~:!ZScore [facility] 08-23-2023 07:51-0400 Height ZScore -0.96 1 RACHAEL BARTLETT MD [facility] Comment on above: Result Comment: ^~:!ZScore [facility] 08-23-2023 07:51-0400 Percent Height for Age 16.90 % RACHAEL BARTLETT MD [facility] Comment on above: Result Comment: ^~:!Percentile Source [facility] 08-15-2023 16:20-0400 Body height 157 cm KEEGAN JEWELL MD [facility] 08-15-2023 16:20-0400 Body mass index (BMI) [Percentile] Per age and sex 55.59 % KEEGAN JEWELL MD [facility] Comment on above: Result Comment: ^~:!Percentile Source [facility] 08-15-2023 16:20-0400 Body weight 54 kg KEEGAN JEWELL MD [facility] 08-15-2023 16:20-0400 Body weight 21.91 kg/m2 KEEGAN JEWELL MD [facility] 08-15-2023 16:20-0400 bodymassindex 0.14 kg/m2 KEEGAN JEWELL MD [facility] Comment on above: Result Comment: ^~:!ZScore [facility] 08-15-2023 16:20-0400 Height ZScore -0.96 1 KEEGAN JEWELL MD [facility] Comment on above: Result Comment: ^~:!ZScore [facility] 08-15-2023 16:20-0400 Percent Height for Age 16.90 % KEEGAN JEWELL MD [facility] Comment on above: Result Comment: ^~:!Percentile Source -[facility] 08-15-2023 16:00-0400 Body temperature 97.88 [degF] KEEGAN JEWELL MD [facility] 08-15-2023 16:00-0400 Diastolic Blood Pressure Non-Invasive 60 mm[Hg] KEEGAN JEWELL MD [facility] 08-15-2023 16:00-0400 Heart rate 110 /min KEEGAN JEWELL MD [facility] 08-15-2023 16:00-0400 Respiratory rate 18 /min KEEGAN JEWELL MD [facility] 08-15-2023 16:00-0400 Systolic Blood Pressure Non-Invasive 112 mm[Hg] KEEGAN JEWELL MD [facility] 07-05-2023 10:51-0400 Body temperature 98.06 [degF] VIKTORIA MARINELLI KENNEL HAND-CNM [facility] 07-05-2023 10:51-0400 Diastolic Blood Pressure Non-Invasive 58 mm[Hg] VIKTORIA MARINELLI KENNEL HAND-CNM [facility] 07-05-2023 10:51-0400 Heart rate 126 /min VIKTORIA MARINELLI KENNEL HAND-CNM [facility] 07-05-2023 10:51-0400 Reason For Taking VItal Signs VIKTORIA MARINELLI KENNEL HAND-CNM [facility] 07-05-2023 10:51-0400 Respiratory rate 14 /min VIKTORIA MARINELLI KENNEL HAND-CNM [facility] 07-05-2023 10:51-0400 Systolic Blood Pressure Non-Invasive 97 mm[Hg] VIKTORIA MARINELLI KENNEL HAND-CNM [facility] 07-03-2023 02:14-0400 Body height 157.5 cm RACHAEL BARTLETT MD [facility] 07-03-2023 02:14-0400 Body mass index (BMI) [Percentile] Per age and sex 45.53 % RACHAEL BARTLETT MD [facility] Comment on above: Result Comment: ^~:!Percentile Source -[facility] 07-03-2023 02:14-0400 Body weight 52.3 kg RACHAEL BARTLETT MD [facility] 07-03-2023 02:14-0400 Body weight 21.08 kg/m2 RACHAEL BARTLETT MD [facility] 07-03-2023 02:14-0400 bodymassindex -0.11 kg/m2 RACHAEL BARTLETT MD [facility] Comment on above: Result Comment: ^~:!ZScore Source -[facility] 07-03-2023 02:14-0400 Height ZScore -0.88 1 RACHAEL BARTLETT MD [facility] Comment on above: Result Comment: ^~:!ZScore Source -[facility] 07-03-2023 02:14-0400 Percent Height for Age 18.95 % RACHAEL BARTLETT MD [facility] Comment on above: Result Comment: ^~:!Percentile Source -[facility] 07-03-2023 02:10-0400 Body temperature 98.06 [degF] RACHAEL BARTLETT MD [facility] 07-03-2023 02:10-0400 Diastolic Blood Pressure Non-Invasive 68 mm[Hg] RACHAEL BARTLETT MD [facility] 07-03-2023 02:10-0400 Heart rate 95 /min RACHAEL BARTLETT MD [facility] 07-03-2023 02:10-0400 Reason For Taking VItal Signs RACHAEL BARTLETT MD [facility] 07-03-2023 02:10-0400 Respiratory rate 18 /min RACHAEL BARTLETT MD [facility] 07-03-2023 02:10-0400 Systolic Blood Pressure Non-Invasive 109 mm[Hg] RACHAEL BARTLETT MD [facility] 03-12-2023 12:55-0500 Body height 157.5 cm EDDIE SANCHEZ MD [facility] 03-12-2023 12:55-0500 Body temperature 98.6 [degF] EDDIE SANCHEZ MD [facility] 03-12-2023 12:55-0500 Body weight 45 kg EDDIE SANCHEZ MD [facility] 03-12-2023 12:55-0500 Diastolic Blood Pressure Non-Invasive 68 mm[Hg] EDDIE SANCHEZ MD [facility] 03-12-2023 12:55-0500 Heart rate 98 /min EDDIE SANCHEZ MD [facility] 03-12-2023 12:55-0500 Height ZScore -0.87 1 EDDIE SANCHEZ MD [facility] Comment on above: Result Comment: ^~:!ZScore Source -[facility] 03-12-2023 12:55-0500 Percent Height for Age 19.14 % EDDIE SANCHEZ MD [facility] Comment on above: Result Comment: ^~:!Percentile Source -[facility] 03-12-2023 12:55-0500 Respiratory rate 18 /min EDDIE SANCHEZ MD [facility] 03-12-2023 12:55-0500 Systolic Blood Pressure Non-Invasive 103 mm[Hg] EDDIE SANCHEZ MD [facility] 02-16-2023 21:18-0500 Body temperature 98.6 [degF] KANDY FROMMELT DO [facility] 02-16-2023 21:18-0500 Body weight 45.4 kg KANDY FROMMELT DO [facility] 02-16-2023 21:18-0500 Diastolic Blood Pressure Non-Invasive 79 mm[Hg] KANDY FROMMELT DO [facility] 02-16-2023 21:18-0500 Heart rate 87 /min KANDY FROMMELT DO [facility] 02-16-2023 21:18-0500 Respiratory rate 18 /min KANDY FROMMELT DO [facility] 02-16-2023 21:18-0500 Systolic Blood Pressure Non-Invasive 113 mm[Hg] KANDY FROMMELT DO [facility] 10-13-2022 06:12-0400 Body height 157.5 cm EDDIE SANCHEZ MD [facility] 10-13-2022 06:12-0400 Body temperature 98.24 [degF] EDDIE SANCHEZ MD [facility] 10-13-2022 06:12-0400 Body weight 47.5 kg EDDIE SANCHEZ MD [facility] 10-13-2022 06:12-0400 Diastolic Blood Pressure Non-Invasive 74 mm[Hg] EDDIE SANCHEZ MD [facility] 10-13-2022 06:12-0400 Heart rate 75 /min EDDIE SANCHEZ MD [facility] 10-13-2022 06:12-0400 Height ZScore -0.86 1 EDDIE SANCHEZ MD [facility] Comment on above: Result Comment: ^~:!ZScore Source -[facility] 10-13-2022 06:12-0400 Percent Height for Age 19.42 1 EDDIE SANCHEZ MD [facility] Comment on above: Result Comment: ^~:!Percentile Source -[facility] 10-13-2022 06:12-0400 Respiratory rate 16 /min EDDIE SANCHEZ MD [facility] 10-13-2022 06:12-0400 Systolic Blood Pressure Non-Invasive 116 1 EDDIE SANCHEZ MD [facility] 01-12-2022 22:28-0500 Body temperature 97.7 [degF] LAILA [employer] DO [facility] 01-12-2022 22:28-0500 Body weight 46.5 kg LAILA [employer] DO [facility] 01-12-2022 22:28-0500 Diastolic Blood Pressure Non-Invasive 75 1 [facility] 01-12-2022 22:28-0500 Heart rate 88 /min [facility] DO [facility] 01-12-2022 22:28-0500 Respiratory rate 16 /min [facility] DO [facility] 01-12-2022 22:28-0500 Systolic Blood Pressure Non-Invasive 121 1 [facility] DO [facility] 2021 19:48-0400 Body temperature 102.02 [degF] TERE SNOW MD [facility] 2021 19:48-0400 Heart rate 140 /min TERE SNOW MD [facility] 2021 19:30-0400 Body height 157 cm TERE SNOW MD [facility] 2021 19:30-0400 Body temperature 99.5 [degF] TERE SNOW MD [facility] 2021 19:30-0400 Body weight 47.5 kg TERE SNOW MD [facility] 2021 19:30-0400 Diastolic blood pressure 65 mm[Hg] TERE SNOW MD [facility] 2021 19:30-0400 Heart rate 147 /min TERE SNOW MD [facility] 2021 19:30-0400 Height ZScore -0.92 TERE SNOW MD [facility] Comment on above: Result Comment: ^~:!ZScore [facility] 2021 19:30-0400 Percent Height for Age 18.01 1 TERE SNOW MD [facility] Comment on above: Result Comment: ^~:!Percentile Source -[facility] 2021 19:30-0400 Systolic blood pressure 99 mm[Hg] TERE SNOW MD [facility] 10-03-2021 00:56-0400 Body temperature 97.7 [degF] EDDIE SANCHEZ MD [facility] 10-03-2021 00:56-0400 Diastolic blood pressure 70 mm[Hg] EDDIE SANCHEZ MD [facility] 10-03-2021 00:56-0400 Heart rate 84 /min EDD[facility] SANCHEZ [facility] [facility] 10-03-2021 00:56-0400 Respiratory rate 18 /min EDDIE SANCHEZ MD [facility] 10-03-2021 00:56-0400 Systolic blood pressure 124 mm[Hg] EDDIE SANCHEZ MD [facility] 01-31-2021 02:42-0500 Body height 160 cm HORTENCIA DAHL MD [facility] 01-31-2021 02:42-0500 Body temperature 97.7 [degF] HORTENCIA DAHL MD [facility] 01-31-2021 02:42-0500 Body weight 46 kg HORTENCIA DAHL MD [facility] 01-31-2021 02:42-0500 Diastolic blood pressure 66 mm[Hg] HORTENCIA DAHL MD [facility] 01-31-2021 02:42-0500 Heart rate 115 /min HORTENCIA DAHL MD [facility] 01-31-2021 02:42-0500 Respiratory rate 24 /min HORTENCIA DAHL MD [facility] 01-31-2021 02:42-0500 Systolic blood pressure 105 mm[Hg] HORTENCIA DAHL MD [facility] Encounters Encounter Date Encounter Type Care Provider Facility Start: 10-10-2024 End: 10-10-2024 Patient encounter procedure J[facility] Work Phone: Start: 10-10-2024 End: 10-10-2024 ambulatory J[facility] Start: 07-21-2024 End: 07-21-2024 Emergency department patient visit TERE SNOW MD [facility] Start: 10-24-2023 End: 10-24-2023 ambulatory VIKTORIA CHRISTIANSON KENNEL [employer] WORK[employer] Facility:B Start: 08-23-2023 End: 08-24-2023 Evaluation and management of inpatient RACHAEL BARTLETT MD [facility] Start: 08-17-2023 End: 08-17-2023 ambulatory KEEGAN JEWELL MD Facility:B Start: 08-17-2023 End: 08-17-2023 Patient encounter procedure KEEGAN JEWELL MD [facility] Start: 08-15-2023 End: 08-15-2023 ambulatory KEEGAN JEWELL MD Facility:B Start: 08-15-2023 End: 08-15-2023 SAME DAY STAY KEEGAN JEWELL MD [facility] Start: 08-03-2023 ambulatory VIKTORIA MARINELLI Facilit y:B Start: 08-01-2023 End: 08-05-2023 ambulatory VIKTORIA MARMOLEJOKIN Facility:B Start: 08-01-2023 End: 08-05-2023 Outreach Lab VIKTORIA Saavedra YVES KENNEL HAND-CNM [facility] Start: 07-05-2023 End: 07-05-2023 ambulatory VIKTORIA TURNEREDITH Facility:B Start: 07-05-2023 End: 07-05-2023 SAME DAY STAY VIKTORIA Saavedra YVES KENNEL HAND-CNM [facility] Start: 07-03-2023 End: 07-03-2023 ambulatory VIKTORIA TURNEREDITH Facility:B Start: 07-03-2023 End: 07-03-2023 Patient encounter procedure VIKTORIA Keri MARINELLI KENNEL HAND-CNM [facility] Start: 07-03-2023 End: 07-03-2023 ambulatory RACHAEL BARTLETT MD Facility:B Start: 07-03-2023 End: 07-03-2023 Evaluation and management of inpatient RACHAEL BARTLETT MD [facility] Start: 05-11-2023 End: 05-11-2023 ambulatory VIKTORIAWARD MARMOLEJOKIN Facility:B Start: 05-07-2023 End: 05-07-2023 ambulatory VIKTORIA MARMOLEJOKIN Facility:B Start: 05-07-2023 End: 05-07-2023 Patient encounter procedure VIKTORIA MARINELLI KENNEL HAND-CNM [facility] Start: 04-09-2023 End: 04-09-2023 ambulatory VIKTORIA MARINELLI Facility:B Start: 04-09-2023 End: 04-09-2023 Patient encounter procedure VIKTORIA MARINELLI KENNEL HAND-CNM [facility] Start: 03-12-2023 End: 03-12-2023 Emergency department patient visit EDDIE SANCHEZ MD [facility] Start: 02-16-2023 End: 02-16-2023 Emergency department patient visit KANDY SCHMITZ DO Facility:B Start: 01-31-2023 End: 01-31-2023 ambulatory VIKTORIA MARINELLI Facility:B Start: 01-31-2023 End: 01-31-2023 Patient encounter procedure VIKTORIA MARINELLI KENNEL HAND-CNM [facility] Start: 01-15-2023 End: 01-15-2023 ambulatory VIKTORIA MARINELLI Facility:B Start: 01-15-2023 End: 01-15-2023 Patient encounter procedure VIKTORIA MARINELLI KENNEL HAND-CNM [facility] Start: 01-03-2023 End: 01-07-2023 ambulatory VIKTORIA MARINELLI Facility:B Start: 01-03-2023 End: 01-07-2023 Outreach Lab VIKTORIA MARINELLI KENNEL HAND-CNM [facility] Start: 10-13-2022 End: 10-13-2022 Emergency department patient visit EDDIE SANCHEZ MD [facility] Start: 04-17-2022 End: 04-17-2022 Patient encounter procedure LISA MAST KENNEL HAND-[employer] UP WORKER [facility] Start: 01-12-2022 End: 01-12-2022 Emergency department patient visit LAILA CHRIS DO [facility] Start: 2021 End: 2021 Emergency department patient visit TERE SNOW MD [facility] Start: 10-03-2021 End: 10-03-2021 Emergency department patient visit EDDIE SANCHEZ MD [facility] Start: 01-31-2021 End: 01-31-2021 Emergency department patient visit HORTENCIA DAHL MD [facility] Procedures Date Procedure Procedure Detail Performing Clinician Start: 03-05-2009 Tonsillectomy & adenoidectomy EDDIE SANCHEZ MD Immunizations Immunization Date Immunization Notes Care Provider [facility] 01-06-2021 meningococcal oligosaccharide (groups A, C, Y and W-135) diphtheria toxoid conjugate vaccine (MCV4O); Translations: [Menveo] HORTENCIA DAHL MD [facility] 01-06-2021 Human Papillomavirus 9-valent vaccine; Translations: [Gardasil 9] HORTENCIA DAHL MD [facility] 01-06-2021 influenza virus vacc ine, unspecified formulation; Translations: [Fluzone PF Quadrivalent ] HORTENCIA DAHL MD [facility] 08-07-2019 tetanus toxoid, redu simon diphtheria toxoid, and acellular pertussis vaccine, adsorbed; Translations: [Boostrix (Tdap)] HORTENCIA DAHL MD [facility] 12-26-2018 influenza virus vacc ine, unspecified formulation EDDIE SANCHEZ MD [facility] 03-15-2018 Human Papillomavirus Quadval EDDIE SANCHEZ MD [facility] 03-15-2018 influenza virus vacc ine, unspecified formulation EDDIE SANCHEZ MD [facility] 01-31-2017 influenza virus vacc ine, unspecified formulation EDDIE SANCHEZ MD [facility] 09-16-2016 hepatitis A vaccine, pediatric dosage, unspecified formulation EDDIE SANCHEZ MD [facility] 09-16-2016 Human Papillomavirus Quadval EDDIE SANCHEZ MD [facility] 09-16-2016 meningococcal polysaccharide (groups A, C, Y and W-135) diphtheria toxoid conjugate vaccine (MCV4P) EDDIE SANCHEZ MD [facility] 09-16-2016 tetanus toxoid, redu simon diphtheria toxoid, and acellular pertussis vaccine, adsorbed EDDIE SANCHEZ MD [facility] 12-17-2015 influenza virus vacc ine, unspecified formulation EDDIE SANCHEZ MD [facility] 04-15-2015 hepatitis A vaccine, pediatric dosage, unspecified formulation EDDIE SANCHEZ MD [facility] 04-03-2012 influenza virus vacc ine, unspecified formulation EDDIE SANCHEZ MD [facility] 12-14-2009 influenza virus vacc ine, unspecified formulation EDDIE SANCHEZ MD [facility] 11-16-2009 diphtheria, tetanus toxoids and acellular pertussis vaccine, unspecified formulation EDDIE SANCHEZ MD [facility] 11-16-2009 measles/mumps/rubell a virus vaccine EDDIE SANCHEZ MD [facility] 11-16-2009 pneumococcal conjuga te vaccine, 13 valent EDDIE SANCHEZ MD [facility] 11-16-2009 poliovirus vaccine, inactivated EDDIE SANCHEZ MD [facility] 11-16-2009 varicella virus vaccine ANTOINETTE SANCHZE MD [facility] 12-21-2006 haemophilus influenz ae type b vaccine, PRP-T conjugate EDDIE SANCHEZ MD [facility] 12-21-2006 varicella virus vaccine ANTOINETTE SANCHEZ MD [facility] 12-25-2005 haemophilus influenz ae type b vaccine, PRP-T conjugate EDDIE SANCHEZ MD [facility] 12-25-2005 measles/mumps/rubell a virus vaccine EDDIE SANCHEZ MD [facility] 12-25-2005 pneumococcal conjuga te vaccine, 13 valent EDDIE GURM MD [facility] 06-27-2005 haemophilus influenz ae type b vaccine, PRP-T conjugate EDDIE SANCHEZ MD [facility] 06-27-2005 hepatitis B pediatri c vaccine EDDIE SANCHEZ MD [facility] 06-27-2005 pneumococcal conjuga te vaccine, 13 valbethany SANCHEZ MD [facility] 06-27-2005 poliovirus vaccine, inactivated EDDIE SANCHEZ MD [facility] 05-01-2005 haemophilus influenz ae type b vaccine, PRP-T conjugate EDDIE SANCHEZ MD [facility] 05-01-2005 hepatitis B pediatri c vaccine EDDIE SANCHEZ MD [facility] 05-01-2005 pneumococcal conjuga te vaccine, 13 ghada SANCHEZ MD [facility] 05-01-2005 poliovirus vaccine, inactivated EDDIE SANCHEZ MD [facility] 03-31-2005 haemophilus influenz ae type b vaccine, PRP-T conjugate EDDIE SANCHEZ MD [facility] 03-31-2005 hepatitis B pediatri c vaccine EDDIE SANCHEZ MD [facility] 03-31-2005 pneumococcal conjuga te vaccine, 13 ghada SANCHEZ MD [facility] 03-31-2005 poliovirus vaccine, inactivated EDDIE SANCHEZ MD [facility] 2004 hepatitis B pediatri c vaccine EDDIE SANCHEZ MD [facility] Payers Date Payer Category Payer Self-pay [id number] 2022 Unknown [id number] 2019 Medicaid [id number] 2019 Unknown [id number] 2004 Unknown [id number] 2.16. [id number] 1983 Unknown [id number] 2.16.8 40.1.011932.3.579.2 1983 Unknown [id number] 2.16.8 40.1.768984.3.579.2. 1983 Unknown [id number] 2.16.8 40.1.274286.3.579.2. 1983 Unknown [id number] 2.16.8 40.1.699635.3.579.2.7 1983 Unknown [id number] 2.16.8 40.1.059918.3.579.2. 1983 Unknown [id number] 2.16.8 40.1.203967.3.579.2.7 1983 Unknown [id number] 2.16.8 40.1.481257.3.579.2. 1983 Unknown [id number] 2.16.8 40.1.799496.3.579.2.7 1983 Unknown [id number] 2.16.8 40.1.046581.3.579.2 1983 Unknown [id number] 2.16.8 40.1.471760.3.579.2.627 1983 Unknown [id number] 2.16.8 40.1.337980.3.579.2.627 1983 Unknown [id number] 2.16.8 40.1.557736.3.579.2.627 1983 Unknown [id number] 2.16.8 40.1.780067.3.579.2.627 1983 Unknown [id number] 2.16.8 40.1.761917.3.579.2.627 1983 Unknown [id number] 2.16.8 40.1.951575.3.579.2.627 1983 Unknown [id number] 2.16.8 40.1.034937.3.579.2.627 1983 Unknown [id number] 2.16.8 40.1.871257.3.579.2.627 Unknown [id number] 2.16.8 40.1.739130.3.579.2.462 Unknown [id number] 2.16.8 40.1.991355.3.579.2.462 Social History Date Type Detail Facility Start: 06-28-2019 Never smoked t obacco (finding) [facility] Start: 2004 Sex Assigned At Female A [facility] Sexual Orientation [facility] Start: 08-28-2018 Sex Female (finding) [facility] Tobacco smoking stat [facility] Unknown if ever smoked [facility] Work Phone: Functional Status Date Assessment Result Facility 07-21-2024 Functional Status Up ad aby [facility] 08-24-2023 Functional Status Independent [facility] 08-24-2023 Functional Status [facility] 08-23-2023 Functional Status [facility] 07-03-2023 Functional Status Current Home Treatments None [facility] 03-12-2023 Functional Status Standard Safet y ID band on, Call device within reach, Bed in low position, Wheels locked, Upper/Half-Length side-rails up, Bedside Cart Locked, Safety level maintained [facility] 02-16-2023 Functional Status Standard Safet y ID band on, Call device within reach, Bed in low position, Wheels locked, Upper/Half-Length side-rails up, Bedside Cart Locked, Safety level maintained [facility] 10-13-2022 Functional Status Awake [facility] 01-12-2022 Functional Status ID band on, Call device within reach, Bed in low position, Wheels locked, Bedside Cart Locked, Safety level maintained [facility] 10-03-2021 Functional Status Independent [facility] Mental Status Date Assessment Result Facility 07-21-2024 Mental Status Orientation Oriented x 4 [facility] 03-12-2023 Mental Status Orientation Oriented x 4 [facility] 02-16-2023 Mental Status Orientation Oriented x 4 [facility] 10-13-2022 Mental Status Oriented x 4 [facility] 01-12-2022 Mental Status Oriented x 4 [facility] 10-03-2021 Mental Status Orientation Oriented x 4 [facility] Clinical Notes 01-31-2021 to 07-23-2024 Note Date & Type Note Facility 07-23-2024 Note . MICRO - Microbiology PROCEDURE: Urine Culture [O1 *1] SOURCE: Urine BODY SITE: COLLECTED DATE/TIME: 07/21/2024 15:27 EDT RECEIVED DATE/TIME: 07/21/2024 18:51 EDT START DATE/TIME: 07/21/2024 18:51 EDT FREE TEXT SOURCE: FINAL REPORTS Final Report [] Verified Date/Time/Personnel: 07/23/2024 08:06 EDT >100,000 cfu/ml Escherichia coli PRELIMINARY REPORTS Preliminary Report [] Verified Date/Time/Personnel: 07/22/2024 09:41 EDT >100,000 cfu/ml Escherichia coli BLUE to follow Preliminary Report [] Verified Date/Time/Personnel: 07/21/2024 19:59 EDT Specimen received in lab. SUSCEPTIBILITY RESULTS Escherichia coli Antibiotic BLUE Dilut BLUE Inter Ampicillin <=8 Susceptible Ampicillin/ <=4/2 Susceptible Sulbactam Aztreonam <=4 Susceptible Cefazolin <=2 Susceptible Cefepime <=2 Susceptible Ceftolozane/ <=2 Susceptible Tazobactam Ciprofloxacin <=0.25 Susceptible Ertapenem <=0.5 Susceptible Gentamicin <=2 Susceptible ID Panel Not Not Applicable Applicable Imipenem <=1 Susceptible Levofloxacin <=0.5 Susceptible Meropenem <=1 Susceptible Minocycline <=4 Susceptible Nitrofurantoin <=32 Susceptible Trimethoprim/ >2/38 Resistant Sulfa Order Comments O1: Urine Culture Added by Discern Performing Locations *1: This test was performed at: [facility], [address] [place] [address], [facility] , [facility] 07-21-2024 Hospital Discharg e instructions Patient Education 07/21/2024 15:40:30 Anatomy of the Pediatric Urinary Tract Anatomy of the Pediatric Urinary Tract Your child s urinary tract helps get rid of the body s liquid waste (urine). Front view of urinary tract showing kidneys, ureters, and bladder. This system includes: Kidneys: A pair of organs that filter the blood of the waste, unused minerals, and water that make up urine. oCalyx: Small chambers in the kidneys that drain urine into the renal pelvis. oRenal pelvis: Where urine collects before flowing down the ureters. Ureters: A pair of tubes that carry urine from the kidneys to the bladder. Bladder: An organ that stores urine until the child is ready to release it. Sphincters: Ring-shaped bands of muscles. The urethral sphincters work together to hold in or release urine from the bladder. They close and tighten to hold and open and relax to release. oInternal sphincter: Muscle inside the bladder that holds urine in until it s ready to be released. oExternal sphincter: Muscle located just outside the bladder that holds urine in until it s ready to be released. Your child has some control over when this muscle is squeezed and closed or relaxed and open. Nerves: Signal when the bladder is filled with urine. They also tell the sphincter and bladder when it s time to empty the bladder. Urethra: Tube that carries urine from the bladder out of the body. [id number] [employer]. [address] [place] [address]. All rights reserved. This information is not intended as a substitute for professional medical care. Always follow your healthcare professional's instructions. 07/21/2024 15:29:46 Bladder Infection, Female (Adult) Bladder Infection, Female (Adult) Urine is normally doesn't have any bacteria in it. But bacteria can get into the urinary tract from the skin around the rectum. Or they can travel in the blood from elsewhere in the body. Once they are in your urinary tract, they can cause infection in the urethra (urethritis), the bladder (cystitis), or the kidneys (pyelonephritis). The most common place for an infection is in the bladder. This is called a bladder infection. This is one of the most common infections in women. Most bladder infections are easily treated. They are not serious unless the infection spreads to the kidney. The phrases bladder infection, UTI, and cystitis are often used to describe the same thing. But they are not always the same. Cystitis is an inflammation of the bladder. The most common cause of cystitis is an infection. Symptoms The infection causes inflammation in the urethra and bladder. This causes many of the symptoms. The most common symptoms of a bladder infection are: Pain or burning when urinating Having to urinate more often than usual Urgent need to urinate Only a small amount of urine comes out Blood in urine Abdominal discomfort. This is usually in the lower abdomen above the pubic bone. Cloudy urine Strong- or bad-smelling urine Unable to urinate (urinary retention) Unable to hold urine in (urinary incontinence) Fever Loss of appetite Confusion (in older adults) Causes Bladder infections are not contagious. You can't get one from someone else, from a toilet seat, or from sharing a bath. The most common cause of bladder infections is bacteria from the bowels. The bacteria get onto the skin around the opening of the urethra. From there, they can get into the urine and travel up to the bladder, causing inflammation and infection. This usually happens because of: Wiping improperly after urinating. Always wipe from front to back. Bowel incontinence Procedures such as having a catheter inserted Older age Not emptying your bladder. This can allow bacteria a chance to grow in your urine. Dehydration Constipation Sex Use of a diaphragm for control Treatment Bladder infections are diagnosed by a urine test. They are treated with antibiotics and usually clear up quickly without complications. Treatment helps prevent a more serious kidney infection. Medicines Medicines can help in the treatment of a bladder infection: Take antibiotics until they are used up, even if you feel better. It is important to finish them to make sure the infection has cleared. You can use acetaminophen or ibuprofen for pain, fever, or discomfort, unless another medicine was prescribed. If you have chronic liver or kidney disease, talk with your healthcare provider before using these medicines. Also talk with your provider if you've ever had a stomach ulcer or gastrointestinal bleeding, or are taking blood-thinner medicines. If you are given phenazopydridine to reduce burning with urination, it will cause your urine to become a bright orange color. This can stain clothing. Care and prevention These self-care steps can help prevent future infections: Drink plenty of fluids to prevent dehydration and flush out your bladder. Do this unless you must restrict fluids for other health reasons, or your doctor told you not to. Proper cleaning after going to the bathroom is important. Wipe from front to back after using the toilet to prevent the spread of bacteria. Urinate more often. Don't try to hold urine in for a long time. Wear loose-fitting clothes and cotton underwear. Avoid tight-fitting pants. Improve your diet and prevent constipation. Eat more fresh fruit and vegetables, and fiber, and less junk and fatty foods. Avoid sex until your symptoms are gone. Avoid caffeine, alcohol, and spicy foods. These can irritate your bladder. Urinate right after intercourse to flush out your bladder. If you use control pills and have frequent bladder infections, discuss it with your doctor. Follow-up care Call your healthcare provider if all symptoms are not gone after 3 days of treatment. This is especially important if you have repeat infections. If a culture was done, you will be told if your treatment needs to be changed. If directed, you can call to find out the results. If X-rays were done, you will be told if the results will affect your treatment. Call 911 Call 911 if any of the following occur: Trouble breathing Hard to wake up or confusion Fainting or loss of consciousness Rapid heart rate When to seek medical advice Call your healthcare provider right away if any of these occur: Fever of 100.4 F (38.0 C) or higher, or as directed by your healthcare provider Symptoms are not better by the third day of treatment Back or belly (abdominal) pain that gets worse Repeated vomiting, or unable to keep medicine down Weakness or dizziness Vaginal discharge Pain, redness, or swelling in the outer vaginal area (labia) [phone] [employer]. [address] [place] [address]. All rights reserved. This information is not intended as a substitute for professional medical care. Always follow your healthcare professional's instructions. Follow Up Care 07/21/2024 14:02:14 With:Go to emergency room if symptoms worsen Address:Unknown When:2-4 days With:VIKTORIA CHRISTIANSON APRN-LESLEY Address: [address] [place] [address]- [phone] When:2-4 days [facility] 07-21-2024 Note Discharge Instructions Thank you for allowing [facility] to assist you with your healthcare needs. The following is important discharge information regarding your hospital visit. Diagnosis from Today's Visit UTI symptoms What to Do Next Instructions from Your Care Team No qualifying data available. Post Acute Orders No qualifying data available. You Need to Schedule the Following Appointments Follow Up with Go to emergency room if symptoms worsen When:Within 2-4 days Follow Up with VIKTORIA CHRISTIANSON APRN-RIGGING UP WORKER When:Within 2-4 days Where:[address] [place] [phone] Allergies NKA Medications Please ask your primary doctor or pharmacist before taking any other medication not listed, including over the counter drugs, herbal medications, vitamins and or supplements as they may interact with your home medications. What How Much When Why Instructions Last Dose New cephalexin (cephalexin 500 mg oral tablet) 1 tab(s) by mouth Four (4) times a day Duration: 10 Days Printed Prescription Unchanged albuterol (albuterol MDI (90 mcg/ inh) CFC free inhalation aerosol) 2 puff(s) by inhalation Four (4) times a day as needed for as needed for wheezing Asthma Unchanged FLUoxetine (FLUoxetine 10 mg oral capsule) 1 cap by mouth Once a day Duration: 30 Days Please take this list to your next doctor s visit. Bring all medications you take, including over the counter medications, herbals and other supplements with you to your doctor s visit. Patients and families are reminded to discard old lists and to update any records with all medication providers or retail pharmacies. Medication Leaflets cephalexin (sef a BRANDEN in) What is the most important information I should know about cephalexin? You should not use this medicine if you are allergic to cephalexin or to similar antibiotics, such as Ceftin, Cefzil, Omnicef, and others. Tell your doctor if you are allergic to any drugs, especially penicillins or other antibiotics. What is cephalexin? Cephalexin is a cephalosporin (SEF a low spor in) antibiotic that is used to treat bacterial infections of the lungs, ear, skin, bones, bladder, and kidneys. Cephalexin is used to treat infections in adults and children who are at least 1 year old. Cephalexin may also be used for purposes not listed in this medication guide. What should I discuss with my healthcare provider before taking cephalexin? You should not use this medicine if you are allergic to cephalexin or any other cephalosporin antibiotic (cefdinir, cefadroxil, cefoxitin, cefprozil, ceftriaxone, cefuroxime, Omnicef, and others). Tell your doctor if you have ever had: an allergy to any drug (especially penicillin); liver or kidney disease; or intestinal problems, such as colitis. The liquid form of cephalexin may contain sugar. This may affect you if you have diabetes. Tell your doctor if you are or breast-feeding. How should I take cephalexin? Follow all directions on your prescription label and read all medication guides or instruction sheets. Use the medicine exactly as directed. Do not use cephalexin to treat any condition that has not been checked by your doctor. Measure liquid medicine carefully. Use the dosing syringe provided, or use a medicine dose-measuring device (not a kitchen spoon). Use this medicine for the full prescribed length of time, even if your symptoms quickly improve. Skipping doses can increase your risk of infection that is resistant to medication. Cephalexin will not treat a viral infection such as the flu or a common cold. Do not share cephalexin with another person, even if they have the same symptoms you have. This medicine can affect the results of certain medical tests. Tell any doctor who treats you that you are using cephalexin. Store the tablets and capsules at room temperature away from moisture, heat, and light. Store the liquid medicine in the refrigerator. Throw away any unused liquid after 14 days. What happens if I miss a dose? Take the medicine as soon as you can, but skip the missed dose if it is almost time for your next dose. Do not take two doses at one time. What happens if I overdose? Seek emergency medical attention or call the Poison Help line at . Overdose symptoms may include nausea, vomiting, stomach pain, diarrhea, and blood in your urine. What should I avoid while taking cephalexin? Antibiotic medicines can cause diarrhea, which may be a sign of a new infection. If you have diarrhea that is watery or bloody, call your doctor before using anti-diarrhea medicine. What are the possible side effects of cephalexin? Get emergency medical help if you have signs of an allergic reaction (hives, difficult breathing, swelling in your face or throat) or a severe skin reaction (fever, sore throat, burning eyes, skin pain, red or purple skin rash with blistering and peeling). Call your doctor at once if you have: severe stomach pain, diarrhea that is watery or bloody (even if it occurs months after your last dose); unusual tiredness, feeling light-headed or short of breath; easy bruising, unusual bleeding, purple or red spots under your skin; a seizure; pale skin, cold hands and feet; yellowed skin, dark colored urine; fever, weakness; or pain in your side or lower back, painful urination. Common side effects may include: diarrhea; nausea, vomiting; indigestion, stomach pain; or vaginal itching or discharge. This is not a complete list of side effects and others may occur. Call your doctor for medical advice about side effects. You may report side effects to FDA at 9-720-AEA-5295. What other drugs will affect cephalexin? Tell your doctor about all your other medicines, especially: metformin; or probenecid. This list is not complete. Other drugs may affect cephalexin, including prescription and qcxi-jpu-jnrcrqw medicines, vitamins, and herbal products. Not all possible drug interactions are listed here. Where can I get more information? Your pharmacist can provide more information about cephalexin. Remember, keep this and all other medicines out of the reach of children, never share your medicines with others, and use this medication only for the indication prescribed. Every effort has been made to ensure that the information provided by [employer]. ('[employer]') is accurate, up-to-date, and complete, but no guarantee is made to that effect. Drug information contained herein may be time sensitive. [employer] information has been compiled for use by healthcare practitioners and consumers in the [place] and therefore [employer] does not warrant that uses outside of the [place] are appropriate, unless specifically indicated otherwise. [employer] drug information does not endorse drugs, diagnose patients or recommend therapy. [employer] drug information is an informational resource designed to assist licensed healthcare practitioners in caring for their patients and/or to serve consumers viewing this service as a supplement to, and not a substitute for, the expertise, skill, knowledge and judgment of healthcare practitioners. The absence of a warning for a given drug or drug combination in no way should be construed to indicate that the drug or drug combination is safe, effective or appropriate for any given patient. [employer] does not assume any responsibility for any aspect of healthcare administered with the aid of information [employer] provides. The information contained herein is not intended to cover all possible uses, directions, precautions, warnings, drug interactions, allergic reactions, or adverse effects. If you have questions about the drugs you are taking, check with your doctor, nurse or pharmacist. Copyright 1557-8290 [employer]. Version: .. Revision Date: 10/04/2022. Education Materials Bladder Infection, Female (Adult) Urine is normally doesn't have any bacteria in it. But bacteria can get into the urinary tract from the skin around the rectum. Or they can travel in the blood from elsewhere in the body. Once they are in your urinary tract, they can cause infection in the urethra (urethritis), the bladder (cystitis), or the kidneys (pyelonephritis). The most common place for an infection is in the bladder. This is called a bladder infection. This is one of the most common infections in women. Most bladder infections are easily treated. They are not serious unless the infection spreads to the kidney. The phrases bladder infection, UTI, and cystitis are often used to describe the same thing. But they are not always the same. Cystitis is an inflammation of the bladder. The most common cause of cystitis is an infection. Symptoms The infection causes inflammation in the urethra and bladder. This causes many of the symptoms. The most common symptoms of a bladder infection are: Pain or burning when urinating Having to urinate more often than usual Urgent need to urinate Only a small amount of urine comes out Blood in urine Abdominal discomfort. This is usually in the lower abdomen above the pubic bone. Cloudy urine Strong- or bad-smelling urine Unable to urinate (urinary retention) Unable to hold urine in (urinary incontinence) Fever Loss of appetite Confusion (in older adults) Causes Bladder infections are not contagious. You can't get one from someone else, from a toilet seat, or from sharing a bath. The most common cause of bladder infections is bacteria from the bowels. The bacteria get onto the skin around the opening of the urethra. From there, they can get into the urine and travel up to the bladder, causing inflammation and infection. This usually happens because of: Wiping improperly after urinating. Always wipe from front to back. Bowel incontinence Procedures such as having a catheter inserted Older age Not emptying your bladder. This can allow bacteria a chance to grow in your urine. Dehydration Constipation Sex Use of a diaphragm for control Treatment Bladder infections are diagnosed by a urine test. They are treated with antibiotics and usually clear up quickly without complications. Treatment helps prevent a more serious kidney infection. Medicines Medicines can help in the treatment of a bladder infection: Take antibiotics until they are used up, even if you feel better. It is important to finish them to make sure the infection has cleared. You can use acetaminophen or ibuprofen for pain, fever, or discomfort, unless another medicine was prescribed. If you have chronic liver or kidney disease, talk with your healthcare provider before using these medicines. Also talk with your provider if you've ever had a stomach ulcer or gastrointestinal bleeding, or are taking blood-thinner medicines. If you are given phenazopydridine to reduce burning with urination, it will cause your urine to become a bright orange color. This can stain clothing. Care and prevention These self-care steps can help prevent future infections: Drink plenty of fluids to prevent dehydration and flush out your bladder. Do this unless you must restrict fluids for other health reasons, or your doctor told you not to. Proper cleaning after going to the bathroom is important. Wipe from front to back after using the toilet to prevent the spread of bacteria. Urinate more often. Don't try to hold urine in for a long time. Wear loose-fitting clothes and cotton underwear. Avoid tight-fitting pants. Improve your diet and prevent constipation. Eat more fresh fruit and vegetables, and fiber, and less junk and fatty foods. Avoid sex until your symptoms are gone. Avoid caffeine, alcohol, and spicy foods. These can irritate your bladder. Urinate right after intercourse to flush out your bladder. If you use control pills and have frequent bladder infections, discuss it with your doctor. Follow-up care Call your healthcare provider if all symptoms are not gone after 3 days of treatment. This is especially important if you have repeat infections. If a culture was done, you will be told if your treatment needs to be changed. If directed, you can call to find out the results. If X-rays were done, you will be told if the results will affect your treatment. Call 911 Call 911 if any of the following occur: Trouble breathing Hard to wake up or confusion Fainting or loss of consciousness Rapid heart rate When to seek medical advice Call your healthcare provider right away if any of these occur: Fever of 100.4 F (38.0 C) or higher, or as directed by your healthcare provider Symptoms are not better by the third day of treatment Back or belly (abdominal) pain that gets worse Repeated vomiting, or unable to keep medicine down Weakness or dizziness Vaginal discharge Pain, redness, or swelling in the outer vaginal area (labia) [id number] [employer]. [address] [place] [id number]. All rights reserved. This information is not intended as a substitute for professional medical care. Always follow your healthcare professional's instructions. Additional Information VACCINATE! IT SAVES LIVES! Members of the community who have not yet received the COVID-19 vaccine and would like to receive it can visit one of [facility] vaccine clinics. There are many vaccine clinic locations within the [facility]. For locations and available times, please visit [email or web address] It is important to note that some COVID mobile vaccine clinics are held outdoors and may be canceled in rainy or stormy conditions. To learn more about pediatric vaccinations (ages 5-11), we invite you to visit the [facility] webpage. [email or web address] To learn more about the COVID-19 vaccine, we invite you to visit the CDC website for a list of frequently asked questions. https://www.cdc.gov/coronavirus/ 2019-ncov/vaccines/faq.html [facility] Patient Portal Access Instructions: Stay connected with your healthcare team and access your personal medical information anytime with the [facility] Patient Portal. If you would like a full copy of your medical records please contact the [facility] Medical Records Department Sunday through Sunday between 8a.m. and 4:30p.m. Please follow the directions below to access the portal: 1.Access the email account you provided upon registration to the hospital.2.Look for an invitation email from [facility].3.Open the email and access the invitation link: Accept Invitation to [facility]4.Fill in the required gibson to create your account. Sign into [email or web address] with your username and password that you created in the above steps to stay up to date. You can then view a summary of results, a summary of your visits, and the ability to download your summaries to your computer or send the information securely to a physician. Remember that your healthcare information is confidential, so carefully consider who you will allow to register on the [facility] Patient Portal for access to your information. You can also access the [facility] Patient Portal on the [employer]. Simply click on Health Records under Health Data and then click on the [facility] logo. HOW TO SAFELY DISPOSE OF PRESCRIPTION MEDICATIONS Please use one of the following methods to safely dispose of your unused medications. 1.Use a drug disposal kit: the drug disposal pouch allows you to safely discard your old and unused drugs. Ask your nurse to give you one when you are discharged.2.Visit a local take-back location: Many local pharmacies and police departments have programs that collect old and unwanted prescription drugs. Call your local pharmacy or go to http://tuQuejaSuma.[employer]/5O0Lj5m to find one close to you.3.Make use of household items: Use cat litter or old coffee grounds to dispose medications if other options are not available. Mix your drugs with these household products, seal them in an airtight container and throw it into the garbage. Call [facility]: [phone] to be sure your drugs can be disposed of in this way. Some medicines may require a different approach.4.Never flush your medications down the toilet. IF YOU HAVE BEEN PRESCRIBED AN OPIOIDS FOR PAIN If you have been prescribed an opioid (such as hydrocodone, oxycodone or morphine), it is critical to understand the possible side effects and risks of opioid pain medications. Even when taken as directed, opioids can have several side effects including: Tolerance, meaning you might need to take more of a medication for the same pain relief. Nausea, vomiting and/or constipation. Sleepiness, dizziness, dry mouth, confusion, depression or itching. Physical dependence, meaning you have withdrawal symptoms when a medication is stopped ? this can develop within a few days. KNOW YOUR RESPONSIBILITIES It is important to know exactly how much and how often to take the opioid pain medications you are prescribed. Never take opioids in higher amounts or more often than prescribed. Do not combine opioids with alcohol or other drugs that cause drowsiness, such as benzodiazepines, also known as benzos, including diazepam and alprazolam, muscle relaxants or sleep aids. Never sell or share prescription opioids. This is illegal. Store opioids in a secure place and out of reach of others (including children, family, friends and visitors). The last page(s) of this document has been signed and retained as a CHART COPY Signatures Patient Education Materials Bladder Infection, Female (Adult) Medication Leaflets cephalexin My discharge plan and instructions have been reviewed and explained to me and I,MARCO BOSTON understand my current condition and have read and understand these discharge instructions. I have received a written copy of the plan/instructions. If I have questions, I am aware that I should contact my doctor. 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 These mood changes can occur right after giving , or they may occur many months after giving . blues or depression can be mild or severe. Additionally, depression can go away rather quickly, or it can be a long-term condition. CAUSES Raised hormone levels and the rapid drop in those levels are thought to be a main cause of depression and blues. A number of hormones change during and after . Estrogen and progesterone usually decrease right after delivery. The levels of thyroid hormone and various cortisol steroids also rapidly drop. Other factors that play a role in these mood changes include major life events and genetics. RISK FACTORS If you have any of the following risks for blues or depression, know what symptoms to watch out for during the period. Risk factors that may increase the likelihood of getting blues or depression include: Having a personal or family history of depression. Having depression while being . Having premenstrual mood issues or mood issues related to oral contraceptives. Having a lot of life stress. Having marital conflict. Lacking a social support network. Having health problems, such as diabetes. SIGNS AND SYMPTOMS Symptoms of blues include: Brief changes in mood, such as going from extreme happiness to sadness. Decreased concentration. Difficulty sleeping. Crying spells, tearfulness. Irritability. Anxiety. Symptoms of depression typically begin within the first month after giving . These symptoms include: Difficulty sleeping or excessive sleepiness. Marked weight loss. Agitation. Feelings of worthlessness. Lack of interest in activity or food. psychosis is a very serious condition and can be dangerous. Fortunately, it is rare. Displaying any of the following symptoms is cause for immediate medical attention. Symptoms of psychosis include: Hallucinations and delusions. Bizarre or disorganized behavior. Confusion or disorientation. DIAGNOSIS A diagnosis is made by an evaluation of your symptoms. There are no medical or lab tests that lead to a diagnosis, but there are various questionnaires that a health care provider may use to identify those with blues, depression, or psychosis. Often, a screening tool called the [place] Depression Scale is used to diagnose depression in the period. TREATMENT blues usually goes away on its own in 1 2 weeks. Social support is often all that is needed. You will be encouraged to get adequate sleep and rest. Occasionally, you may be given medicines to help you sleep. depression requires treatment because it can last several months or longer if it is not treated. Treatment may include individual or group therapy, medicine, or both to address any social, physiological, and psychological factors that may play a role in the depression. Regular exercise, a healthy diet, rest, and social support may also be strongly recommended. psychosis is more serious and needs treatment right away. Hospitalization is often needed. HOME CARE INSTRUCTIONS Get as much rest as you can. Exercise regularly. Some women find yoga and walking to be beneficial. Eat a balanced and nourishing diet. Do little things that you enjoy. Have a cup of tea, take a bubble bath, read your favorite magazine, or listen to your favorite music. Avoid alcohol. Ask for help with health care attorney, cooking, grocery shopping, or running errands as needed. Do not try to do everything. Talk to people close to you about how you are feeling. Get support from your partner, family members, and friends. Try to stay positive in how you think. Think about the things you are grateful for. Do not spend a lot of time alone. Only take jrko-lzf-knjyjhk or prescription medicine as directed by your health care provider. Keep all your appointments. Let your health care provider know if you have any concerns. SEEK MEDICAL CARE IF: You are having a reaction to or problems with your medicine. SEEK IMMEDIATE MEDICAL CARE IF: You have suicidal feelings. You think you may harm yourself or someone else. MAKE SURE YOU: Understand these instructions. Will watch your condition. Will get help right away if you are not doing well or get worse. Resource: [facility] Patient Information 2014 [employer]. This information is not intended to replace advice given to you by your health care provider. Make sure you discuss any questions you have with your health care provider. 08/23/2023 16:20:01 Care After Vaginal Delivery Care After Vaginal Delivery This sheet gives you information about how to care for yourself from the time you deliver your baby to up to 6 12 weeks after delivery ( period). Your health care provider may also give you more specific instructions. If you have problems or questions, contact your health care provider. Follow these instructions at home: Vaginal bleeding It is normal to have vaginal bleeding (lochia) after delivery. Wear a sanitary pad for vaginal bleeding and discharge. ?During the first week after delivery, the amount and appearance of lochia is often similar to a menstrual period. ?Over the next few weeks, it will gradually decrease to a dry, yellow-brown discharge. ?For most women, lochia stops completely by 4 6 weeks after delivery. Vaginal bleeding can vary from woman to woman. Change your sanitary pads frequently. Watch for any changes in your flow, such as: ?A sudden increase in volume. ?A change in color. ?Large blood clots. If you pass a blood clot from your vagina, save it and call your health care provider to discuss. Do not flush blood clots down the toilet before talking with your health care provider. Do not use tampons or douches until your health care provider says this is safe. If you are not , your period should return 6 8 weeks after delivery. If you are feeding your child breast milk only (exclusive ), your period may not return until you stop . Perineal care Keep the area between the vagina and the anus (perineum) clean and dry as told by your health care provider. Use medicated pads and pain-relieving sprays and creams as directed. If you had a cut in the perineum (episiotomy) or a tear in the vagina, check the area for signs of infection until you are healed. Check for: ?More redness, swelling, or pain. ?Fluid or blood coming from the cut or tear. ?Warmth. ?Pus or a bad smell. You may be given a squirt bottle to use instead of wiping to clean the perineum area after you go to the bathroom. As you start healing, you may use the squirt bottle before wiping yourself. Make sure to wipe gently. To relieve pain caused by an episiotomy, a tear in the vagina, or swollen veins in the anus (hemorrhoids), try taking a warm sitz bath 2 3 times a day. A sitz bath is a warm water bath that is taken while you are sitting down. The water should only come up to your hips and should cover your buttocks. Breast care Within the first few days after delivery, your breasts may feel heavy, full, and uncomfortable (breast engorgement). Milk may also leak from your breasts. Your health care provider can suggest ways to help relieve the discomfort. Breast engorgement should go away within a few days. If you are : ?Wear a bra that supports your breasts and fits you well. ?Keep your nipples clean and dry. Apply creams and ointments as told by your health care provider. ?You may need to use breast pads to absorb milk that leaks from your breasts. ?You may have uterine contractions every time you breastfeed for up to several weeks after delivery. Uterine contractions help your uterus return to its normal size. ?If you have any problems with , work with your health care provider or image consultant. If you are not : ?Avoid touching your breasts a lot. Doing this can make your breasts produce more milk. ?Wear a good-fitting bra and use cold packs to help with swelling. ?Do not squeeze out (express) milk. This causes you to make more milk. Intimacy and sexuality Ask your health care provider when you can engage in sexual activity. This may depend on: ?Your risk of infection. ?How fast you are healing. ?Your comfort and desire to engage in sexual activity. You are able to get after delivery, even if you have not had your period. If desired, talk with your health care provider about methods of control (contraception). Medicines Take ljay-wxz-dvrmwmq and prescription medicines only as told by your health care provider. If you were prescribed an antibiotic medicine, take it as told by your health care provider. Do not stop taking the antibiotic even if you start to feel better. Activity Gradually return to your normal activities as told by your health care provider. Ask your health care provider what activities are safe for you. Rest as much as possible. Try to rest or take a nap while your baby is sleeping. Eating and drinking Drink enough fluid to keep your urine pale yellow. Eat high-fiber foods every day. These may help prevent or relieve constipation. High-fiber foods include: ?Whole grain cereals and breads. ?Brown rice. ?Beans. ?Fresh fruits and vegetables. Do not try to lose weight quickly by cutting back on calories. Take your vitamins until your checkup or until your health care provider tells you it is okay to stop. Lifestyle Do not use any products that contain nicotine or tobacco, such as cigarettes and e-cigarettes. If you need help quitting, ask your health care provider. Do not drink alcohol, especially if you are . General instructions Keep all follow-up visits for you and your baby as told by your health care provider. Most women visit their health care provider for a checkup within the first 3 6 weeks after delivery. Contact a health care provider if: You feel unable to cope with the changes that your child brings to your life, and these feelings do not go away. You feel unusually sad or worried. Your breasts become red, painful, or hard. You have a fever. You have trouble holding urine or keeping urine from leaking. You have little or no interest in activities you used to enjoy. You have not breastfed at all and you have not had a menstrual period for 12 weeks after delivery. You have stopped and you have not had a menstrual period for 12 weeks after you stopped . You have questions about caring for yourself or your baby. You pass a blood clot from your vagina. Get help right away if: You have chest pain. You have difficulty breathing. You have sudden, severe leg pain. You have severe pain or cramping in your lower abdomen. You bleed from your vagina so much that you fill more than one sanitary pad in one hour. Bleeding should not be heavier than your heaviest period. You develop a severe headache. You faint. You have blurred vision or spots in your vision. You have bad-smelling vaginal discharge. You have thoughts about hurting yourself or your baby. If you ever feel like you may hurt yourself or others, or have thoughts about taking your own life, get help right away. You can go to the nearest emergency department or call: Your local emergency services (911 in the [place] A suicide crisis helpline, such as the National Suicide Prevention Lifeline at . This is open 24 hours a day. Summary The period of time right after you deliver your up to 6 12 weeks after delivery is called the period. Gradually return to your normal activities as told by your health care provider. Keep all follow-up visits for you and your baby as told by your health care provider. This information is not intended to replace advice given to you by your health care provider. Make sure you discuss any questions you have with your health care provider. Document Released: 12/17/2007 Document Revised: 02/22/2018 Document Reviewed: 12/03/2017 [employer] Patient Education 2020 [employer]. 08/23/2023 16:19:58 benefits both mom and baby It contains both antibodies that help protect your baby against viruses and bacteria that you have been exposed to or been vaccinated against and nutrition for your baby. This is especially important in the first 6 months when your baby is unable to receive most vaccinations as their immune system is immature. Even for the first two weeks of babies like helps babies get this important antibody rich breast milk called colostrum. Breast milk composition changes according to babys needs. Babies who are exclusively breastfed for the first 6 months of life have: 50% less ear infections 70% less risk of diarrheal illnesses 70% less risk of hospitalization with serious respiratory illness 60% reduction in gut damage seen in infants called necrotizing enterocolitis 50% less risk of SIDS ie, sudden infant syndrome 30% reduced risk of allergies, eczema 50% reduction of celiac disease 30% reduction of IBS 30% reduced risk of type I diabetes 40% reduced risk of type II diabetes 20% risk reduction of childhood leukemia 30% risk reduction of childhood obesity Breastfed babies have higher intelligence scores and are less likely to develop behavioral problems as the grow. The [place] [employer] and World Health Organization recommend exclusively the first 12-24 months before transitioning to alternative milk. benefits mom too. helps with weight loss and getting back to pre- weight. helps with blood loss after delivery. depression affects 15% of mothers, mothers tend to fernando better with their babies and are less likely to be affected by pp depression. also decreases your future risk of breast and ovarian cancer by about 30%. It also decreases the risk of type II diabetes Some women may not ovulate or menstruate while , especially if you breastfeed every 3 to 4 hours. This is a natural form of birthcontrol for some women. is cheap! The average cost of formula for one year is about $2,000. Who cant breastfeed? Mothers with HIV, active tuberculosis, HTLV, herpes outbreaks on the breast. Mothers suffering from active drug or alcohol addiction. Mothers on certain medications like radioactive iodine, sedatives, certain seizure medications, certain cold medications like those containing pseudoephedrine or those undergoing active chemotherapy treatment. Mothers with Hepatitis B or C with active viral loads and bleeding or cracked nipples. Mothers of babies with galactosemia or phenylketonuria or maple syrup urine disease. Mothers with inverted nipples or babies with cleft lips or palates may have difficulties with , but most may still be able to breastfeed with certain adaptations or with pumping. Patient with prior breast surgery, breast implants or reductions, or breast radiation or those with insufficient glandular tissue may struggle with low milk supply. If you struggle with low milk supply, be sure you are staying well hydrated. Breastfeed or pump more often, at least every 3-4 hours. You may want to try some OTC supplements like fenugreek. Some women notice healthy diet changes like eating plain oatmeal help. Handling and Storage of breastmilk: Room temperautre (up to 77F) up to 4 hours Refridgerator (below 40F) up to 4 days Freezer (0F) up to 6 months Deep freezer (-4F) up to 12 months Thawed breast milk in the fridge: use within 24 hours How do I breastfeed? During the few weeks of life baby will breastfeed A LOT! It is normal for them to clusterfeed frequently to help increase your milk supply. Typically your milk comes in 48-96 hours after . If you havent had milk production by day 5 you should call your doctor and consider seeing a image consultant. You should try to put baby to breast every 2 hours in the first weeks of life and offer each breast with each feed. Babies will typically have 8 to 12 feeds in the first few weeks. A typical nursing schedule for baby in the first weeks is 20-30 minutes every 2-3 hours. Some babies will drink every 1.5 hours and some will space out to every 3 or 4 hour. Breastfed babies, unlike formula fed babies do not increase the amount of milk they drink as they age as your milk changes with them. They drink about 1-1.5 oz of breast milk per hour or 4-5 oz every 3-4 hours. How do I know my baby is getting enough? Many women worry that their baby isnt getting enough, when in reality most women are producting enough. If you are concerned you should discuss with your metal treater. It is normal for breastfed babies to lose up to 10% of their weight while your milk comes in. Your baby should be back to their weight by 2 weeks of age. Babies typically gain 20-30 grams a day or 4-7 ounces a week for the first 4-6 months. If baby is having normal weight gain and having 6-8 wet diapers a day, there is little concern for low production. If you worried about babys milk transfer you may do a weighted feed with a metal treater, your obgyn or your image consultant. What are signs my baby isnt getting enough? If you baby never settles in between feeds, has low urine output or poor weight gain they may need supplementation. It is perfectly normal and okay to need to supplement with formula. Even some breast milk is beneficial for you and baby. However, may not work well for everyone- if it is causing you significant stress it may be time to switch to some or all formula. What are some reasons for low milk supply? Poor infant latch can cause difficulty with maintaining supply. If you are having continued nipple pain with feeding or concerns about supply you should be evaluated by a image consultant. Your baby isnt feeding enough. In the first few weeks baby should 8-12 times in 24 hours. You have inadequate breast tissue or have had a prior breast surgery. Your breast tissue develops with each , so even if you were unable to exclusively breastfeed with one , you may be able to in the future. You have a medical condition or take medications that decrease milk supply: retained placenta, abnromal hormone levels can prevent breast milk production. This is rare. You should avoid decongestants during as this is commonly used to suppress . I have low supply, what can help? is supply and demand so keep offering breast to baby as much as possible. Supplement only after offereing breast (if needed). Increasing hydration: especially water. Coconut water or coconut milk may be helpful for some women. Adequate nutrition. Some people notice a decrease in supply with any calorie cutting. Be sure to have a well balanced diet. Supplements: there is limited data on supplements in but some women may have increases with brewers yeast, goats rue, milk thistle, fenugreek (although some women notice a decrease as well) garlic, moringam, fennel. Studies have shown little to no increase with these supplements. Prescription medications: metoclopramide and domperidone have been used to induce in those with low prolactin. Domperidone is not currently available in the [place]. There is a risk of increased QT intervals and sudden cardiac with domperidone in women > 60 yo or with pre-existing heart conditions. Tardive dyskinesia or abnormal muscle movements have not been seen with doses used for (30-60 mg per day) side effects like dry mouth, cramping, headache may occur. Metoclopramide is avaiilable in the [place] but has highger rates of depression and tardive dyskinesia as well as cardiac effects. When do I start pumping? Unless you are from your baby or are having difficulty with milk supply, we do not recommend pumping in the first 3 weeks for most mothers as this can lead to an over supply of milk and increased risk of mastitis. If you are from your baby at all you should pump any time baby would feed. After 3 weeks when you milk is more established you may pump after every feed. Typically you will only get 0.25 to 1 oz total after baby has fed. You can save this milk up to feed later or freeze for when you are from baby or if you are going back to work. In the first few weeks you may use a passive ticket collector or usher like a haaka on the opposite side you are feeding on if you are having leakage during feeding and save this as well. Most people will need to pump for 10-20 minutes, but if you are replacing a feed you can stop pumping after milk stops flowing. If you are trying to increase milk supply you may try power pumping 1-2 times per day for a total of 40 minutes. (10 minute pump, 10 minute rest, 20 minute pump, 20 minute resut, 10 minute pump etc_as this simulates how baby cluster feeds. Helpful products for : lanolin or similar nipple butter- apply to nipples after every feed to prevent nipple chaffing. You do not need to wipe these off before your next feed. Breast warmers may help in the early weeks with any discomfort or help with let down, hot showers can also be helpful for discomfort. Vigorous breast massage should be avoided as this can cause tissue damage and worsen pain and clogged ducts. Gentle lymphatic massage can be used to help loosen any clogged ducts. Silverettes- silver nipple covers placed in between feeding can help with pain and discomfort Breastpads- available in disposable and non disposable options these can help with unintentional let down and leakage. Most women do not need to use these retirement but find them helpful in the first few weeks. Follow Up Care 08/23/2023 07:25:58 With:VIKTORIA MARINELLI Address: [address] [facility] [place] [address]- When:Within 2 Week(s) [facility] 08-23-2023 Evaluation + Plan note Extrac bc from: Title:History and Physical Author:FELISA BARTLETT MD Date:08/23/23 labor encouraged epidural vs IV pain medication for pain control due to high anxiety and inability to tolerate exam cefm, toco monitor closely discussed difficulty following labor progress and if any augmentation would be needed without continue home meds Future Scheduled Tests Laboratory* Type and Screen (AO) 01/03/23 * Type and Screen (AO) 07/05/23 [facility] 06-20-2024 Note AROM for moderate amount of clear fluid. Pt is comfortable. Cervix 8/100/-1. FHR category 1. Digitally Signed by ROSE MARY TY DO on 08/23/2023 01:34 PM [facility]06-20-2024 Note Date of Service 08/23/23 Chief Complaint ctx 8 pain History of Present Illness 17 yo G1 @ 39.5 by 8 week US presents with painful contractions since 299. No obstetrical problemsprior. complicated by teen and severe anxiety with vaginismus- cannot tolerate speculum or digital exams. Had to self swab for GBS. She declined anesthesia consult to discuss painrelief options in labor prior to delivery. Plans patch for contraception at 3 weeks Physical Exam Vitals and Measurements T: 37 C (Oral) TMIN: 36.6 C (Oral) TMAX: 37 C (Oral) HR: 92 (Monitored) RR: 18 BP: 108/68 SpO2: 99%HT: 157 cm WT: 56.8 kg BMI: 23.04 Weight Dosing Weight: 56.8 kg (08/23/23) General: well groomed, well developed female who appears stated age Neuro: alert and oriented CN II-XII grossly intact Psych: pleasant mood, normal affect HEENT: NC/AT EOMI, neck without thyromegaly. no cervical lymphadenopathy CV: S1/S2 No MRCG, RRR Chest: CTABL no WRR Abd: S/gravid SCE: declines Extremities: warm dry and intact, no clubbing, cyanosis or edema present. no rashes, varicosities, scars. no visible tattoos or piercings. cat I tracing toco q6-10 minutes Lab Results 08/22 10:24 WBC: 14.7 H Hgb: 11.8 L Hct: 35.9 L Platelet: 285 Neutrophil %: 85.6 H Prenatals: T&S A neg/neg CBC 9.7/12.7/37.5/277 RPR non reactive HIV ? Hep C ab non reactive Hep Bs Ag non reactive GC/CT negative Rubella immune Varicella immune ur cx: 10-50,000 normal urogenital slade CMP wnl TSH Pap NA Genetic testing 28 week labs CBC 9.3/11.3/33.2/287 1 hour OGCT 133 RPR non reactive 36 week labs GBS negative GC/CT negative rhogam received late / Imaging Results and Diagnostics 07/02: @ 32 weeks. s/v/1951g 46%le/15.9cm/147bpm/ant Assessment/Plan labor encouraged epidural vs IV pain medication for pain control due to high anxiety and inability to tolerate exam cefm, toco monitor closely discussed difficulty following labor progress and if any augmentation would be needed without continue home meds Problem List/Past Medical History Ongoing Anxiety and depression Bilateral thumb pain Coccygeal pain Contraception management Fatigue GERD (gastroesophageal reflux disease) Metrorrhagia Nausea Vitamin D deficiency Weakness Procedure/Surgical History Tonsillectomy and adenoidectomy; younger than age 12: 2010 Medications Home Medications (5) Active albuterol MDI (90 mcg/inh) CFC free inhalation aerosol 2 puff(s), PRN, Inhalation, QID Alive Gummies oral tablet, chewable 2 tab(s), Chewed, qDay aspirin 81 mg oral delayed release tablet 81 mg = 1 tab(s), Oral, Daily Colace 100 mg oral capsule 100 mg = 1 cap(s), PRN, Oral, BID ferrous sulfate 324 mg (65 mg elemental iron) oral delayed release tablet 324 mg = 1 tab(s), Oral, qDay Allergies NKA Social History Alcohol - Denies Alcohol Use, 05/21/2019 Use: Never., 06/28/2019 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 She lives in [place]., 07/19/2022 Exercise Exercise type: Walking. Days per week: 1-2 times/week., 07/19/2022 Home/Environment Domestic Concerns: None. Living situation: Home/Independent., 07/19/2022 Primary Machine Builder: Self, she lives with her boyfriend who is 20-year-old and his mother.., 01/23/2022 Nutrition/Health Type of diet: Regular. Appetite Good. Eating Difficulties None., 07/19/2022 Caffeine intake amount: none., 01/23/2022 Sexual Sexually active: Yes. First active at age: 15 Years. Current partners: 1. Self described orientation: Straight or heterosexual. History of sexual abuse: No. Gender Identity: Identifies as female., 07/19/2022 Substance Abuse - Denies Substance Abuse, 05/21/2019 Use: Never., 06/28/2019 Tobacco - Denies Tobacco Use, 05/21/2019 Nicotine Use: Never (less than 100 in lifetime)., 06/28/2019 Family History Family history is negative Immunizations diphtheria/tetanus/pertussis (DTaP) ped: 0 unknown unit (11/16/09) haemophilus b conjugate (PRP-T) vaccine: 0 unknown unit (12/21/06) haemophilus b conjugate (PRP-T) vaccine: 0 unknown unit (12/25/05) haemophilus b conjugate (PRP-T) vaccine: 0 unknown unit (06/27/05) haemophilus b conjugate (PRP-T) vaccine: 0 unknown unit (05/01/05) haemophilus b conjugate (PRP-T) vaccine: 0 unknown unit (03/31/05) hepatitis A pediatric vaccine: 0.5 unknown unit (09/16/16) hepatitis A pediatric vaccine: 0 unknown unit (04/15/15) hepatitis B pediatric vaccine: 0 unknown unit (06/27/05) hepatitis B pediatric vaccine: 0 unknown unit (05/01/05) hepatitis B pediatric vaccine: 0 unknown unit (03/31/05) hepatitis B pediatric vaccine: 0 unknown unit (04) Human Papillomavirus Quadval: 0.5 mL (01/06/21) Human Papillomavirus Quadval: 0.5 unknown unit (03/15/18) Human Papillomavirus Quadval: 0.5 unknown unit (09/16/16) measles/mumps/rubella virus vaccine: 0 unknown unit (11/16/09) measles/mumps/rubella virus vaccine: 0 unknown unit (12/25/05) meningococcal conjugate vaccine: 0.5 mL (01/06/21) meningococcal conjugate vaccine: 0.5 unknown unit (09/16/16) pneumococcal 13-valent conjugate vaccine: 0 unknown unit (11/16/09) pneumococcal 13-valent conjugate vaccine: 0 unknown unit (12/25/05) pneumococcal 13-valent conjugate vaccine: 0 unknown unit (06/27/05) pneumococcal 13-valent conjugate vaccine: 0 unknown unit (05/01/05) pneumococcal 13-valent conjugate vaccine: 0 unknown unit (03/31/05) poliovirus vaccine, inactivated: 0 unknown unit (11/16/09) poliovirus vaccine, inactivated: 0 unknown unit (06/27/05) poliovirus vaccine, inactivated: 0 unknown unit (05/01/05) poliovirus vaccine, inactivated: 0 unknown unit (03/31/05) tetanus/diphth/pertuss (Tdap) adult/adol: 0.5 mL (08/07/19) tetanus/diphth/pertuss (Tdap) adult/adol: 0.5 unknown unit (09/16/16) varicella virus vaccine: 0 unknown unit (11/16/09) varicella virus vaccine: 0 unknown unit (12/21/06) Code Status Code Status - Ordered -- 08/23/23 10:20:00 EDT, Full Code, Constant Order Digitally Signed by RACHAEL BARTLETT MD on 08/23/2023 12:53 PM [facility]06-20-2024 Anesthesiology Consult note Patient: MARCO BOSTON Age: 17 years Sex: Female : 2005 Associated Diagnoses: None Author: YANIQUE VICTOR Preoperative Information Time of last food or liquid consumption: 08/23/2023 11:38:00 Anesthesia history Patient's history: negative. Family's history: negative. Review of Systems Ear/Nose/Mouth/Throat: Negative. Respiratory: asthma. Cardiovascular: Negative. Gastrointestinal: Reflux. Genitourinary: Negative. Endocrine: Negative. Musculoskeletal: Negative. Integumentary: Negative. Neurologic: anxiety, depression, migraines. Health Status Allergies: Allergic Reactions (Selected) NKA, Allergies (1) ActiveSeverityReaction NKANone Documented Current medications: (Selected) Inpatient Medications Ordered Bicitra: 30 mL, Oral, AsDirected, PRN: Gastric Upset Brethine: 0.25 mg, 0.25 mL, Subcutaneous, AsDirected, PRN: Other (see order comments) Cytotec: 1,000 mcg, 5 tab(s), Rectal, Once, PRN: Other (see order comments) Hemabate: 250 mcg, 1 mL, Intramuscular, Once, PRN: Other (see order comments) LR 1,000 mL: 125 mL/hr, Intravenous LR 500 mL Bolus: 500 mL, IV Bolus, AsDirected, PRN: Other (see order comments) Methergine: 0.2 mg, 1 mL, Intramuscular, Once, PRN: Other (see order comments) Oxytocin for IV (mL/hr) 20 unit(s) + LR Premix Diluent 1,000 mL: 999 mL/hr, Intravenous Pitocin: 20 unit(s), 2 mL, Intramuscular, Once, PRN: Other (see order comments) Xylocaine HCl 1% injectable solution: 20 mg, 2 mL, Perineum, AsDirected, PRN: to perineal sutures Zofran: 4 mg, 2 mL, IV Push, q4h, PRN: Nausea tranexamic acid 1 g / 100 mL 0.7% NaCl PMX: 1 gram(s), 100 mL, 300 mL/hr, IV Piggyback, AsDirected,PRN: Other (see order comments) Prescriptions Prescribed Alive Gummies oral tablet, chewable: 2 tab(s), Chewed, qDay, 90 EA, 7 Refill(s) Colace 100 mg oral capsule: 100 mg, 1 cap(s), Oral, BID, PRN: as needed for constipation, 100 cap(s), 4 Refill(s) albuterol MDI (90 mcg/inh) CFC free inhalation aerosol: 2 puff(s), Inhalation, QID, PRN: as needed for wheezing, 1 EA, 0 Refill(s) aspirin 81 mg oral delayed release tablet: 81 mg, 1 tab(s), Oral, Daily, 30 tab(s), 7 Refill(s) ferrous sulfate 324 mg (65 mg elemental iron) oral delayed release tablet: 324 mg, 1 tab(s), Oral, qDay, please dispense what is covered by her insurance., 30 tab(s), 4 Refill(s), Medications (12) Active Scheduled: (0) Continuous: (2) Lactated Ringers 1,000 mL 1,000 mL, Intravenous, 125 mL/hr Oxytocin 20 units in Lactated Ringers 1000 mL 20 unit(s) + LR Premix Diluent 1,000 mL 1,000 mL, Intravenous, 999 mL/hr PRN: (10) carboprost 250 mcg/ml 1mL ampule 250 mcg 1 mL, Intramuscular, Once citric acid-sodium citrate 334 mg-500 mg/5 mL (30 mL) Betina UD 30 mL, Oral, AsDirected Lactated Ringers Injection 500 mL * Bolus * 500 mL, IV Bolus, AsDirected lidocaine 1% (MPF) 2 mL vial pf 20 mg 2 mL, Perineum, AsDirected methylergonovine 0.2 mg/mL (1 mL) ampule 0.2 mg 1 mL, Intramuscular, Once misoprostol 200 mcg tablet 1,000 mcg 5 tab(s), Rectal, Once ondansetron 2 mg/ 1 mL 2 mL INJ 4 mg 2 mL, IV Push, q4h oxytocin 10 units/mL 1 mL vial 20 unit(s) 2 mL, Intramuscular, Once terbutaline 1 mg/ml vial 0.25 mg 0.25 mL, Subcutaneous, AsDirected tranexamic acid PMX 1 gram(s) 100 mL, IV Piggyback, AsDirected Problem list: Medical Anxiety / SNOMED CT 57179664 / Confirmed Weakness / SNOMED CT 00205447 / Confirmed Fatigue / SNOMED CT 105274190 / Confirmed GERD (gastroesophageal reflux disease) / SNOMED CT 322037109 / Confirmed Metrorrhagia / SNOMED CT 121966010 / Confirmed Anxiety and depression / SNOMED CT 700888406 / Confirmed Nausea / SNOMED CT 5982908608 / Confirmed Coccygeal pain / SNOMED CT 400179463 / Confirmed Bilateral thumb pain / SNOMED CT 632984587 / Confirmed Well child check / SNOMED CT 186812923 / Confirmed Contraception management / SNOMED CT 134516518 / Confirmed / SNOMED CT 634145768 / Confirmed Vitamin D deficiency / SNOMED CT 38404156 / Confirmed, Active Problems (16) Anxiety Anxiety and depression Asthma Bilateral thumb pain Coccygeal pain Contraception management Ear ache Fatigue GERD (gastroesophageal reflux disease) Metrorrhagia Migraine Nausea Vitamin D deficiency Weakness Well child check Histories Past Medical History: No active or resolved past medical history items have been selected or recorded. Family History: Entire family history is negative. Procedure history: Tonsillectomy and adenoidectomy; younger than age 12 (25011) in 2010 at 4 Years. 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 07/03/2023 Domestic Concerns None Living situation: Home/Independent Nutrition/Health 07/03/2023 Caffeine intake amount: none 07/03/2023 Type of diet: Regular Appetite Good Eating Difficulties None Sexual 07/03/2023 Sexually active: Yes First active at age: 15 Years Current partners: 1 Self described orientation: Straight or heterosexual History of sexual abuse: No What is your current gender identity? (Check all that apply) Identifies as female Physical Examination Vital Signs 08/23/2023 12:13 EDT Heart Rate Monitored 92 bpm Respiratory Rate 18 br/min Systolic Blood Pressure Non-Invasive 108 mmHg Diastolic Blood Pressure Non-Invasive 68 mmHg 08/23/2023 12:05 EDT Heart Rate Monitored 107 bpm HI Systolic Blood Pressure Non-Invasive 96 mmHg Diastolic Blood Pressure Non-Invasive 55 mmHg LOW 08/23/2023 12:00 EDT Heart Rate Monitored 101 bpm HI Respiratory Rate 18 br/min Systolic Blood Pressure Non-Invasive 97 mmHg Diastolic Blood Pressure Non-Invasive 63 mmHg 08/23/2023 11:45 EDT Heart Rate Monitored 76 bpm Respiratory Rate 18 br/min Systolic Blood Pressure Non-Invasive 106 mmHg Diastolic Blood Pressure Non-Invasive 58 mmHg LOW 08/23/2023 10:43 EDT Temperature Oral 37 DegC Heart Rate Monitored 104 bpm HI Respiratory Rate 18 br/min Systolic Blood Pressure Non-Invasive 108 mmHg Diastolic Blood Pressure Non-Invasive 68 mmHg Reason For Taking VItal Signs In Error (In Error) 08/23/2023 7:30 EDT Temperature Oral 36.6 DegC Heart Rate Monitored 116 bpm HI Respiratory Rate 18 br/min Systolic Blood Pressure Non-Invasive 112 mmHg Diastolic Blood Pressure Non-Invasive 64 mmHg Vital Signs (last 24 hrs) Last Charted Temp Oral37 DegC (AUG 22 10:43) Heart Rate Imtfhkhpc12 bpm (AUG 22 12:13) UGX908 mmHg (AUG 22 12:13) DBP68 mmHg (AUG 22 12:13) BMI23.04 (AUG 22 07:51) Measurements from flowsheet : Measurements 08/23/2023 7:51 EDT Height 157 cm Percent Height for Age 16.90 % Height ZScore -0.96 Admission Weight 56.8 kg [place] Body Weight 49.67 kg BSA Admission 1.56 Body Mass Index 23.04 kg/m2 BMI (Body Mass Index) ZScore 0.45 BMI (Body Mass Index) Percentile 67.22 % Pain assessment: Pain Assessment 08/23/2023 7:30 EDT Primary Pain Intensity 8 Pain Scale Type 0-10 Pain scale . General: Alert and oriented. Airway: Normal temporomandibular joint mobility. Mallampati classification: I (soft palate, fauces, uvula, pillars visible). Head: Normocephalic. Dentition Evaluation: Own teeth. Neck: Supple. Respiratory: Lungs are clear to auscultation. Cardiovascular: Normal rate. Heart Sounds: Normal. Gastrointestinal: Soft. Musculoskeletal Normal range of motion. Integumentary: Intact. Neurologic: Alert, Oriented. Review / Management Results review: Labs (Last four charted values) WBC H 14.7(AUG 22) Hgb L 11.8(AUG 22) Hct L 35.9(AUG 22) Plt 285(AUG 22) , Lab results 08/23/2023 12:18 EDT Uterine Contraction Monitoring Method External toco Uterine Contraction Frequency 2 Uterine Contraction Duration 40-60 Uterine Contraction Intensity, Ext Palp Moderate Uterine Resting Tone, External Soft Uterine Activity Regular contractions Baby A FHR Baseline: 145 bpm FHR Baseline Variability: Moderate variability FHR Accelerations: Present FHR Deceleration: Present FHR Deceleration Description: Variable FHR Deceleration Intervention: IV Bolus, Turn to left side, Notify anesthesia provider 08/23/2023 12:13 EDT Heart Rate Monitored 92 bpm Respiratory Rate 18 br/min Systolic Blood Pressure Non-Invasive 108 mmHg Diastolic Blood Pressure Non-Invasive 68 mmHg Oxygen Therapy Room air Oxygen Saturation 99 % 08/23/2023 12:11 EDT Monitoring Annotations nurse in room, patient positioned changed 08/23/2023 12:05 EDT Heart Rate Monitored 107 bpm HI Systolic Blood Pressure Non-Invasive 96 mmHg Diastolic Blood Pressure Non-Invasive 55 mmHg LOW Oxygen Saturation 100 % 08/23/2023 12:00 EDT Heart Rate Monitored 101 bpm HI Respiratory Rate 18 br/min Systolic Blood Pressure Non-Invasive 97 mmHg Diastolic Blood Pressure Non-Invasive 63 mmHg Oxygen Therapy Room air Oxygen Saturation 100 % 08/23/2023 11:45 EDT Heart Rate Monitored 76 bpm Respiratory Rate 18 br/min Systolic Blood Pressure Non-Invasive 106 mmHg Diastolic Blood Pressure Non-Invasive 58 mmHg LOW Oxygen Therapy Room air Oxygen Saturation 97 % 08/23/2023 11:38 EDT Epidural Patient Position Side of bed, leaning forward with support Epidural Placed By YANIQUE VICTOR KENNEL HAND-SPECIAL EDUCATION ASSISTANT Epidural Test Dose Time 08/23/2023 11:48 Epidural Bolus, Anesthesia 08/23/2023 11:50 08/23/2023 11:00 EDT Uterine Contraction Monitoring Method External toco Uterine Contraction Frequency 2-4 Uterine Contraction Duration 70-80 Uterine Contraction Intensity, Ext Palp Mild Uterine Resting Tone, External Soft Uterine Activity Regular contractions Baby A FHR Baseline: 145 bpm FHR Baseline Variability: Moderate variability FHR Accelerations: Present FHR Deceleration: Absent 08/23/2023 10:54 EDT Monitoring Annotations Monitoring Annotations 08/23/2023 10:43 EDT Temperature Oral 37 DegC Heart Rate Monitored 104 bpm HI Respiratory Rate 18 br/min Systolic Blood Pressure Non-Invasive 108 mmHg Diastolic Blood Pressure Non-Invasive 68 mmHg Reason For Taking VItal Signs In Error (In Error) 08/23/2023 10:38 EDT Hand Right 08/23/2023 18 gauge Peripheral IV Activity: Insert new site Peripheral IV Dressing Condition: Clean, Dry, Intact Peripheral IV Line Status/Patency: Flushes easily Peripheral IV Site Condition: No complications 08/23/2023 10:36 EDT Monitoring Annotations patient sitting up in bed 08/23/2023 10:24 EDT WBC 14.7 10^3/mcL HI RBC 4.19 10^6/mcL LOW Hgb 11.8 G/dL LOW Hct 35.9 % LOW MCV 85.5 fL MCH 28.0 pg MCHC 32.8 G/dL LOW RDW 15.2 % HI Platelet 285 10^3/mcL MPV 7.9 fL Neutrophil % 85.6 % HI Lymphocyte % 9.1 % LOW Monocyte % 4.8 % Eosinophil % 0.0 % Basophil % 0.5 % Neutrophil, Absolute 12.6 10^3/mcL HI Lymphocyte, Absolute 1.3 10^3/mcL Monocyte, Absolute 0.7 10^3/mcL Eosinophil, Absolute 0.0 10^3/mcL Basophil, Absolute 0.1 10^3/mcL 08/23/2023 10:00 EDT Uterine Contraction Monitoring Method External toco Uterine Contraction Frequency 2-5 Uterine Contraction Duration 60-80 Uterine Contraction Intensity, Ext Palp Mild Uterine Resting Tone, External Soft Uterine Activity Regular contractions Baby A FHR Baseline: 145 bpm FHR Baseline Variability: Moderate variability FHR Accelerations: Present FHR Deceleration: Absent 08/23/2023 9:12 EDT Monitoring Annotations patient sleeping 08/23/2023 9:00 EDT Uterine Contraction Monitoring Method External toco Uterine Contraction Frequency 3-7 Uterine Contraction Duration 60-90 Uterine Contraction Intensity, Ext Palp Mild Uterine Resting Tone, External Soft Uterine Activity Irregular contractions Baby A FHR Baseline: 145 bpm FHR Baseline Variability: Moderate variability FHR Accelerations: Present FHR Deceleration: Present FHR Deceleration Description: Late X1 FHR Deceleration Intervention: Turn to left side 08/23/2023 8:00 EDT Uterine Contraction Monitoring Method External toco Uterine Contraction Frequency 5 Uterine Contraction Duration 60-90 Uterine Contraction Intensity, Ext Palp Mild Uterine Resting Tone, External Soft Uterine Activity Regular contractions Baby A FHR Baseline: 140 bpm FHR Baseline Variability: Moderate variability FHR Accelerations: Present FHR Deceleration: Absent FHR Monitoring Method: monitoring explained, External US transducer 08/23/2023 7:57 EDT Monitoring Annotations refusing cervical exam 08/23/2023 7:51 EDT Height 157 cm Percent Height for Age 16.90 % Height ZScore -0.96 Admission Weight 56.8 kg [place] Body Weight 49.67 kg BSA Admission 1.56 Body Mass Index 23.04 kg/m2 BMI (Body Mass Index) ZScore 0.45 BMI (Body Mass Index) Percentile 67.22 % Expected Outcome Live Status Yes Maternal Transport No Thoughts of Harming Others - History No Thoughts of Suicide - History No Emotional Abuse History Denies Physical Abuse History Denies Sexual Abuse Denies Advanced Directives No - refuses information Infectious Disease Symptoms Patient states no symptoms Infectious Disease Recent Exposure No Alcohol and Drug Use No Employee of Institutional Living No Health Care Employee No History of Exposure to TB No History of Positive Chest X-Ray for TB No History of Positive TB Skin Test No Homeless No Known Immunosuppression No Recent Immigrant No Resident of Institutional Living No Bloody Sputum No Fatigue No Fever No Loss of Appetite No Night Sweats No Persistent Cough > 3 Weeks No Weight Loss No Preferred Spoken Language Icelandic Preferred Written Language Icelandic Chief Complaint ctx 8/10 pain Accompanied by Significant other, Family member Information Given by Patient, Parent Patient's Current Physicians ARMANI Briones Emergency Contact Number Emergency Contact Number Mode of Transfer Private vehicle Prev Test Positive/Diagnosis w/COVID-19 No Current Quarantine/Isolated any Illness No Any Contact with Sick Animals/Birds No Traveled Anywhere in Last 30 Days No No Able To Drink Order Detail Yes Able To Sign Consents Order Detail Yes Code Status Order Detail Full code IV Order Detail No Dialysis Schedule Order Detail N/A Has Diabetes Order Detail No Isolation Precautions Order Detail None Nurse Collect Order Detail 0 Oxygen Order Detail No Order Detail Yes Prior Valve Replacement Order Detail No Transport Mode Order Detail Ambulatory Admission Note-Nursing Patient History OB ED Triage 08/23/2023 7:30 EDT Temperature Oral 36.6 DegC Heart Rate Monitored 116 bpm HI Respiratory Rate 18 br/min Systolic Blood Pressure Non-Invasive 112 mmHg Diastolic Blood Pressure Non-Invasive 64 mmHg Primary Pain Intensity 8 Pain Scale Type 0-10 Pain scale Oxygen Therapy Room air Baby A FHR Baseline: 145 bpm . Assessment and Plan [place] [employer] Anesthesiologists (ASA) physical status classification: Class II. Anesthetic Preoperative Plan Anesthetic technique: Epidural. Postoperative pain management: Per surgeon. Informed consent: signed by patient. Digitally Signed by YANIQUE VICTOR on 08/23/2023 12:30 PM [facility]06-12-2024 Hospital Discharge instructions Patient Education 08/15/2023 17:32:24 7 - Labor and Delivery Outpatient Instructions (CUSTOM) [facility] DELIV[facility] OUTPATIENT HOME-GOING INSTRUCTIONS _X_ You are to follow up with your physician in ___ days/weeks. ACTIVITY ___ Bedrest ___Activity as tolerated ___ No work/school for ___ days. ___Other PRESCRIPTION GIVEN ___Yes NAUSEA/VOMITING ___ Take small, frequent amounts of clear liquids. Avoid fruit juices and milk. ___ Increase fluid intake to a minimum of 8 ounces of fluid every hour while awake. ___ Soft diet. Rice, crackers, bananas, Jell-O, cooked carrots, applesauce. ___ [place] diet. Avoid caffeine, chocolate, alcohol, spiced/greasy foods. URINARY TRACT INFECTION ___ Drink 8-12 glasses of water every day. ___ Urinate frequently; do not limit fluids to reduce frequency of urination. ___ Call your physician if burning and frequency with urination returns after taking all your medication. ___ Call your physician if you have a temperature of 100.4 degrees Fahrenheit or higher. ___ Wipe from front to back. SIGNS OF PRE-ECLAMPSIA ___ Severe heartburn. ___ Persistent headache not relieved by Tylenol. ___ Increased in swelling of face, hands and feet. ___ Blurred vision, double vision, or spots in the eyes. ___ Persistent vomiting. ___ *Convulsions or seizures. LABOR ___ Restrict activity. ___ Drink 8-12 glasses of water every day. ___ Urinate frequently ___ Pelvic rest. No sexual intercourse/ Call your physician if you experience: ___ Increase in vaginal discharge, leaking fluid, or vaginal bleeding. ___ More than 4, 5, or 6 contractions in one hour. ___ Burning and frequency with urination. DECREASED MOVEMENT ___ Lie down on your left side, drink some fluids and relax. Count the movements. You need tohave 10 movements in 2 hours. ___ If you do not feel the 10 movements, call your physician. OTHER ___ After an exam you may experience some spotting or discharge. As long as it is not bright red and heavy like a period or continues to leak as if your water broke, it is to be expected. ___ LABOR Call your physician if you experience: ___ Painful uterine contractions every ___ minutes for ___ hours. ___A gush or continuous trickle of watery discharge. COME TO THE HOSPITAL AND CALL PHYSICIAN IF: ___ Your abdomen feels continually firm. ___ *Bleeding is bright red and enough to saturate a pad in one hour or less. *Call 911 or go to the nearest Emergency Room for assistance. Form [id number] D: 02/10 Document Released: 02/19/2006 Document Revised: 02/08/2012 Document Reviewed: 02/19/2006 ExitCare Patient Information 2012 [place]. Follow Up Care 08/15/2023 16:13:30 With:RACHAEL BARTLETT Address: [address] [place] [address] [facility] [place] [address]- [phone] Business (1) When:1-2 days [facility] 05-02-2024 Nurse Progress note patient tolerated rhogam injectio without signs or symptoms of a reaction Digitally Signed by Cally Mak RN on 07/05/2023 11:30 AM [facility]04-30-2024 Hospital Discharge instructions Patient Education 07/03/2023 03:04:52 7 - Labor and Delivery Outpatient Instructions (CUSTOM) [facility]IV[facility] OUTPATIENT HOME-GOING INSTRUCTIONS _X_ You are to follow up with your physician tomorrow. ACTIVITY ___ Bedrest __x_Activity as tolerated ___ No work/school for ___ days. ___Other PRESCRIPTION GIVEN ___Yes NAUSEA/VOMITING ___ Take small, frequent amounts of clear liquids. Avoid fruit juices and milk. ___ Increase fluid intake to a minimum of 8 ounces of fluid every hour while awake. ___ Soft diet. Rice, crackers, bananas, Jell-O, cooked carrots, applesauce. ___ [place] diet. Avoid caffeine, chocolate, alcohol, spiced/greasy foods. URINARY TRACT INFECTION ___ Drink 8-12 glasses of water every day. ___ Urinate frequently; do not limit fluids to reduce frequency of urination. ___ Call your physician if burning and frequency with urination returns after taking all your medication. ___ Call your physician if you have a temperature of 100.4 degrees Fahrenheit or higher. ___ Wipe from front to back. SIGNS OF PRE-ECLAMPSIA ___ Severe heartburn. ___ Persistent headache not relieved by Tylenol. ___ Increased in swelling of face, hands and feet. ___ Blurred vision, double vision, or spots in the eyes. ___ Persistent vomiting. ___ *Convulsions or seizures. LABOR ___ Restrict activity. ___ Drink 8-12 glasses of water every day. ___ Urinate frequently ___ Pelvic rest. No sexual intercourse/ Call your physician if you experience: __x_ Increase in vaginal discharge, leaking fluid, or vaginal bleeding. __x_ More than 4, 5, or 6 contractions in one hour. _x__ Burning and frequency with urination. DECREASED MOVEMENT ___ Lie down on your left side, drink some fluids and relax. Count the movements. You need tohave 10 movements in 2 hours. ___ If you do not feel the 10 movements, call your physician. OTHER _x__ After an exam you may experience some spotting or discharge. As long as it is not bright red and heavy like a period or continues to leak as if your water broke, it is to be expected. ___ LABOR Call your physician if you experience: ___ Painful uterine contractions every ___ minutes for ___ hours. _x__A gush or continuous trickle of watery discharge. COME TO THE HOSPITAL AND CALL PHYSICIAN IF: __x_ Your abdomen feels continually firm. _x__ *Bleeding is bright red and enough to saturate a pad in one hour or less. *Call 911 or go to the nearest Emergency Room for assistance. Form [id number] D: 02/10 Document Released: 02/19/2006 Document Revised: 02/08/2012 Document Reviewed: 02/19/2006 ExitCare Patient Information 2012 [place]. Follow Up Care 07/03/2023 02:03:05 With:Follow up with primary care provider Address:Unknown When: Unknown [facility] 01-10-2024 Note. MICRO - Microbiology PROCEDURE: Urine Culture [*1] SOURCE: Urine BODY SITE: COLLECTED DATE/TIME: 03/12/2023 13:40 EST RECEIVED DATE/TIME: 03/12/2023 18:52 EST START DATE/TIME: 03/12/2023 18:53 EST FREE TEXT SOURCE: FINAL REPORTS Final Report [] Verified Date/Time/Personnel: 03/14/2023 08:15 EST No growth at 48 hours. PRELIMINARY REPORTS Preliminary Report [] Verified Date/Time/Personnel: 03/13/2023 09:03 EST No growth to date Performing Locations *1: This test was performed at: [address], [facility])03-12-2023 Hospital Discharge instructions Patient Education 03/12/2023 14:42:48 Bladder Infection, Female (Adult) Bladder Infection, Female (Adult) Urine is normally doesn't have any bacteria in it. But bacteria can get into the urinary tract fromthe skin around the rectum. Or they can travel in the blood from elsewhere in the body. Once they are in your urinary tract, they can cause infection in the urethra (urethritis), the bladder (cystitis), or the kidneys (pyelonephritis). The most common place for an infection is in the bladder. This is called a bladder infection. This is one of the most common infections in women. Most bladder infections are easily treated. They are not serious unless the infection spreads to the kidney. The phrases bladder infection, UTI, and cystitis are often used to describe the same thing. But they are not always the same. Cystitis is an inflammation of the bladder. The most common cause of cystitis is an infection. Symptoms The infection causes inflammation in the urethra and bladder. This causes many of the symptoms. Themost common symptoms of a bladder infection are: Pain or burning when urinating Having to urinate more often than usual Urgent need to urinate Only a small amount of urine comes out Blood in urine Abdominal discomfort. This is usually in the lower abdomen above the pubic bone. Cloudy urine Strong- or bad-smelling urine Unable to urinate (urinary retention) Unable to hold urine in (urinary incontinence) Fever Loss of appetite Confusion (in older adults) Causes Bladder infections are not contagious. You can't get one from someone else, from a toilet seat, or from sharing a bath. The most common cause of bladder infections is bacteria from the bowels. The bacteria get onto the skin around the opening of the urethra. From there, they can get into the urine and travel up to thebladder, causing inflammation and infection. This usually happens because of: Wiping improperly after urinating. Always wipe from front to back. Bowel incontinence Procedures such as having a catheter inserted Older age Not emptying your bladder. This can allow bacteria a chance to grow in your urine. Dehydration Constipation Sex Use of a diaphragm for control Treatment Bladder infections are diagnosed by a urine test. They are treated with antibiotics and usually clear up quickly without complications. Treatment helps prevent a more serious kidney infection. Medicines Medicines can help in the treatment of a bladder infection: Take antibiotics until they are used up, even if you feel better. It is important to finish them tomake sure the infection has cleared. You can use acetaminophen or ibuprofen for pain, fever, or discomfort, unless another medicine was prescribed. If you have chronic liver or kidney disease, talk with your healthcare provider before using these medicines. Also talk with your provider if you've ever had a stomach ulcer or gastrointestinal bleeding, or are taking blood-thinner medicines. If you are given phenazopydridine to reduce burning with urination, it will cause your urine to become a bright orange color. This can stain clothing. Care and prevention These self-care steps can help prevent future infections: Drink plenty of fluids to prevent dehydration and flush out your bladder. Do this unless you must restrict fluids for other health reasons, or your doctor told you not to. Proper cleaning after going to the bathroom is important. Wipe from front to back after using the toilet to prevent the spread of bacteria. Urinate more often. Don't try to hold urine in for a long time. Wear loose-fitting clothes and cotton underwear. Avoid tight-fitting pants. Improve your diet and prevent constipation. Eat more fresh fruit and vegetables, and fiber, and less junk and fatty foods. Avoid sex until your symptoms are gone. Avoid caffeine, alcohol, and spicy foods. These can irritate your bladder. Urinate right after intercourse to flush out your bladder. If you use control pills and have frequent bladder infections, discuss it with your doctor. Follow-up care Call your healthcare provider if all symptoms are not gone after 3 days of treatment. This is especially important if you have repeat infections. If a culture was done, you will be told if your treatment needs to be changed. If directed, you cancall to find out the results. If X-rays were done, you will be told if the results will affect your treatment. Call 911 Call 911 if any of the following occur: Trouble breathing Hard to wake up or confusion Fainting or loss of consciousness Rapid heart rate When to seek medical advice Call your healthcare provider right away if any of these occur: Fever of 100.4 F (38.0 C) or higher, or as directed by your healthcare provider Symptoms are not better by the third day of treatment Back or belly (abdominal) pain that gets worse Repeated vomiting, or unable to keep medicine down Weakness or dizziness Vaginal discharge Pain, redness, or swelling in the outer vaginal area (labia) [id number] [employer]. [address] [place] [address], [place] [address]. All rights reserved. This information is not intended as a substitute for professional medical care. Always follow [facility] professional's instructions. 03/12/2023 14:42:40 Adapting to : Second Trimester Adapting to : Second Trimester Keep up the healthy habits you started in your first trimester. You might be a little more tired than normal. So plan your day wisely. Look at the tips below and choose the ones that suit your lifestyle. If you have any questions, check with your healthcare provider. If you work If you can, adjust your work with your employer to fit your needs. Try these tips: If you stand for long periods, find ways to do some tasks while sitting. Also, try to stand with 1 foot resting on a low stool or ledge. Shift your weight from foot to foot often. Wear low-heeled shoes. If you sit, keep your knees level with your hips. Rest your feet on a firm surface. Sit tall with support for your low back. If you work long hours, ask about adjusting your schedule. Try taking shorter breaks more often. When you travel The second trimester may be the best time for any travel. Talk to your healthcare provider about any special plans you may need to make. Always: Wear a seat belt. Fasten the lap part under your belly. Wear the shoulder part also. Take breaks often during long trips by car or plane. Move around to stretch your legs. Drink plenty of fluids on flights. The air in plane cabins is very dry. Avoid hot climates or high altitudes if you are not used to them. Avoid places where the food and water might make you sick. Make sure you are up-to-date on all immunizations, including the flu vaccine. This is especially important when traveling overseas. Taking time to relax Find time to rest and relax at work or at home: Take short time-outs daily. Do relaxation exercises. Breathe deeply during stressful times. Try not to take on too much. Plan tasks for times when you have the most energy. Take naps when you can. Or just sit and relax. After week 16, avoid lying on your back for more than a few minutes. Instead, lie on your side. Switch sides often. Continuing as lovers Unless your healthcare provider tells you otherwise, there is no reason to stop having sex now. Blood supply increases to the pelvic area in the second trimester. Because of this, sex might be more enjoyable. Try different positions and see what s best. Also, talk to your partner about any changes in desire. Spotting may happen after sex. Be sure to let your healthcare provider know if there is heavy bleeding. Keeping your environment safe You can still clean house and use scented products. Just take some simple precautions: Wear gloves when using cleaning fluids. Open windows to let in fresh air. Use a fan if you paint. Avoid secondhand smoke. Don t breathe fumes from nail salvadorean, hair spray, cleansers, or other chemicals. [id number] [employer]. [address] [place] [address], [place] [address]. All rights reserved. This information is not intended as a substitute for professional medical care. Always follow yourhealthcare professional's instructions. Follow Up Care 03/12/2023 12:51:56 With:Your OBGYN Address: When:2-4 days With:VIKTORIA CHRISTIANSON Address: [address] [place] [phone] When:2-4 days [facility] 01-08-2024 Emergency department Discharge summary Discharge Instructions Thank you for allowing [facility] to assist you with your healthcare needs. The following is importantdischarge information regarding your hospital visit. Diagnosis from Today's Visit Abdominal pain - 16wks Abdominal pain in UTI - Urinary tract infection What to Do Next Instructions from Your Care Team Discharge Return to Work, School, or Sports (Return to Work, School, or Sports) - Ordered -- 03/13/23, May return to: school, 03/12/23 14:43:00 EST Post Acute Orders No qualifying data available. You Need to Schedule the Following Appointments Follow Up with Your OBGYN When Within 2-4 days Where: Follow Up with VIKTORIA CHRISTIANSON APRN-LESLEY When Within 2-4 days Where: [address] [place] [id number] [phone] Allergies NKA Medications Please ask your primary doctor or pharmacist before taking any other medication not listed, including over the counter drugs, herbal medications, vitamins and or supplements as they may interact withyour home medications. What How Much When Why Instructions Last Dose New cephalexin (cephalexin 500 mg oral capsule) 1 cap by mouth Every 12 hours Duration: 7 Days Printed Prescription Unchanged albuterol (albuterol MDI (90 mcg/ inh) CFC free inhalation aerosol) 2 puff(s) by inhalation Four (4) times a day as needed for as needed for wheezing Asthma Unchanged aspirin (aspirin 81 mg oral delayed release tablet) 1 tab(s) by mouth Every day Unchanged diphenhydrAMINE (Unisom 25mg oral tablet) 1 tab(s) by mouth Daily at bedtime as needed for as needed for insomnia Unchanged multivitamin, (Alive Gummies oral tablet, chewable) 2 tab(s) Chewed Once a day Unchanged multivitamin, ( AD oral tablet) 1 tab(s) by mouth Every day Unchanged pyridoxine (pyridoxine 25 mg oral tablet) 1 tab(s) by mouth Every 6 hours Please take this list to your next doctor s visit. Bring all medications you take, including over the counter medications, herbals and other supplements with you to your doctor s visit. Patients and families are reminded to discard old lists and to update any records with all medication providers or retail pharmacies. Education Materials Bladder Infection, Female (Adult) Urine is normally doesn't have any bacteria in it. But bacteria can get into the urinary tract fromthe skin around the rectum. Or they can travel in the blood from elsewhere in the body. Once they are in your urinary tract, they can cause infection in the urethra (urethritis), the bladder (cystitis), or the kidneys (pyelonephritis). The most common place for an infection is in the bladder. This is called a bladder infection. This is one of the most common infections in women. Most bladder infections are easily treated. They are not serious unless the infection spreads to the kidney. The phrases bladder infection, UTI, and cystitis are often used to describe the same thing. But they are not always the same. Cystitis is an inflammation of the bladder. The most common cause of cystitis is an infection. Symptoms The infection causes inflammation in the urethra and bladder. This causes many of the symptoms. Themost common symptoms of a bladder infection are: Pain or burning when urinating Having to urinate more often than usual Urgent need to urinate Only a small amount of urine comes out Blood in urine Abdominal discomfort. This is usually in the lower abdomen above the pubic bone. Cloudy urine Strong- or bad-smelling urine Unable to urinate (urinary retention) Unable to hold urine in (urinary incontinence) Fever Loss of appetite Confusion (in older adults) Causes Bladder infections are not contagious. You can't get one from someone else, from a toilet seat, or from sharing a bath. The most common cause of bladder infections is bacteria from the bowels. The bacteria get onto the skin around the opening of the urethra. From there, they can get into the urine and travel up to thebladder, causing inflammation and infection. This usually happens because of: Wiping improperly after urinating. Always wipe from front to back. Bowel incontinence Procedures such as having a catheter inserted Older age Not emptying your bladder. This can allow bacteria a chance to grow in your urine. Dehydration Constipation Sex Use of a diaphragm for control Treatment Bladder infections are diagnosed by a urine test. They are treated with antibiotics and usually clear up quickly without complications. Treatment helps prevent a more serious kidney infection. Medicines Medicines can help in the treatment of a bladder infection: Take antibiotics until they are used up, even if you feel better. It is important to finish them tomake sure the infection has cleared. You can use acetaminophen or ibuprofen for pain, fever, or discomfort, unless another medicine was prescribed. If you have chronic liver or kidney disease, talk with your healthcare provider before using these medicines. Also talk with your provider if you've ever had a stomach ulcer or gastrointestinal bleeding, or are taking blood-thinner medicines. If you are given phenazopydridine to reduce burning with urination, it will cause your urine to become a bright orange color. This can stain clothing. Care and prevention These self-care steps can help prevent future infections: Drink plenty of fluids to prevent dehydration and flush out your bladder. Do this unless you must restrict fluids for other health reasons, or your doctor told you not to. Proper cleaning after going to the bathroom is important. Wipe from front to back after using the toilet to prevent the spread of bacteria. Urinate more often. Don't try to hold urine in for a long time. Wear loose-fitting clothes and cotton underwear. Avoid tight-fitting pants. Improve your diet and prevent constipation. Eat more fresh fruit and vegetables, and fiber, and less junk and fatty foods. Avoid sex until your symptoms are gone. Avoid caffeine, alcohol, and spicy foods. These can irritate your bladder. Urinate right after intercourse to flush out your bladder. If you use control pills and have frequent bladder infections, discuss it with your doctor. Follow-up care Call your healthcare provider if all symptoms are not gone after 3 days of treatment. This is especially important if you have repeat infections. If a culture was done, you will be told if your treatment needs to be changed. If directed, you cancall to find out the results. If X-rays were done, you will be told if the results will affect your treatment. Call 911 Call 911 if any of the following occur: Trouble breathing Hard to wake up or confusion Fainting or loss of consciousness Rapid heart rate When to seek medical advice Call your healthcare provider right away if any of these occur: Fever of 100.4 F (38.0 C) or higher, or as directed by your healthcare provider Symptoms are not better by the third day of treatment Back or belly (abdominal) pain that gets worse Repeated vomiting, or unable to keep medicine down Weakness or dizziness Vaginal discharge Pain, redness, or swelling in the outer vaginal area (labia) [id number] [employer]. [address] [place] [address]. All rights reserved. This information is not intended as a substitute for professional medical care. Always follow yourhealthcare professional's instructions. Adapting to : Second Trimester Keep up the healthy habits you started in your first trimester. You might be a little more tired than normal. So plan your day wisely. Look at the tips below and choose the ones that suit your lifestyle. If you have any questions, check with your healthcare provider. If you work If you can, adjust your work with your employer to fit your needs. Try these tips: If you stand for long periods, find ways to do some tasks while sitting. Also, try to stand with 1 foot resting on a low stool or ledge. Shift your weight from foot to foot often. Wear low-heeled shoes. If you sit, keep your knees level with your hips. Rest your feet on a firm surface. Sit tall with support for your low back. If you work long hours, ask about adjusting your schedule. Try taking shorter breaks more often. When you travel The second trimester may be the best time for any travel. Talk to your healthcare provider about any special plans you may need to make. Always: Wear a seat belt. Fasten the lap part under your belly. Wear the shoulder part also. Take breaks often during long trips by car or plane. Move around to stretch your legs. Drink plenty of fluids on flights. The air in plane cabins is very dry. Avoid hot climates or high altitudes if you are not used to them. Avoid places where the food and water might make you sick. Make sure you are up-to-date on all immunizations, including the flu vaccine. This is especially important when traveling overseas. Taking time to relax Find time to rest and relax at work or at home: Take short time-outs daily. Do relaxation exercises. Breathe deeply during stressful times. Try not to take on too much. Plan tasks for times when you have the most energy. Take naps when you can. Or just sit and relax. After week 16, avoid lying on your back for more than a few minutes. Instead, lie on your side. Switch sides often. Continuing as lovers Unless your healthcare provider tells you otherwise, there is no reason to stop having sex now. Blood supply increases to the pelvic area in the second trimester. Because of this, sex might be more enjoyable. Try different positions and see what s best. Also, talk to your partner about any changes in desire. Spotting may happen after sex. Be sure to let your healthcare provider know if there is heavy bleeding. Keeping your environment safe You can still clean house and use scented products. Just take some simple precautions: Wear gloves when using cleaning fluids. Open windows to let in fresh air. Use a fan if you paint. Avoid secondhand smoke. Don t breathe fumes from nail salvadorean, hair spray, cleansers, or other chemicals. [id number] [employer]. [address] [place] [address], [place] [address]. All rights reserved. This information is not intended as a substitute for professional medical care. Always follow yourhealthcare professional's instructions. Additional Information VACCINATE! IT SAVES LIVES! Members of the community who have not yet received the COVID-19 vaccine and would like to receive it can visit one of [facility] vaccine clinics. There are many vaccine clinic locations within the [facility]. For locations and available times, please visit www.[email or web address].[place].gov/. It is important to note that some COVID mobile vaccine clinics are held outdoors and may be canceled in rainy or stormy conditions. To learn more about pediatric vaccinations (ages 5-11), we invite you to visit the [facility] webpage. [email or web address]/[email or web address] [email or web address] learn more about the COVID-19 vaccine, we invite you to visit the CDC website for a list of frequently asked questions. https://www.cdc.gov/coronavirus/2019-ncov/vaccines/faq.html [facility] Patient Portal Access Instructions: Stay connected with your healthcare team and access your personal medical information anytime with the [facility] Patient Portal. If you would like a full copy of your medical records please contact the [facility] Medical Records Department Sunday through Sunday between 8a.m. and 4:30p.m. Please follow the directions below to access the portal: 1.Access the email account you provided upon registration to the [facility].2.Look for an invitation email from [facility].3.Open the email and access the invitation link: Accept Invitation to [facility].Fill in the required gibson to create your account. Sign into [email or web address] with your username and password that you created in the above steps to stay up to date. You can then view a summary of results, a summary of your visits, and the ability to download your summaries to your computer or send the information securely to a physician. Remember that your healthcare information is confidential, so carefully consider who you will allow to register on the [facility] Patient Portal for access to your information. You can also access the [facility] Patient Portal on the [employer]. Simply click on Health Records under [employer] and then click on the [employer] logo. HOW TO SAFELY DISPOSE OF PRESCRIPTION MEDICATIONS Please use one of the following methods to safely dispose of your unused medications. 1.Use a drug disposal kit: the drug disposal pouch allows you to safely discard your old and unuseddrugs. Ask your nurse to give you one when you are discharged.2.Visit a local take-back location: Many local pharmacies and police departments have programs that collect old and unwanted prescriptiondrugs. Call your local pharmacy or go to http://bit.[employer]/3R9Qa0i to find one close to you.3.Make use of household items: Use cat litter or old coffee grounds to dispose medications if other options arenot available. Mix your drugs with these household products, seal them in an airtight container andthrow it into the garbage. Call [facility]: [phone] to be sure your drugs can be disposed of in this way. Some medicines may require a different approach.4.Never flush your medications down the toilet. IF YOU HAVE BEEN PRESCRIBED AN OPIOIDS FOR PAIN If you have been prescribed an opioid (such as hydrocodone, oxycodone or morphine), it is critical to understand the possible side effects and risks of opioid pain medications. Even when taken as directed, opioids can have several side effects including: Tolerance, meaning you might need to take more of a medication for the same pain relief. Nausea, vomiting and/or constipation. Sleepiness, dizziness, dry mouth, confusion, depression or itching. Physical dependence, meaning you have withdrawal symptoms when a medication is stopped ? this can develop within a few days. KNOW YOUR RESPONSIBILITIES It is important to know exactly how much and how often to take the opioid pain medications you are prescribed. Never take opioids in higher amounts or more often than prescribed. Do not combine opioids with alcohol or other drugs that cause drowsiness, such as benzodiazepines, also known as benzos,including diazepam and alprazolam, muscle relaxants or sleep aids. Never sell or share prescriptionopioids. This is illegal. Store opioids in a secure place and out of reach of others (including children, family, friends and visitors). The last page(s) of this document has been signed and retained as a CHART COPY Signatures Patient Education Materials Bladder Infection, Female (Adult) Adapting to : Second Trimester Medication Leaflets My discharge plan and instructions have been reviewed and explained to me and I,MARCO BOSTON S understand my current condition and have read and understand these discharge instructions. I have received a written copy of the plan/instructions. If I have questions, I am aware that I should contact my doctor. Patient/Corrugator Helper Signature: Date/Time: Relationship to Patient: Witness Name/Signature: Date/Time: [facility]12-18-2023 Note. MICRO - Microbiology PROCEDURE: Urine Culture [*1] SOURCE: Urine BODY SITE: COLLECTED DATE/TIME: 02/16/2023 22:16 EST RECEIVED DATE/TIME: 02/17/2023 15:06 EST START DATE/TIME: 02/17/2023 15:07 EST FREE TEXT SOURCE: FINAL REPORTS Final Report [] Verified Date/Time/Personnel: 02/19/2023 07:22 EST No growth at 48 hours. PRELIMINARY REPORTS Preliminary Report [] Verified Date/Time/Personnel: 02/18/2023 09:57 EST No growth to date Performing Locations *1: This test was performed at: [facility], [address] [place] [address], [facility] , [facility]02-17-2023 Hospital Discharge instructions Patient Education 02/16/2023 22:17:49 Abdominal Pain, Early Abdominal Pain and Early The tests you had show that you are , but the exact cause of your pain isn t clear. Some pain and bleeding are common early in . Often they stop, and you can go on to have a normal and baby. Other times the pain or bleeding can be signs of a miscarriage or ectopicpregnancy. An ectopic is a very serious problem. At this time it is unclear if your will continue normally, if you will have a miscarriage, or if you could have an ectopic . Below is some information about this. Miscarriage At this time we don t know whether you will have a miscarriage, or if things will clear up and yourpregnancy will continue normally. We understand that this is emotionally difficult. There is littlewe can say to change the way you feel. But understand that miscarriages are common. About 1 or 2 out of every [address] Some end even before you know you are . This happens for a number of reasons, and usually we never figure out why. It s important you know that it is not your fault. It didn t happen because you did anything wrong. Having sex or exercising does not cause a miscarriage. These activities are usually safe unless youhave pain or bleeding or your doctor tells you to stop. Even minor falls won t cause a miscarriage.Miscarriages happen because things were not developing as they were supposed to. No medicine can prevent a miscarriage. Ectopic In a normal , the fertilized egg attaches to the wall of the womb (uterus). In an ectopic or tubal , the fertilized egg attaches outside the uterus, usually in the fallopian tube. Very rarely, the egg attaches to an ovary or somewhere else in the abdomen. An ectopic is much less common than a miscarriage, but it is very serious. The baby cannot survive, and as it growsit can rupture the tube. This can cause internal bleeding and even . Risk factors for an ectopic are: An ectopic in the past Pelvic inflammatory disease, or PID Endometriosis Smoking An IUD Additional tests Because we don t know what s causing your symptoms, you will need more tests to figure out what theproblem is. You may need the following. Ultrasound An ultrasound can usually find a normal as early as 4 to 5 weeks along. If the ultrasounddoes not show the baby inside the uterus, it means one of the following. You have a normal less than 4 weeks along You are having or recently had a miscarriage You have an ectopic Quantitative HCG This test measures the amount of a hormone in your blood. Comparing today's test result to a repeat test in 2 days will show whether you have a normal . Laparoscopy This is a type of surgery. The healthcare provider will put a tube with a light inside your belly (abdomen) to look directly at your pelvic organs. This test is used when it is not safe to wait 2 days for blood test results. Important information If you do have an ectopic , there is a small chance that the growing fetus can tear the fallopian tube. This can cause severe internal bleeding. If this happens, you may have: Sudden severe pain in your lower abdomen Vaginal bleeding Weakness, dizziness, and sometimes fainting If any of these symptoms occur: Call 911or return right away to the hospital. Don't drive yourself. Don't go to your healthcare provider's office or to a clinic. Go to the hospital. Home care Follow these guidelines to help care for yourself at home: Rest until your next exam. Don t do anything strenuous. Eat a light diet with foods that are easy to digest. Don t have sex until your healthcare provider says it s OK. Follow-up care Follow up with your healthcare provider, or as advised. If you were told to have a repeat blood test in 2 days, it s important to get it done. If you had an X-ray or ultrasound, a radiologist will review it. You will be told of any new findings that may affect your care. Call 911 Call 911 if you have any of these: Severe pain and very heavy bleeding Severe lightheadedness, passing out, or fainting Rapid heart rate Trouble breathing Confused or difficulty waking up When to seek medical advice Call your healthcare provider right away if any of these occur: The pain in your abdomen gets worse, either suddenly or gradually. You are dizzy or weak when you stand. You have heavy vaginal bleeding. This means soaking 1 pad an hour for 3 hours. You have vaginal bleeding for more than 5 days. You have repeated vomiting or diarrhea. The pain in your abdomen moves to the lower right. You have blood in your vomit or bowel movements. This will be dark red or black. You have a fever of 100.4 F (38 C) or higher, or as directed by your healthcare provider. [id number] [employer]. [address] [place] [address]. All rights reserved. This information is not intended as a substitute for professional medical care. Always follow yourhealthcare professional's instructions. 02/16/2023 22:17:44 Rib Contusion Rib Contusion A rib contusion is a bruise to one or more rib bones. It may cause pain, tenderness, swelling and apurplish discoloration. There may be a sharp pain while breathing. You will be assessed for other injuries. You will likely be given pain medicine. Rib contusions heal on their own, without further treatment. However, pain may take weeks to months to go away. Note that a small crack (fracture) in the rib may cause the same symptoms as a rib contusion. The small crack may not be seen on a chest X-ray. However, the conditions are managed in the same way. Home care Rest. Avoid heavy lifting, strenuous exertion, or any activity that causes pain. Ice the area to reduce pain and swelling. Put ice cubes in a plastic bag or use a cold pack. (Wrap the cold source in a thin towel. Do not place it directly on your skin.) Ice the injured area for 20minutes every 1 to 2 hours the first day. Continue with ice packs 3 to 4 times a day for the next 2days, then as needed for the relief of pain and swelling. Take any prescribed pain medicine as directed by your healthcare provider. If none was prescribed, take acetaminophen, ibuprofen, or naproxen to control pain. If you have a significant injury, you may be given a device called an incentive spirometer to keep your lungs healthy. Use as directed. Follow-up care Follow up with your healthcare provider during the next week or as directed. When to seek medical advice Call your healthcare provider for any of the following: Shortness of breath or trouble breathing Increasing chest pain with breathing Coughing Dizziness, weakness, or fainting New or worsening pain Fever of 100.4 F (38 C) or higher, or as directed by your healthcare provider [phone] [employer]. [address] [place] [address]. All rights reserved. This information is not intended as a substitute for professional medical care. Always follow yourhealthcare professional's instructions. Follow Up Care 02/16/2023 21:12:51 With:VIKTORIA CHRISTIANSON APRN-RIGGING UP WORKER Address: [address] [place] [address] [phone] When:2-4 days [facility] 12-15-2023 Emergency department Discharge summary Discharge Instructions Thank you for allowing [facility] to assist you with your healthcare needs. The following is importantdischarge information regarding your hospital visit. Diagnosis from Today's Visit Abdominal pain - What to Do Next Instructions from Your Care Team No qualifying data available. Post Acute Orders No qualifying data available. You Need to Schedule the Following Appointments Follow Up with VIKTORIA CHRISTIANSON APRN-RIGGING UP WORKER When Within 2-4 days Where: [address] [place] [address] [phone] Allergies NKA Medications Please ask your primary doctor or pharmacist before taking any other medication not listed, including over the counter drugs, herbal medications, vitamins and or supplements as they may interact withyour home medications. What How Much When Why Instructions Last Dose New cephalexin (cephalexin 500 mg oral capsule) 1 cap by mouth Every 12 hours Duration: 7 Days Printed Prescription Unchanged albuterol (albuterol MDI (90 mcg/ inh) CFC free inhalation aerosol) 2 puff(s) by inhalation Four (4) times a day as needed for as needed for wheezing Asthma Unchanged aspirin (aspirin 81 mg oral delayed release tablet) 1 tab(s) by mouth Every day Unchanged diphenhydrAMINE (Unisom 25mg oral tablet) 1 tab(s) by mouth Daily at bedtime as needed for as needed for insomnia Unchanged multivitamin, (Alive Gummies oral tablet, chewable) 2 tab(s) Chewed Once a day Unchanged multivitamin, ( AD oral tablet) 1 tab(s) by mouth Every day Unchanged pyridoxine (pyridoxine 25 mg oral tablet) 1 tab(s) by mouth Every 6 hours Please take this list to your next doctor s visit. Bring all medications you take, including over the counter medications, herbals and other supplements with you to your doctor s visit. Patients and families are reminded to discard old lists and to update any records with all medication providers or retail pharmacies. Education Materials Abdominal Pain and Early The tests you had show that you are , but the exact cause of your pain isn t clear. Some pain and bleeding are common early in . Often they stop, and you can go on to have a normal and baby. Other times the pain or bleeding can be signs of a miscarriage or ectopicpregnancy. An ectopic is a very serious problem. At this time it is unclear if your will continue normally, if you will have a miscarriage, or if you could have an ectopic . Below is some information about this. Miscarriage At this time we don t know whether you will have a miscarriage, or if things will clear up and yourpregnancy will continue normally. We understand that this is emotionally difficult. There is littlewe can say to change the way you feel. But understand that miscarriages are common. About 1 or 2 out of every [address] Some end even before you know you are . This happens for a number of reasons, and usually we never figure out why. It s important you know that it is not your fault. It didn t happen because you did anything wrong. Having sex or exercising does not cause a miscarriage. These activities are usually safe unless youhave pain or bleeding or your doctor tells you to stop. Even minor falls won t cause a miscarriage.Miscarriages happen because things were not developing as they were supposed to. No medicine can prevent a miscarriage. Ectopic In a normal , the fertilized egg attaches to the wall of the womb (uterus). In an ectopic or tubal , the fertilized egg attaches outside the uterus, usually in the fallopian tube. Very rarely, the egg attaches to an ovary or somewhere else in the abdomen. An ectopic is much less common than a miscarriage, but it is very serious. The baby cannot survive, and as it growsit can rupture the tube. This can cause internal bleeding and even . Risk factors for an ectopic are: An ectopic in the past Pelvic inflammatory disease, or PID Endometriosis Smoking An IUD Additional tests Because we don t know what s causing your symptoms, you will need more tests to figure out what theproblem is. You may need the following. Ultrasound An ultrasound can usually find a normal as early as 4 to 5 weeks along. If the ultrasounddoes not show the baby inside the uterus, it means one of the following. You have a normal less than 4 weeks along You are having or recently had a miscarriage You have an ectopic Quantitative HCG This test measures the amount of a hormone in your blood. Comparing today's test result to a repeat test in 2 days will show whether you have a normal . Laparoscopy This is a type of surgery. The healthcare provider will put a tube with a light inside your belly (abdomen) to look directly at your pelvic organs. This test is used when it is not safe to wait 2 days for blood test results. Important information If you do have an ectopic , there is a small chance that the growing fetus can tear the fallopian tube. This can cause severe internal bleeding. If this happens, you may have: Sudden severe pain in your lower abdomen Vaginal bleeding Weakness, dizziness, and sometimes fainting If any of these symptoms occur: Call 911or return right away to the hospital. Don't drive yourself. Don't go to your healthcare provider's office or to a clinic. Go to the hospital. Home care Follow these guidelines to help care for yourself at home: Rest until your next exam. Don t do anything strenuous. Eat a light diet with foods that are easy to digest. Don t have sex until your healthcare provider says it s OK. Follow-up care Follow up with your healthcare provider, or as advised. If you were told to have a repeat blood test in 2 days, it s important to get it done. If you had an X-ray or ultrasound, a radiologist will review it. You will be told of any new findings that may affect your care. Call 911 Call 911 if you have any of these: Severe pain and very heavy bleeding Severe lightheadedness, passing out, or fainting Rapid heart rate Trouble breathing Confused or difficulty waking up When to seek medical advice Call your healthcare provider right away if any of these occur: The pain in your abdomen gets worse, either suddenly or gradually. You are dizzy or weak when you stand. You have heavy vaginal bleeding. This means soaking 1 pad an hour for 3 hours. You have vaginal bleeding for more than 5 days. You have repeated vomiting or diarrhea. The pain in your abdomen moves to the lower right. You have blood in your vomit or bowel movements. This will be dark red or black. You have a fever of 100.4 F (38 C) or higher, or as directed by your healthcare provider. [id number] [employer]. [address] [place] [address]. All rights reserved. This information is not intended as a substitute for professional medical care. Always follow yourhealthcare professional's instructions. Rib Contusion A rib contusion is a bruise to one or more rib bones. It may cause pain, tenderness, swelling and apurplish discoloration. There may be a sharp pain while breathing. You will be assessed for other injuries. You will likely be given pain medicine. Rib contusions heal on their own, without further treatment. However, pain may take weeks to months to go away. Note that a small crack (fracture) in the rib may cause the same symptoms as a rib contusion. The small crack may not be seen on a chest X-ray. However, the conditions are managed in the same way. Home care Rest. Avoid heavy lifting, strenuous exertion, or any activity that causes pain. Ice the area to reduce pain and swelling. Put ice cubes in a plastic bag or use a cold pack. (Wrap the cold source in a thin towel. Do not place it directly on your skin.) Ice the injured area for 20minutes every 1 to 2 hours the first day. Continue with ice packs 3 to 4 times a day for the next 2days, then as needed for the relief of pain and swelling. Take any prescribed pain medicine as directed by your healthcare provider. If none was prescribed, take acetaminophen, ibuprofen, or naproxen to control pain. If you have a significant injury, you may be given a device called an incentive spirometer to keep your lungs healthy. Use as directed. Follow-up care Follow up with your healthcare provider during the next week or as directed. When to seek medical advice Call your healthcare provider for any of the following: Shortness of breath or trouble breathing Increasing chest pain with breathing Coughing Dizziness, weakness, or fainting New or worsening pain Fever of 100.4 F (38 C) or higher, or as directed by your healthcare provider [phone] [employer]. [address] [place] [address]. All rights reserved. This information is not intended as a substitute for professional medical care. Always follow yourhealthcare professional's instructions. Additional Information VACCINATE! IT SAVES LIVES! Members of the community who have not yet received the COVID-19 vaccine and would like to receive it can visit one of [facility] vaccine clinics. There are many vaccine clinic locations within the [facility]. For locations and available times, please visit [email or web address]/. It is important to note that some COVID mobile vaccine clinics are held outdoors and may be canceled in rainy or stormy conditions. To learn more about pediatric vaccinations (ages 5-11), we invite you to visit the [facility] webpage. https://[email or web address]/pages/[email or web address]-Lneirecjpqh-[email or web address]-[email or web address] stions.htmlTo learn more about the COVID-19 vaccine, we invite you to visit the CDC website for a list of frequently asked questions. https://www.cdc.gov/coronavirus/2019-ncov/vaccines/faq.html [facility] Patient Portal Access Instructions: Stay connected with your healthcare team and access your personal medical information anytime with the [facility] Patient Portal. If you would like a full copy of your medical records please contact the [facility] Medical Records Department Sunday through Sunday between 8a.m. and 4:30p.m. Please follow the directions below to access the portal: 1.Access the email account you provided upon registration to the hospital.2.Look for an invitation email from [facility].3.Open the email and access the invitation link: Accept Invitation to [facility]4.Fill in the required gibson to create your account. Sign into [email or web address] with your username and password that you created in the above steps to stay up to date. You can then view a summary of results, a summary of your visits, and the ability to download your summaries to your computer or send the information securely to a physician. Remember that your healthcare information is confidential, so carefully consider who you will allow to register on the [facility] Patient Portal for access to your information. You can also access the [facility] Patient Portal on the [employer]. Simply click on Health Records under [employer] and then click on the [facility] logo. HOW TO SAFELY DISPOSE OF PRESCRIPTION MEDICATIONS Please use one of the following methods to safely dispose of your unused medications. 1.Use a drug disposal kit: the drug disposal pouch allows you to safely discard your old and unuseddrugs. Ask your nurse to give you one when you are discharged.2.Visit a local take-back location: Many local pharmacies and police departments have programs that collect old and unwanted prescriptiondrugs. Call your local pharmacy or go to http://tuQuejaSuma.[employer]/0Q1El8l to find one close to you.3.Make use of household items: Use cat litter or old coffee grounds to dispose medications if other options arenot available. Mix your drugs with these household products, seal them in an airtight container andthrow it into the garbage. Call [facility]: [phone] to be sure your drugs can be disposed of in this way. Some medicines may require a different approach.4.Never flush your medications down the toilet. IF YOU HAVE BEEN PRESCRIBED AN OPIOIDS FOR PAIN If you have been prescribed an opioid (such as hydrocodone, oxycodone or morphine), it is critical to understand the possible side effects and risks of opioid pain medications. Even when taken as directed, opioids can have several side effects including: Tolerance, meaning you might need to take more of a medication for the same pain relief. Nausea, vomiting and/or constipation. Sleepiness, dizziness, dry mouth, confusion, depression or itching. Physical dependence, meaning you have withdrawal symptoms when a medication is stopped ? this can develop within a few days. KNOW YOUR RESPONSIBILITIES It is important to know exactly how much and how often to take the opioid pain medications you are prescribed. Never take opioids in higher amounts or more often than prescribed. Do not combine opioids with alcohol or other drugs that cause drowsiness, such as benzodiazepines, also known as benzos,including diazepam and alprazolam, muscle relaxants or sleep aids. Never sell or share prescriptionopioids. This is illegal. Store opioids in a secure place and out of reach of others (including children, family, friends and visitors). The last page(s) of this document has been signed and retained as a CHART COPY Signatures Patient Education Materials Abdominal Pain, Early Rib Contusion Medication Leaflets My discharge plan and instructions have been reviewed and explained to me and I,MARCO BOSTON S understand my current condition and have read and understand these discharge instructions. I have received a written copy of the plan/instructions. If I have questions, I am aware that I should contact my doctor. Patient/Corrugator Helper Signature: Date/Time: Relationship to Patient: Witness Name/Signature: Date/Time: [facility]11-03-2023 Note. MICRO - Microbiology PROCEDURE: Urine Culture [*1] SOURCE: Urine, Clean Catch BODY SITE: COLLECTED DATE/TIME: 01/03/2023 16:00 EDT RECEIVED DATE/TIME: 01/03/2023 19:30 EDT START DATE/TIME: 01/03/2023 19:30 EDT FREE TEXT SOURCE: FINAL REPORTS Final Report [] Verified Date/Time/Personnel: 01/05/2023 07:52 EDT 10,000 - 50,000 cfu/ml Mixed growth consistent with normal urogenital slade. PRELIMINARY REPORTS Preliminary Report [] Verified Date/Time/Personnel: 01/04/2023 09:47 EDT No growth to date Performing Locations *1: This test was performed at: [facility], [address] [place] [address], [phone] , [facility]01-03-2023 Evaluation + Plan note Future Scheduled Tests Laboratory* Type and Screen (AO) 01/03/23 * Type and Screen (AO) 07/05/23 Radiology* XR Finger Thumb 3 Views Left 08/24/22 * XR Finger Thumb 3 Views Right 08/24/22 [facility] 08-11-2023 Hospital Discharge instructions Patient Education 10/13/2022 06:58:06 Finger Contusion Finger Contusion You have a contusion. This is also called a bruise. There is swelling and some bleeding under the skin, but no broken bones. This injury generally takes a few days to a few weeks to heal. During thattime, the bruise will typically change in color from reddish, to purple-blue, to greenish-yellow, then to yellow-brown. A finger contusion may be treated with a splint or ayden tape (taping the injured finger to the onenext to it for support). Minor contusions likely will need no other treatment. Home care Elevate the hand to reduce pain and swelling. As much as possible, sit or lie down with the hand raised about the level of your heart. This is especially important during the first 48 hours. Ice the finger to help reduce pain and swelling. Wrap a cold source (ice pack or ice cubes in a plastic bag) in a thin towel. Apply to the bruised finger for 20 minutes every 1 to 2 hours the first day. Continue this 3 to 4 times a day until the pain and swelling goes away. If ayden tape was applied and it becomes wet or dirty, change it. You may replace it with paper, plastic, or cloth tape. Before taping, put a thin strip of cotton or gauze between the fingers to absorb sweat. This will help prevent any breakdown of skin or fungal infections. Unless another medicine was prescribed, you can take acetaminophen, ibuprofen, or naproxen to control pain. (If you have chronic liver or kidney disease or ever had a stomach ulcer or gastrointestinal bleeding, talk with your doctor before using these medicines.) Follow up Follow up with your healthcare provider, or as advised. Call if you are not improving within 1 to 2weeks. When to seek medical advice Call your healthcare provider right away if you have any of the following: Increased pain or swelling Hand or arm becomes cold, blue, numb or tingly Signs of infection: Warmth, drainage, or increased redness or pain around the bruise Inability to move the injured finger or hand Frequent bruising for unknown reasons Your fingernail becomes raised and it appears that there is blood accumulating under the nail. Thismay need to be drained. [phone] [employer]. [address] [place] [address]. All rights reserved. This information is not intended as a substitute for professional medical care. Always follow yourhealthcare professional's instructions. Follow Up Care 10/13/2022 06:09:21 With:VIKTORIA CHRISTIANSON APRN-RIGGING UP WORKER Address: [address] [place] [phone] When:2-4 days [facility] 08-11-2023 Note Discharge Instructions Thank you for allowing [facility] to assist you with your healthcare needs. The following is importantdischarge information regarding your hospital visit. Diagnosis from Today's Visit Finger pain-swelling Injury of finger of left hand What to Do Next Instructions from Your Care Team No qualifying data available. Post Acute Orders No qualifying data available. You Need to Schedule the Following Appointments Follow Up with VIKTORIA CHRISTIANSON APRN-LESLEY When Within 2-4 days Where: [address] [place] [address] [phone] Allergies NKA Medications Please ask your primary doctor or pharmacist before taking any other medication not listed, including over the counter drugs, herbal medications, vitamins and or supplements as they may interact withyour home medications. What How Much When Why Instructions Last Dose Unchanged albuterol (albuterol MDI (90 mcg/ inh) CFC free inhalation aerosol) 2 puff(s) by inhalation Four (4) times a day as needed for as needed for wheezing Asthma Unchanged ethinyl estradiol-levonorgestrel (Twirla 120 mcg-30 mcg transdermal film) 1 film Topical Every week Please take this list to your next doctor s visit. Bring all medications you take, including over the counter medications, herbals and other supplements with you to your doctor s visit. Patients and families are reminded to discard old lists and to update any records with all medication providers or retail pharmacies. Education Materials Finger Contusion You have a contusion. This is also called a bruise. There is swelling and some bleeding under the skin, but no broken bones. This injury generally takes a few days to a few weeks to heal. During thattime, the bruise will typically change in color from reddish, to purple-blue, to greenish-yellow, then to yellow-brown. A finger contusion may be treated with a splint or ayden tape (taping the injured finger to the onenext to it for support). Minor contusions likely will need no other treatment. Home care Elevate the hand to reduce pain and swelling. As much as possible, sit or lie down with the hand raised about the level of your heart. This is especially important during the first 48 hours. Ice the finger to help reduce pain and swelling. Wrap a cold source (ice pack or ice cubes in a plastic bag) in a thin towel. Apply to the bruised finger for 20 minutes every 1 to 2 hours the first day. Continue this 3 to 4 times a day until the pain and swelling goes away. If ayden tape was applied and it becomes wet or dirty, change it. You may replace it with paper, plastic, or cloth tape. Before taping, put a thin strip of cotton or gauze between the fingers to absorb sweat. This will help prevent any breakdown of skin or fungal infections. Unless another medicine was prescribed, you can take acetaminophen, ibuprofen, or naproxen to control pain. (If you have chronic liver or kidney disease or ever had a stomach ulcer or gastrointestinal bleeding, talk with your doctor before using these medicines.) Follow up Follow up with your healthcare provider, or as advised. Call if you are not improving within 1 to 2weeks. When to seek medical advice Call your healthcare provider right away if you have any of the following: Increased pain or swelling Hand or arm becomes cold, blue, numb or tingly Signs of infection: Warmth, drainage, or increased redness or pain around the bruise Inability to move the injured finger or hand Frequent bruising for unknown reasons Your fingernail becomes raised and it appears that there is blood accumulating under the nail. Thismay need to be drained. [phone] [employer]. [address] [place], [place] [id number]. All rights reserved. This information is not intended as a substitute for professional medical care. Always follow yourhealthcare professional's instructions. Additional Information VACCINATE! IT SAVES LIVES! Members of the community who have not yet received the COVID-19 vaccine and would like to receive it can visit one of [facility] vaccine clinics. There are many vaccine clinic locations within the [facility]. For locations and available times, please visit [email or web address]/. It is important to note that some COVID mobile vaccine clinics are held outdoors and may be canceled in rainy or stormy conditions. To learn more about pediatric vaccinations (ages 5-11), we invite you to visit the [facility] webpage. https://[email or web address]/pages/6363-Iixtz-Gvmrtqsytsl-Fnaqoxkagh-Uviwm-Hzo stions.htmlTo learn more about the COVID-19 vaccine, we invite you to visit the CDC website for a list of frequently asked questions. https://www.cdc.gov/coronavirus/2019-ncov/vaccines/faq.html [facility] Patient Portal Access Instructions: Stay connected with your healthcare team and access your personal medical information anytime with the [facility] Patient Portal. If you would like a full copy of your medical records please contact the [facility] Medical Records Department Sunday through Sunday between 8a.m. and 4:30p.m. Please follow the directions below to access the portal: 1.Access the email account you provided upon registration to the [facility].2.Look for an invitation email from [facility].3.Open the email and access the invitation link: Accept Invitation to [facility]4.Fill in the required gibson to create your account. Sign into [email or web address] with your username and password that you created in the above steps to stay up to date. You can then view a summary of results, a summary of your visits, and the ability to download your summaries to your computer or send the information securely to a physician. Remember that your healthcare information is confidential, so carefully consider who you will allow to register on the [facility] Patient Portal for access to your information. You can also access the [facility] Patient Portal on the [employer]. Simply click on Health Records under [employer] and then click on the [facility] logo. HOW TO SAFELY DISPOSE OF PRESCRIPTION MEDICATIONS Please use one of the following methods to safely dispose of your unused medications. 1.Use a drug disposal kit: the drug disposal pouch allows you to safely discard your old and unuseddrugs. Ask your nurse to give you one when you are discharged.2.Visit a local take-back location: Many local pharmacies and police departments have programs that collect old and unwanted prescriptiondrugs. Call your local pharmacy or go to http://[email or web address] to find one close to you.3.Make use of household items: Use cat litter or old coffee grounds to dispose medications if other options arenot available. Mix your drugs with these household products, seal them in an airtight container andthrow it into the garbage. Call [facility]: [phone] to be sure your drugs can be disposed of in this way. Some medicines may require a different approach.4.Never flush your medications down the toilet. IF YOU HAVE BEEN PRESCRIBED AN OPIOIDS FOR PAIN If you have been prescribed an opioid (such as hydrocodone, oxycodone or morphine), it is critical to understand the possible side effects and risks of opioid pain medications. Even when taken as directed, opioids can have several side effects including: Tolerance, meaning you might need to take more of a medication for the same pain relief. Nausea, vomiting and/or constipation. Sleepiness, dizziness, dry mouth, confusion, depression or itching. Physical dependence, meaning you have withdrawal symptoms when a medication is stopped ? this can develop within a few days. KNOW YOUR RESPONSIBILITIES It is important to know exactly how much and how often to take the opioid pain medications you are prescribed. Never take opioids in higher amounts or more often than prescribed. Do not combine opioids with alcohol or other drugs that cause drowsiness, such as benzodiazepines, also known as benzos,including diazepam and alprazolam, muscle relaxants or sleep aids. Never sell or share prescriptionopioids. This is illegal. Store opioids in a secure place and out of reach of others (including children, family, friends and visitors). The last page(s) of this document has been signed and retained as a CHART COPY Signatures Patient Education Materials Finger Contusion Medication Leaflets My discharge plan and instructions have been reviewed and explained to me and I,MARCO BOSTON S understand my current condition and have read and understand these discharge instructions. I have received a written copy of the plan/instructions. If I have questions, I am aware that I should contact my doctor. Patient/Corrugator Helper Signature: Date/Time: Relationship to Patient: Witness Name/Signature: Date/Time: [facility]11-11-2022 Hospital Discharge instructions Patient Education 01/12/2022 22:37:23 Head Injury (Adult) Head Injury (Adult) You have a head injury. It does not appear serious at this time. But symptoms of a more serious problem, such as a mild brain injury (concussion) or bruising or bleeding in the brain, may appear later. For this reason, you or someone caring for you will need to watch for the symptoms listed below. Once you re home, also be sure to follow any care instructions you re given. Home care Watch for the following symptoms Seek emergency medical care if you have any of these symptoms over the next hours to days: Headache Nausea or vomiting Dizziness Sensitivity to light or noise Unusual sleepiness or grogginess Trouble falling asleep Personality changes Vision changes Memory loss Confusion Trouble walking or clumsiness Loss of consciousness (even for a short time) Inability to be awakened Stiff neck Weakness or numbness in any part of the body Seizures General care If you were prescribed medicines for pain, use them as directed. Note: Don t take other medicines for pain without talking to your provider first. To help reduce swelling and pain, apply a cold source to the injured area for up to 20 minutes at atime. Do this as often as directed. Use a cold pack or bag of ice wrapped in a thin towel. Never apply a cold source directly to the skin. If you have cuts or scrapes as a result of your head injury, care for them as directed. For the next 24 hours (or longer, if instructed): oDon t drink alcohol or use sedatives or other medicines that make you sleepy. oDon t drive or operate machinery. oDon t do anything strenuous, such as heavy lifting or straining. oLimit tasks that require concentration. This includes reading, using a smartphone or computer, watching TV, and playing video games. oDon t return to sports or other activities that could result in another head injury. Follow-up care Follow up with your healthcare provider, or as directed. If imaging tests were done, they will be reviewed by a doctor. You will be told the results and any new findings that may affect your care. When to seek medical advice Call your healthcare provider right away if any of these occur: Pain doesn t get better or worsens New or increased swelling or bruising Fever of 100.4 F (38 C) or higher, or as directed by your provider Increased redness, warmth, drainage, or bleeding from the injured area Fluid drainage or bleeding from the nose or ears Any depression or bony abnormality in the injured area Persistent confusion or lethargy Bruising behind the ears or bruising around the eyes [phone] [employer]. [address] [place] [address], [place] [address]. All rights reserved. This information is not intended as a substitute for professional medical care. Always follow yourhealthcare professional's instructions. Follow Up Care 01/12/2022 22:27:03 With:Go to emergency room if symptoms worsen Address:Unknown When:2-4 days With:VIKTORIA CHRISTIANSON APRN-RIGGING UP WORKER Address: [address] [place] [id number] [phone] When:2-4 days [facility] 11-10-2022 Emergency department Discharge summary Discharge Instructions Thank you for allowing [facility] to assist you with your healthcare needs. The following is importantdischarge information regarding your hospital visit. Diagnosis from Today's Visit Head injury Head pain/injury What to Do Next Instructions from Your Care Team Discharge Return to Work, School, or Sports (Return to Work, School, or Sports) - Ordered -- 01/14/22, May return to: work, 01/12/22 22:37:00 EST Post Acute Orders No qualifying data available. You Need to Schedule the Following Appointments Follow Up with Go to emergency room if symptoms worsen When Within 2-4 days Follow Up with VIKTORIA CHRISTIANSON APRN-RIGGING UP WORKER When Within 2-4 days Where: [address] [place] [id number] [phone] Allergies NKA Medications Please ask your primary doctor or pharmacist before taking any other medication not listed, including over the counter drugs, herbal medications, vitamins and or supplements as they may interact withyour home medications. What How Much When Why Instructions Last Dose Unchanged albuterol (albuterol MDI (90 mcg/ inh) CFC free inhalation aerosol) 2 puff(s) by inhalation Four (4) times a day as needed for as needed for wheezing Asthma Unchanged omeprazole (omeprazole 20 mg oral delayed release capsule) 1 cap by mouth Once a day Duration: 14 Days Please take this list to your next doctor s visit. Bring all medications you take, including over the counter medications, herbals and other supplements with you to your doctor s visit. Patients and families are reminded to discard old lists and to update any records with all medication providers or retail pharmacies. Education Materials Head Injury (Adult) You have a head injury. It does not appear serious at this time. But symptoms of a more serious problem, such as a mild brain injury (concussion) or bruising or bleeding in the brain, may appear later. For this reason, you or someone caring for you will need to watch for the symptoms listed below. Once you re home, also be sure to follow any care instructions you re given. Home care Watch for the following symptoms Seek emergency medical care if you have any of these symptoms over the next hours to days: Headache Nausea or vomiting Dizziness Sensitivity to light or noise Unusual sleepiness or grogginess Trouble falling asleep Personality changes Vision changes Memory loss Confusion Trouble walking or clumsiness Loss of consciousness (even for a short time) Inability to be awakened Stiff neck Weakness or numbness in any part of the body Seizures General care If you were prescribed medicines for pain, use them as directed. Note: Don t take other medicines for pain without talking to your provider first. To help reduce swelling and pain, apply a cold source to the injured area for up to 20 minutes at atime. Do this as often as directed. Use a cold pack or bag of ice wrapped in a thin towel. Never apply a cold source directly to the skin. If you have cuts or scrapes as a result of your head injury, care for them as directed. For the next 24 hours (or longer, if instructed): oDon t drink alcohol or use sedatives or other medicines that make you sleepy. oDon t drive or operate machinery. oDon t do anything strenuous, such as heavy lifting or straining. oLimit tasks that require concentration. This includes reading, using a smartphone or computer, watching TV, and playing video games. oDon t return to sports or other activities that could result in another head injury. Follow-up care Follow up with your healthcare provider, or as directed. If imaging tests were done, they will be reviewed by a doctor. You will be told the results and any new findings that may affect your care. When to seek medical advice Call your healthcare provider right away if any of these occur: Pain doesn t get better or worsens New or increased swelling or bruising Fever of 100.4 F (38 C) or higher, or as directed by your provider Increased redness, warmth, drainage, or bleeding from the injured area Fluid drainage or bleeding from the nose or ears Any depression or bony abnormality in the injured area Persistent confusion or lethargy Bruising behind the ears or bruising around the eyes [phone] [employer]. [address] [place] [address], [place] [address]. All rights reserved. This information is not intended as a substitute for professional medical care. Always follow yourhealthcare professional's instructions. Additional Information VACCINATE! IT SAVES LIVES! Members of the community who have not yet received the COVID-19 vaccine and would like to receive it can visit one of [facility] vaccine clinics. There are many vaccine clinic locations within the [facility]. For locations and available times, please visit [email or web address]. It is important to note that some COVID mobile vaccine clinics are held outdoors and may be canceled in rainy orstormy conditions. To learn more about pediatric vaccinations (ages 5-11), we invite you to visit the [facility] webpage. [email or web address]://[email or web address]/[email or web address] [email or web address] learn more about the COVID-19 vaccine, we invite you to visit the [place] website for a list of frequently asked questions. [email or web address]/[email or web address]-[email or web address] _[email or web address]-Questions.pdf [facility] Patient Portal Access Instructions: Stay connected with your healthcare team and access your personal medical information anytime with the [facility] Patient Portal. If you would like a full copy of your medical records please contact the [facility] Medical Records Department Sunday through Sunday between 8a.m. and 4:30p.m. Please follow the directions below to access the portal: 1.Access the email account you provided upon registration to the hospital.2.Look for an invitation email from [facility].3.Open the email and access the invitation link: Accept Invitation to [facility]4.Fill in the required gibson to create your account. Sign into [email or web address] with your username and password that you created in the above steps to stay up to date. You can then view a summary of results, a summary of your visits, and the ability to download your summaries to your computer or send the information securely to a physician. Remember that your healthcare information is confidential, so carefully consider who you will allow to register on the [facility] Patient Portal for access to your information. You can also access the [facility] Patient Portal on the [employer]. Simply click on Health Records under HealthData and then click on the [employer] logo. HOW TO SAFELY DISPOSE OF PRESCRIPTION MEDICATIONS Please use one of the following methods to safely dispose of your unused medications. 1.Use a drug disposal kit: the drug disposal pouch allows you to safely discard your old and unuseddrugs. Ask your nurse to give you one when you are discharged.2.Visit a local take-back location: Many local pharmacies and police departments have programs that collect old and unwanted prescriptiondrugs. Call your local pharmacy or go to http://tuQuejaSuma.[email or web address] to find one close to you.3.Make use of household items: Use cat litter or old coffee grounds to dispose medications if other options arenot available. Mix your drugs with these household products, seal them in an airtight container andthrow it into the garbage. Call [facility]: [phone] to be sure your drugs can be disposed of in this way. Some medicines may require a different approach.4.Never flush your medications down the toilet. IF YOU HAVE BEEN PRESCRIBED AN OPIOIDS FOR PAIN If you have been prescribed an opioid (such as hydrocodone, oxycodone or morphine), it is critical to understand the possible side effects and risks of opioid pain medications. Even when taken as directed, opioids can have several side effects including: Tolerance, meaning you might need to take more of a medication for the same pain relief. Nausea, vomiting and/or constipation. Sleepiness, dizziness, dry mouth, confusion, depression or itching. Physical dependence, meaning you have withdrawal symptoms when a medication is stopped ? this can develop within a few days. KNOW YOUR RESPONSIBILITIES It is important to know exactly how much and how often to take the opioid pain medications you are prescribed. Never take opioids in higher amounts or more often than prescribed. Do not combine opioids with alcohol or other drugs that cause drowsiness, such as benzodiazepines, also known as benzos,including diazepam and alprazolam, muscle relaxants or sleep aids. Never sell or share prescriptionopioids. This is illegal. Store opioids in a secure place and out of reach of others (including children, family, friends and visitors). The last page(s) of this document has been signed and retained as a CHART COPY Signatures Patient Education Materials Head Injury (Adult) Medication Leaflets My discharge plan and instructions have been reviewed and explained to me and I,MARCO BOSTON S understand my current condition and have read and understand these discharge instructions. I have received a written copy of the plan/instructions. If I have questions, I am aware that I should contact my doctor. 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 Stay home except to get medical care. Stay home. Most people with COVID-19 have mild illness and are able to recover at home without medical care. Do not leave your home, except to get medical care. Do not visit public areas. Take care of yourself. Get rest and stay hydrated. Get medical care when needed. Call your doctor before you go to their office for care. But, if you have trouble breathing or other concerning symptoms, call 911 for immediate help. Avoid public transportation, ride-sharing, or taxis. Separate yourself from other people and pets in your home. As much as possible, stay in a specific room and away from other people and pets in your home. Also, you should use a separate bathroom, if available. If you need to be around other people or animalsin or outside of the home, wear a cloth face covering. See COVID-19 and Animals if you have questions about pets: https://www.cdc.gov/coronavirus/2019ncov/faq.html#FDWYN34spntnph Monitor your symptoms. Common symptoms of COVID-19 include fever and cough. Trouble breathing is a more serious symptom that means you should get medical attention. Follow care instructions from your healthcare provider and local health department. Your local health authorities will give instructions on checking your symptoms and reporting information. If you develop emergency warning signs for COVID-19 get medical attention immediately. Emergency warning signs include*: Trouble breathing Persistent pain or pressure in the chest New confusion or not able to be woken Bluish lips or face *This list is not all inclusive. Please consult your medical provider for any other symptoms that are severe or concerning to you. Call 911 if you have a medical emergency. If you have a medical emergency and need to call 911, notify the seam rubbing machine operator that you have or think you might have, COVID-19. If possible, put on a facemask before medical help arrives Call ahead before visiting your doctor. Call ahead. Many medical visits for routine care are being postponed or done by phone or telemedicine. If you have a medical appointment that cannot be postponed, call your doctor s office. This will help the office protect themselves and other patients. If you are sick, wear a cloth covering over your nose and mouth. You should wear a cloth face covering over your nose and mouth if you must be around other people or animals, including pets (even at home). You don t need to wear the cloth face covering if you are alone. If you can t put on a cloth face covering (because of trouble breathing for example), cover your coughs and sneezes in some other way.Try to stay at least 6 feet away from other people. This will help protect the people around you. Note: During the COVID-19 pandemic, medical grade facemasks are reserved for healthcare workers andsome first responders. You may need to make a cloth face covering using a scarf or bandana. Cover your coughs and sneezes. Cover your mouth and nose with a tissue when you cough or sneeze. Throw used tissues in a lined trash can. Immediately wash your hands with soap and water for at least 20 seconds. If soap and water are not available, clean your hands with an alcohol-based hand central supply manager that contains at least 60% alcohol. Clean your hands often. Wash your hands often with soap and water for at least 20 seconds. This is especially important after blowing your nose, coughing, or sneezing; going to the bathroom; and before eating or preparing food. Use hand central supply manager if soap and water are not available. Use an alcohol-based hand central supply manager with atleast 60% alcohol, covering all surfaces of your hands and rubbing them together until they feel dry. Soap and water are the best option, especially if your hands are visibly dirty. \ Avoid touching your eyes, nose, and mouth with unwashed hands. Avoid sharing personal household items. Do not share dishes, drinking glasses, cups, eating utensils, towels, or bedding with other people in your home. Wash these items thoroughly after using them with soap and water or put them in the laborer starch factory. Clean all high-touch surfaces everyday. Clean and disinfect high-touch surfaces in your sick room and bathroom. Let someone else clean and disinfect surfaces in common areas, but not your bedroom and bathroom. If a caregiver or other person needs to clean and disinfect a sick person s bedroom or bathroom, they should do so on an as-needed basis. The caregiver/other person should wear a mask and wait as long as possible after the sick person has used the bathroom High-touch surfaces include phones, remote controls, counters, tabletops, doorknobs, bathroom fixtures, toilets, keyboards, tablets, and bedside tables. Clean and disinfect areas that may have blood, stool, or body fluids on them. Use household office machine installer and disinfectants. Clean the area or item with soap and water or another detergent if it is dirty. Then use a household disinfectant. Be sure to follow the instructions on the label to ensure safe and effective use of the product. Many products recommend keeping the surface wet for several minutes to ensure germs are killed. Many also recommend precautions such as wearing gloves and making sure you have good ventilation during use of the product. Most EPA-registered household disinfectants should be effective. How to discontinue home isolation. People with COVID-19 who have stayed home (home isolated) can stop home isolation under the following conditions: If you will not have a test to determine if you are still contagious, you can leave home after these three things have happened: You have had no fever for at least 72 hours (that is three full days of no fever without the use ofmedicine that reduces fevers) AND other symptoms have improved (for example, when your cough or shortness of breath has improved) AND at least 10 days have passed since your symptoms first appeared. If you will be tested to determine if you are still contagious, you can leave home after these three things have happened: You no longer have a fever (without the use of medicine that reduces fevers) AND other symptoms have improved (for example, when your cough or shortness of breath has improved) AND you received two negative tests in a row, 24 hours apart. Your doctor will follow CDC guidelines. In all cases, follow the guidance of your healthcare provider and local health department. The decision to stop home isolation should be made in consultation with your healthcare provider and [facility] and local health departments. Local decisions depend on local circumstances. cdc.gov/coronavirus 2021 19:53:46 Viral Syndrome (Adult) Viral Syndrome (Adult) A viral illness may cause a number of symptoms such as fever. Other symptoms depend on the part of the body that the virus affects. If it settles in your nose, throat, and lungs, it may cause cough, sore throat, congestion, runny nose, headache, earache and other ear symptoms, or shortness of breath. If it settles in your stomach and intestinal tract, it may cause nausea, vomiting, cramping, and diarrhea. Sometimes it causes generalized symptoms like aching all over, feeling tired, loss of energy, or loss of appetite. A viral illness usually lasts anywhere from several days to several weeks, but sometimes it lasts longer. In some cases, a more serious infection can look like a viral syndrome in the first few days of the illness. You may need another exam and additional tests to know the difference. Watch for thewarning signs listed below for when to seek medical advice. Home care Follow these guidelines for taking care of yourself at home: If symptoms are severe, rest at home for the first 2 to 3 days. Stay away from cigarette smoke - both your smoke and the smoke from others. You may use dkmq-plj-ehitloi acetaminophen or ibuprofen for fever, muscle aching, and headache, unless another medicine was prescribed for this. If you have chronic liver or kidney disease or ever had a stomach ulcer or gastrointestinal bleeding, talk with your healthcare provider before using these medicines. No one who is younger than 18 and ill with a fever should take aspirin. It may cause severe disease or . Your appetite may be poor, so a light diet is fine. Avoid dehydration by drinking 8 to 12, 8-ounce glasses of fluids each day. This may include water; orange juice; lemonade; apple, grape, and cranberry juice; clear fruit drinks; electrolyte replacement and sports drinks; and decaffeinated teas andcoffee. If you have been diagnosed with a kidney disease, ask your healthcare provider how much andwhat types of fluids you should drink to prevent dehydration. If you have kidney disease, drinking too much fluid can cause it build up in the your body and be dangerous to your health. Ivqy-vdj-pwashgs remedies won't shorten the length of the illness but may be helpful for symptoms such as cough, sore throat, nasal and sinus congestion, or diarrhea. Don't use decongestants if you have high blood pressure. Follow-up care Follow up with your healthcare provider if you do not improve over the next week. Call 911 Call 911 if any of the following occur: Convulsion Feeling weak, dizzy, or like you are going to faint Chest pain, or more than mild shortness of breath When to seek medical advice Call your healthcare provider right away if any of these occur: Cough with lots of colored sputum (mucus) or blood in your sputum Chest pain, shortness of breath, wheezing, or trouble breathing Severe headache; face, neck, or ear pain Severe, constant pain in the lower right side of your belly (abdominal) Continued vomiting (can t keep liquids down) Frequent diarrhea (more than 5 times a day); blood (red or black color) or mucus in diarrhea Feeling weak, dizzy, or like you are going to faint Extreme thirst Fever of 100.4 F (38 C) or higher, or as directed by your healthcare provider [id number] [employer]. [address] [place] [address], [place] [address]. All rights reserved. This information is not intended as a substitute for professional medical care. Always follow yourhealthcare professional's instructions. Follow Up Care 2021 19:28:52 With:VIKTORIA CHRISTIANSON Address: [address] [place] [address]- [phone] Business (1) When:5-7 days Comments:Follow-up as needed if your symptoms or not improving.Quarantine at home until you get the results of your COVID test.Push fluids and rest.Use a vaporizer at bedside.Warm salt water gargles, Chloraseptic spray and throat lozenges for symptomatic relief.Use Tylenol and Advil for fever and discomfortas needed.May use bkav-ywa-xnfozyo cough and cold medicines for symptomatic relief as needed.Returnto the ED if symptoms worsen. [facility] 10-21-2022 Emergency department Discharge summary Discharge Instructions Thank you for allowing [facility] to assist you with your healthcare needs. The following is importantdischarge information regarding your hospital visit. Diagnosis from Today's Visit Headache What to Do Next Instructions from Your Care Team No qualifying data available. Post Acute Orders No qualifying data available. You Need to Schedule the Following Appointments Follow Up with VIKTORIA CHRISTIANSON When Within 5-7 days Why: Follow-up as needed if your symptoms or not improving. Quarantine at home until you get the results of your COVID test. Push fluids and rest. Use a vaporizer at bedside. Warm salt water gargles, Chloraseptic spray and throat lozenges for symptomatic relief. Use Tylenol and Advil for fever and discomfort as needed. May use xgam-xbn-kugatwb cough and cold medicines for symptomatic relief as needed. Return to the ED if symptoms worsen. Where: [facility] [place] [address] [place] [address]- [phone] Business (1) Allergies NKA Medications Please ask your primary doctor or pharmacist before taking any other medication not listed, including over the counter drugs, herbal medications, vitamins and or supplements as they may interact withyour home medications. What How Much When Why Instructions Last Dose Unchanged albuterol (albuterol MDI (90 mcg/ inh) CFC free inhalation aerosol) 2 puff(s) by inhalation Four (4) times a day as needed for as needed for wheezing Asthma Unchanged omeprazole (omeprazole 20 mg oral delayed release capsule) 1 cap by mouth Once a day Duration: 14 Days Please take this list to your next doctor s visit. Bring all medications you take, including over the counter medications, herbals and other supplements with you to your doctor s visit. Patients and families are reminded to discard old lists and to update any records with all medication providers or retail pharmacies. Education Materials Prevent the Spread of COVID-19 If You Are Sick Accessible version: https://www.cdc.gov/coronavirus/2019-ncov/me-msr-teq-sick/ipfbj-ihyw-uptf.html If you are sick with COVID-19 or think you might have COVID-19, follow the steps below to help protect other people in your home and community. Stay home except to get medical care. Stay home. Most people with COVID-19 have mild illness and are able to recover at home without medical care. Do not leave your home, except to get medical care. Do not visit public areas. Take care of yourself. Get rest and stay hydrated. Get medical care when needed. Call your doctor before you go to their office for care. But, if you have trouble breathing or other concerning symptoms, call 911 for immediate help. Avoid public transportation, ride-sharing, or taxis. Separate yourself from other people and pets in your home. As much as possible, stay in a specific room and away from other people and pets in your home. Also, you should use a separate bathroom, if available. If you need to be around other people or animalsin or outside of the home, wear a cloth face covering. See COVID-19 and Animals if you have questions about pets: https://www.cdc.gov/coronavirus/2019ncov/faq.html#XKUZK59ubppnhg Monitor your symptoms. Common symptoms of COVID-19 include fever and cough. Trouble breathing is a more serious symptom that means you should get medical attention. Follow care instructions from your healthcare provider and local health department. Your local health authorities will give instructions on checking your symptoms and reporting information. If you develop emergency warning signs for COVID-19 get medical attention immediately. Emergency warning signs include*: Trouble breathing Persistent pain or pressure in the chest New confusion or not able to be woken Bluish lips or face *This list is not all inclusive. Please consult your medical provider for any other symptoms that are severe or concerning to you. Call 911 if you have a medical emergency. If you have a medical emergency and need to call 911, notify the seam rubbing machine operator that you have or think you might have, COVID-19. If possible, put on a facemask before medical help arrives Call ahead before visiting your doctor. Call ahead. Many medical visits for routine care are being postponed or done by phone or telemedicine. If you have a medical appointment that cannot be postponed, call your doctor s office. This will help the office protect themselves and other patients. If you are sick, wear a cloth covering over your nose and mouth. You should wear a cloth face covering over your nose and mouth if you must be around other people or animals, including pets (even at home). You don t need to wear the cloth face covering if you are alone. If you can t put on a cloth face covering (because of trouble breathing for example), cover your coughs and sneezes in some other way.Try to stay at least 6 feet away from other people. This will help protect the people around you. Note: During the COVID-19 pandemic, medical grade facemasks are reserved for healthcare workers andsome first responders. You may need to make a cloth face covering using a scarf or bandana. Cover your coughs and sneezes. Cover your mouth and nose with a tissue when you cough or sneeze. Throw used tissues in a lined trash can. Immediately wash your hands with soap and water for at least 20 seconds. If soap and water are not available, clean your hands with an alcohol-based hand central supply manager that contains at least 60% alcohol. Clean your hands often. Wash your hands often with soap and water for at least 20 seconds. This is especially important after blowing your nose, coughing, or sneezing; going to the bathroom; and before eating or preparing food. Use hand central supply manager if soap and water are not available. Use an alcohol-based hand central supply manager with atleast 60% alcohol, covering all surfaces of your hands and rubbing them together until they feel dry. Soap and water are the best option, especially if your hands are visibly dirty. \ Avoid touching your eyes, nose, and mouth with unwashed hands. Avoid sharing personal household items. Do not share dishes, drinking glasses, cups, eating utensils, towels, or bedding with other people in your home. Wash these items thoroughly after using them with soap and water or put them in the laborer starch factory. Clean all high-touch surfaces everyday. Clean and disinfect high-touch surfaces in your sick room and bathroom. Let someone else clean and disinfect surfaces in common areas, but not your bedroom and bathroom. If a caregiver or other person needs to clean and disinfect a sick person s bedroom or bathroom, they should do so on an as-needed basis. The caregiver/other person should wear a mask and wait as long as possible after the sick person has used the bathroom High-touch surfaces include phones, remote controls, counters, tabletops, doorknobs, bathroom fixtures, toilets, keyboards, tablets, and bedside tables. Clean and disinfect areas that may have blood, stool, or body fluids on them. Use household office machine installer and disinfectants. Clean the area or item with soap and water or another detergent if it is dirty. Then use a household disinfectant. Be sure to follow the instructions on the label to ensure safe and effective use of the product. Many products recommend keeping the surface wet for several minutes to ensure germs are killed. Many also recommend precautions such as wearing gloves and making sure you have good ventilation during use of the product. Most EPA-registered household disinfectants should be effective. How to discontinue home isolation. People with COVID-19 who have stayed home (home isolated) can stop home isolation under the following conditions: If you will not have a test to determine if you are still contagious, you can leave home after these three things have happened: You have had no fever for at least 72 hours (that is three full days of no fever without the use ofmedicine that reduces fevers) AND other symptoms have improved (for example, when your cough or shortness of breath has improved) AND at least 10 days have passed since your symptoms first appeared. If you will be tested to determine if you are still contagious, you can leave home after these three things have happened: You no longer have a fever (without the use of medicine that reduces fevers) AND other symptoms have improved (for example, when your cough or shortness of breath has improved) AND you received two negative tests in a row, 24 hours apart. Your doctor will follow CDC guidelines. In all cases, follow the guidance of your healthcare provider and local health department. The decision to stop home isolation should be made in consultation with your healthcare provider and state and local health departments. Local decisions depend on local circumstances. cdc.gov/coronavirus Viral Syndrome (Adult) A viral illness may cause a number of symptoms such as fever. Other symptoms depend on the part of the body that the virus affects. If it settles in your nose, throat, and lungs, it may cause cough, sore throat, congestion, runny nose, headache, earache and other ear symptoms, or shortness of breath. If it settles in your stomach and intestinal tract, it may cause nausea, vomiting, cramping, and diarrhea. Sometimes it causes generalized symptoms like aching all over, feeling tired, loss of energy, or loss of appetite. A viral illness usually lasts anywhere from several days to several weeks, but sometimes it lasts longer. In some cases, a more serious infection can look like a viral syndrome in the first few days of the illness. You may need another exam and additional tests to know the difference. Watch for thewarning signs listed below for when to seek medical advice. Home care Follow these guidelines for taking care of yourself at home: If symptoms are severe, rest at home for the first 2 to 3 days. Stay away from cigarette smoke - both your smoke and the smoke from others. You may use snhf-sbm-dytcxyy acetaminophen or ibuprofen for fever, muscle aching, and headache, unless another medicine was prescribed for this. If you have chronic liver or kidney disease or ever had a stomach ulcer or gastrointestinal bleeding, talk with your healthcare provider before using these medicines. No one who is younger than 18 and ill with a fever should take aspirin. It may cause severe disease or . Your appetite may be poor, so a light diet is fine. Avoid dehydration by drinking 8 to 12, 8-ounce glasses of fluids each day. This may include water; orange juice; lemonade; apple, grape, and cranberry juice; clear fruit drinks; electrolyte replacement and sports drinks; and decaffeinated teas andcoffee. If you have been diagnosed with a kidney disease, ask your healthcare provider how much andwhat types of fluids you should drink to prevent dehydration. If you have kidney disease, drinking too much fluid can cause it build up in the your body and be dangerous to your health. Amix-oqi-wheiomx remedies won't shorten the length of the illness but may be helpful for symptoms such as cough, sore throat, nasal and sinus congestion, or diarrhea. Don't use decongestants if you have high blood pressure. Follow-up care Follow up with your healthcare provider if you do not improve over the next week. Call 911 Call 911 if any of the following occur: Convulsion Feeling weak, dizzy, or like you are going to faint Chest pain, or more than mild shortness of breath When to seek medical advice Call your healthcare provider right away if any of these occur: Cough with lots of colored sputum (mucus) or blood in your sputum Chest pain, shortness of breath, wheezing, or trouble breathing Severe headache; face, neck, or ear pain Severe, constant pain in the lower right side of your belly (abdominal) Continued vomiting (can t keep liquids down) Frequent diarrhea (more than 5 times a day); blood (red or black color) or mucus in diarrhea Feeling weak, dizzy, or like you are going to faint Extreme thirst Fever of 100.4 F (38 C) or higher, or as directed by your healthcare provider [phone] [employer]. [address] [place] [address]. All rights reserved. This information is not intended as a substitute for professional medical care. Always follow yourhealthcare professional's instructions. Additional Information VACCINATE! IT SAVES LIVES! Members of the community who have not yet received the COVID-19 vaccine and would like to receive it can visit one of [facility] vaccine clinics. There are many vaccine clinic locations within the [facility]. For locations and available times, please visit [email or web address]. It is important to note that some COVID mobile vaccine clinics are held outdoors and may be canceled in rainy orstormy conditions. To learn more about pediatric vaccinations (ages 5-11), we invite you to visit the [facility] webpage. [email or web address]/[email or web address] stions.htmlTo learn more about the COVID-19 vaccine, we invite you to visit the [facility] website for a list of frequently asked questions. [email or web address]-[email or web address]-Vniaeoqkrj _[email or web address]-Questions.pdf [facility] Patient Portal Access Instructions: Stay connected with your healthcare team and access your personal medical information anytime with the [facility] Patient Portal. If you would like a full copy of your medical records please contact the [facility] Medical Records Department Sunday through Sunday between 8a.m. and 4:30p.m. Please follow the directions below to access the portal: 1.Access the email account you provided upon registration to the [facility].2.Look for an invitation email from [facility].3.Open the email and access the invitation link: Accept Invitation to [facility]4.Fill in the required gibson to create your account. Sign into [email or web address] Interactive with your username and password that you created in the above steps to stay up to date. You can then view a summary of results, a summary of your visits, and the ability to download your summaries to your computer or send the information securely to a physician. Remember that your healthcare information is confidential, so carefully consider who you will allow to register on the [facility] Patient Portal for access to your information. You can also access the [facility] Patient Portal on the [employer] octavio. Simply click on Health Records under [employer] and then click on the [employer] logo. HOW TO SAFELY DISPOSE OF PRESCRIPTION MEDICATIONS Please use one of the following methods to safely dispose of your unused medications. 1.Use a drug disposal kit: the drug disposal pouch allows you to safely discard your old and unuseddrugs. Ask your nurse to give you one when you are discharged.2.Visit a local take-back location: Many local pharmacies and police departments have programs that collect old and unwanted prescriptiondrugs. Call your local pharmacy or go to http://bit.[employer]/9Z6Ex1o to find one close to you.3.Make use of household items: Use cat litter or old coffee grounds to dispose medications if other options arenot available. Mix your drugs with these household products, seal them in an airtight container andthrow it into the garbage. Call [facility]: [phone] to be sure your drugs can be disposed of in this way. Some medicines may require a different approach.4.Never flush your medications down the toilet. IF YOU HAVE BEEN PRESCRIBED AN OPIOIDS FOR PAIN If you have been prescribed an opioid (such as hydrocodone, oxycodone or morphine), it is critical to understand the possible side effects and risks of opioid pain medications. Even when taken as directed, opioids can have several side effects including: Tolerance, meaning you might need to take more of a medication for the same pain relief. Nausea, vomiting and/or constipation. Sleepiness, dizziness, dry mouth, confusion, depression or itching. Physical dependence, meaning you have withdrawal symptoms when a medication is stopped ? this can develop within a few days. KNOW YOUR RESPONSIBILITIES It is important to know exactly how much and how often to take the opioid pain medications you are prescribed. Never take opioids in higher amounts or more often than prescribed. Do not combine opioids with alcohol or other drugs that cause drowsiness, such as benzodiazepines, also known as benzos,including diazepam and alprazolam, muscle relaxants or sleep aids. Never sell or share prescriptionopioids. This is illegal. Store opioids in a secure place and out of reach of others (including children, family, friends and visitors). The last page(s) of this document has been signed and retained as a CHART COPY Signatures Patient Education Materials COVID-19 Prevent the Spread of COVID-19 If You Are Sick (07/22/2019)(CUSTOM) Viral Syndrome (Adult) Medication Leaflets My discharge plan and instructions have been reviewed and explained to me and I,MARCO BOSTON understand my current condition and have read and understand these discharge instructions. I have received a written copy of the plan/instructions. If I have questions, I am aware that I should contact my doctor. Patient/Corrugator Helper Signature: Date/Time: Relationship to Patient: Witness Name/Signature: Date/Time: [facility]08[facility]22 Evaluation + Plan note Diagnostic Tests Pending * Chlamydia trachomatis PCR 10/03/21 * N. gonorrhoeae PCR 10/03/21 * Affirm Pathogens DNA Direct Probe 10/03/21 [facility] 08-01-2022 Hospital Discharge instructions Patient Education 10/03/2021 01:46:48 VAGINITIS, Uzma Uzma Vaginal Infection Uzma is an overgrowth of the yeast germs that are normally present in the vagina. The symptoms are itching and redness of the outer vaginal area and whitish discharge. You may also have a burning sensation when you pass urine. This is due to the urine contacting the inflamed outer vaginal tissues. This infection occurs when there is an imbalance in the natural fluids of the vagina. It may occur during , or when taking control pills or antibiotics. Other risk factors include diabetes, wearing tight underwear and douching too often. Home Care: Keep the genital area clean and free of discharge by wearing an absorbent sanitary pad. Change the pad often. Shower daily, cleaning the outer vaginal area with plain soap and water. Do not douche during treatment unless advised to do so by your doctor. Routine douching after treatment is no longer recommended to clean the vagina. It raises your risk of vaginal infection and pelvic inflammatory disease. Don t have sex until you have finished the medicine and all of your symptoms have gone away. Wear cotton underwear or cotton-lined panty hose. Don t wear pants that are too tight. Take all medicine as directed until it is gone. If you don t do this, symptoms might come back. Follow Up: Return to this facility or see your doctor if ALL symptoms have not cleared after treatment is complete. Get Prompt Medical Attention if any of the following occur: Fever of 100.4 F (38 C) or higher, or as directed by your healthcare provider Lower abdominal pain Rash or joint pain Painful sores around the outer vaginal area or on your partner s penis [id number] [employer]. [address] [place] [address], [place] [address]. All rights reserved. This information is not intended as a substitute for professional medical care. Always follow yourhealthcare professional's instructions. 10/03/2021 01:46:47 Preventing Vaginitis Preventing Vaginitis Use mild, unscented soap when you bathe or shower to avoid irritating your vagina. Vaginitis is irritation or infection of the vagina or vulva (the outside opening of the vagina). Vaginitis can be caused by bacteria, viruses, parasites, or yeast. Chemicals (such as in perfumes or soaps or in spermicides) can sometimes be a cause. Vaginitis can be caused by hormone changes in or with menopause. You can help prevent vaginitis. Follow the tips below. And see your healthcare provider if you have any symptoms. Hygiene Avoid chemicals. Do not use vaginal sprays. Do not use scented toilet paper or tampons that are scented. Sprays and scents have chemicals that can irritate your vagina. Do not douche unless you are told to by your healthcare provider. Douching is rarely needed. And itupsets the normal balance in the vagina. Wash yourself well. Wash the outer vaginal area (vulva) every day with mild, unscented soap. Keep it as dry as possible. Wipe correctly. Make sure to wipe from front to back after a bowel movement. This helps keep from spreading bacteria from your anus to your vagina. Change your tampon often. During your period, make sure to change your tampon as often as directed on the package. This allows the normal flow of vaginal discharge and blood. Lifestyle Limit your number of sexual partners. The more partners you have, the greater your risk of infection. Using condoms helps reduce your risk. Get enough sleep. Sleep helps keep your body s immune system healthy. This helps you fight infection. Lose weight, if needed. Excess weight can reduce air circulation around your vagina. This can increase your risk of infection. Exercise regularly. Regular activity helps keep your body healthy. Take antibiotics only as directed. Antibiotics can change the normal chemical balance in the vagina. Clothing Don t sit in wet clothes. Yeast thrives when it s warm and damp. Don t wear tight pants. And don t wear tights, leggings, or hose without a cotton crotch. These types of clothing trap warmth and moisture. Wear cotton underwear. Cotton lets air circulate around the vagina. Symptoms of vaginitis Irritation, swelling, or itching of the genital area Vaginal discharge Bad vaginal odor Pain or burning during urination [id number] [employer]. [address] [place] [address]. All rights reserved. This information is not intended as a substitute for professional medical care. Always follow yourhealthcare professional's instructions. Follow Up Care 10/03/2021 00:42:10 With:VIKTORIA CHRISTIANSON Address: [address] [place] [phone] When:2-4 days [facility] 08-01-2022 Note Discharge Instructions Thank you for allowing [facility] to assist you with your healthcare needs. The following is importantdischarge information regarding your hospital visit. Diagnosis from Today's Visit Vaginal discharge Genital itching What to Do Next Instructions from Your Care Team No qualifying data available. Post Acute Orders No qualifying data available. You Need to Schedule the Following Appointments Follow Up with VIKTORIA CHRISTIANSON When Within 2-4 days Where: [address] [place] [id number] [phone] Allergies NKA Medications Please ask your primary doctor or pharmacist before taking any other medication not listed, including over the counter drugs, herbal medications, vitamins and or supplements as they may interact withur home medications. What How Much When Why Instructions Last Dose New fluconazole (Diflucan 150 mg oral tablet) See instructions Vaginal discharge 1 tab(s) Oral qDay 1 dose(s), repeat in 48 hrs if continued symptoms Printed Prescription Unchanged albuterol (albuterol MDI (90 mcg/ inh) CFC free inhalation aerosol) 2 puff(s) by inhalation Four (4) times a day as needed for as needed for wheezing Asthma Unchanged cetirizine (cetirizine 10 mg oral tablet) 1 tab(s) by mouth Once a day Allergic rhinitis, seasonal Unchanged meloxicam (meloxicam 7.5 mg oral tablet) 1 tab(s) by mouth Once a day Please take this list to your next doctor s visit. Bring all medications you take, including over the counter medications, herbals and other supplements with you to your doctor s visit. Patients and families are reminded to discard old lists and to update any records with all medication providers or retail pharmacies. Education Materials Uzma Vaginal Infection Uzma is an overgrowth of the yeast germs that are normally present in the vagina. The symptoms are itching and redness of the outer vaginal area and whitish discharge. You may also have a burning sensation when you pass urine. This is due to the urine contacting the inflamed outer vaginal tissues. This infection occurs when there is an imbalance in the natural fluids of the vagina. It may occur during , or when taking control pills or antibiotics. Other risk factors include diabetes, wearing tight underwear and douching too often. Home Care: Keep the genital area clean and free of discharge by wearing an absorbent sanitary pad. Change the pad often. Shower daily, cleaning the outer vaginal area with plain soap and water. Do not douche during treatment unless advised to do so by your doctor. Routine douching after treatment is no longer recommended to clean the vagina. It raises your risk of vaginal infection and pelvic inflammatory disease. Don t have sex until you have finished the medicine and all of your symptoms have gone away. Wear cotton underwear or cotton-lined panty hose. Don t wear pants that are too tight. Take all medicine as directed until it is gone. If you don t do this, symptoms might come back. Follow Up: Return to this facility or see your doctor if ALL symptoms have not cleared after treatment is complete. Get Prompt Medical Attention if any of the following occur: Fever of 100.4 F (38 C) or higher, or as directed by your healthcare provider Lower abdominal pain Rash or joint pain Painful sores around the outer vaginal area or on your partner s penis [id number] [employer]. [address] [place] [address], [place] [address]. All rights reserved. This information is not intended as a substitute for professional medical care. Always follow yourhealthcare professional's instructions. Preventing Vaginitis Use mild, unscented soap when you bathe or shower to avoid irritating your vagina. Vaginitis is irritation or infection of the vagina or vulva (the outside opening of the vagina). Vaginitis can be caused by bacteria, viruses, parasites, or yeast. Chemicals (such as in perfumes or soaps or in spermicides) can sometimes be a cause. Vaginitis can be caused by hormone changes in or with menopause. You can help prevent vaginitis. Follow the tips below. And see your healthcare provider if you have any symptoms. Hygiene Avoid chemicals. Do not use vaginal sprays. Do not use scented toilet paper or tampons that are scented. Sprays and scents have chemicals that can irritate your vagina. Do not douche unless you are told to by your healthcare provider. Douching is rarely needed. And itupsets the normal balance in the vagina. Wash yourself well. Wash the outer vaginal area (vulva) every day with mild, unscented soap. Keep it as dry as possible. Wipe correctly. Make sure to wipe from front to back after a bowel movement. This helps keep from spreading bacteria from your anus to your vagina. Change your tampon often. During your period, make sure to change your tampon as often as directed on the package. This allows the normal flow of vaginal discharge and blood. Lifestyle Limit your number of sexual partners. The more partners you have, the greater your risk of infection. Using condoms helps reduce your risk. Get enough sleep. Sleep helps keep your body s immune system healthy. This helps you fight infection. Lose weight, if needed. Excess weight can reduce air circulation around your vagina. This can increase your risk of infection. Exercise regularly. Regular activity helps keep your body healthy. Take antibiotics only as directed. Antibiotics can change the normal chemical balance in the vagina. Clothing Don t sit in wet clothes. Yeast thrives when it s warm and damp. Don t wear tight pants. And don t wear tights, leggings, or hose without a cotton crotch. These types of clothing trap warmth and moisture. Wear cotton underwear. Cotton lets air circulate around the vagina. Symptoms of vaginitis Irritation, swelling, or itching of the genital area Vaginal discharge Bad vaginal odor Pain or burning during urination [id number] [employer]. [address] [place] [address], [place] [address]. All rights reserved. This information is not intended as a substitute for professional medical care. Always follow yourhealthcare professional's instructions. Additional Information VACCINATE! IT SAVES LIVES! Members of the community who have not yet received the COVID-19 vaccine and would like to receive it can visit one of [facility] vaccine clinics. There are many vaccine clinic locations within the [facility]. For locations and available times, please visit [email or web address]. It is important to note that some COVID mobile vaccine clinics are held outdoors and may be canceled in rainy orstormy conditions. To learn more about pediatric vaccinations (ages 5-11), we invite you to visit the [facility] webpage. [email or web address] learn more about the COVID-19 vaccine, we invite you to visit the [facility] website for a list of frequently asked questions. [email or web address] [facility] Patient Portal Access Instructions: Stay connected with your healthcare team and access your personal medical information anytime with the [facility] Patient Portal. If you would like a full copy of your medical records please contact the [facility] Medical Records Department Sunday through Sunday between 8a.m. and 4:30p.m. Please follow the directions below to access the portal: 1.Access the email account you provided upon registration to the [facility].2.Look for an invitation email from [facility].3.Open the email and access the invitation link: Accept Invitation to [facility]4.Fill in the required gibson to create your account. Sign into [email or web address] with your username and password that you created in the above steps to stay up to date. You can then view a summary of results, a summary of your visits, and the ability to download your summaries to your computer or send the information securely to a physician. Remember that your healthcare information is confidential, so carefully consider who you will allow to register on the [facility] Patient Portal for access to your information. You can also access the [facility] Patient Portal on the [employer]. Simply click on Health Records under [employer] and then click on the [employer] logo. HOW TO SAFELY DISPOSE OF PRESCRIPTION MEDICATIONS Please use one of the following methods to safely dispose of your unused medications. 1.Use a drug disposal kit: the drug disposal pouch allows you to safely discard your old and unuseddrugs. Ask your nurse to give you one when you are discharged.2.Visit a local take-back location: Many local pharmacies and police departments have programs that collect old and unwanted prescriptiondrugs. Call your local pharmacy or go to http://[email or web address].[employer] Technology/8B0Oz2q to find one close to you.3.Make use of household items: Use cat litter or old coffee grounds to dispose medications if other options arenot available. Mix your drugs with these household products, seal them in an airtight container andthrow it into the garbage. Call [facility]: [phone] to be sure your drugs can be disposed of in this way. Some medicines may require a different approach.4.Never flush your medications down the toilet. IF YOU HAVE BEEN PRESCRIBED AN OPIOIDS FOR PAIN If you have been prescribed an opioid (such as hydrocodone, oxycodone or morphine), it is critical to understand the possible side effects and risks of opioid pain medications. Even when taken as directed, opioids can have several side effects including: Tolerance, meaning you might need to take more of a medication for the same pain relief. Nausea, vomiting and/or constipation. Sleepiness, dizziness, dry mouth, confusion, depression or itching. Physical dependence, meaning you have withdrawal symptoms when a medication is stopped ? this can develop within a few days. KNOW YOUR RESPONSIBILITIES It is important to know exactly how much and how often to take the opioid pain medications you are prescribed. Never take opioids in higher amounts or more often than prescribed. Do not combine opioids with alcohol or other drugs that cause drowsiness, such as benzodiazepines, also known as benzos,including diazepam and alprazolam, muscle relaxants or sleep aids. Never sell or share prescriptionopioids. This is illegal. Store opioids in a secure place and out of reach of others (including children, family, friends and visitors). The last page(s) of this document has been signed and retained as a CHART COPY Signatures Patient Education Materials VAGINITIS, Uzma Preventing Vaginitis Medication Leaflets My discharge plan and instructions have been reviewed and explained to me and I,MARCO BOSTON S understand my current condition and have read and understand these discharge instructions. I have received a written copy of the plan/instructions. If I have questions, I am aware that I should contact my doctor. Patient/Corrugator Helper Signature: Date/Time: Relationship to Patient: Witness Name/Signature: Date/Time: [facility]11-29-2021 Hospital Discharge instructions Patient Education 01/31/2021 03:39:49 Pain Control (Child) Pain Control (Child) All children feel pain, even tiny babies. Pain is both a physical and a mental experience. It is often linked with fear and stress. Both short-term and ongoing (chronic) pain can harm children s ability to interact with the world around them. Pain can cause problems for a child at home and at school. Pain has many causes. It can be a result of an injury. It can be caused by medical treatments, suchas surgery, injections, or tests. And an illness, such as cancer, can also cause it. Pain control will make a child happier and more comfortable. If the child had an injury or surgery,it will also help in healing. Home care Your child s healthcare provider may prescribe medicines for pain relief and relaxation. These may include acetaminophen or ibuprofen. Follow all instructions for giving any medicine to your child. Talk with the healthcare provider about any side effects to expect. Don t give your child aspirin unless told by your child's healthcare provider to do so. Don't give your child any other medicine without first asking the provider. Give your child pain medicine on time as prescribed. This helps control pain before it gets severe.Don t skip doses or wait too long between doses. Follow medicine instructions carefully. The amount your child should take (dosage) is based on factors such as body weight and age. Dosages for children tend to be lower than for adults. Don t give ahigher dosage than instructed. This can be dangerous. Let the healthcare provider know what medicines have worked well for your child in the past. Mention if your child prefers liquids to pills. Tell the healthcare provider if the pain medicine is not working. He or she can adjust the medicinebefore your child s pain gets severe. oPain in babies and toddlers. Signs of pain include crying that can t be soothed, anxious facial expressions, or changes in sleeping. A sweaty forehead or fast pulse may also be a sign of pain. oPain in older children. Talk with your child about his or her pain. Your child may be able to describe the pain, answer questions about it, or even point to the painful area. If a child has trouble describing pain, use a pain scale with faces. Using medicine safely Always call your child's healthcare provider before giving acetaminophen to a child under 2 years of age If your baby is under 3 months old and has a fever, call your child's healthcare provider right away For children 2 years of age and older, check the label to see how much medicine to give. Use your child's weight to determine the dose. If you don't know your child's weight, go by your child's age for the dose amount. Never give adult medicines to children. Never give your child another child's prescription medicine Only use the dosing device that comes with the medicine. Keep medicines out of reach of children. If possible, store medicines in a locked cabinet away fromchildren and teens. If you think your child has taken too much medicine, contact Poison Control right away at [phone]. If you have any questions about your child's medicines, call your healthcare provider before givingthem. Treating pain without medicine In babies and toddlers: Try holding, rocking, cuddling, or massaging your child. Physical touch can be soothing. Wrap (swaddle) your infant tightly in a warm blanket. Hold your child next to your bare skin. Tjww-qg-bizp contact can be comforting. Encourage thumb sucking or using a pacifier. This may soothe babies and toddlers. In older children: Try holding, rocking, cuddling, or massaging your child. Physical touch can be soothing to a child of any age. Help distract your child s from the pain with play. Try blowing bubbles, watching videos, telling stories, or playing with toys or games. Your child might enjoy listening to music, reading or being read to, or doing arts and crafts. Try guided imagery. This is done by having your child imagine a pleasant or happy scene. He or she should focus on the scene s sights, smells, and feelings. This can help take the child s attention away from pain. Help your child with relaxation exercises. Relaxation loosens tense muscles and calms an anxious mind. An older child who can follow instructions may try controlled breathing. Taking long, deep breaths can reduce heart rate and blood pressure. Relaxation can also help reduce pain and relieve nausea. Follow-up care Follow up with your child s healthcare provider, or as advised. Special note to parents If you have any questions or concerns about your child s care or the pain management strategies youare using, talk with your child s healthcare provider. When to seek medical advice Call your child's healthcare provider right away if any of these occur: Pain not getting better even with pain medicine Pain getting worse Any new symptoms [id number] [employer]. [address] [place] [address], [place] [address]. All rights reserved. This information is not intended as a substitute for professional medical care. Always follow yourhealthcare professional's instructions. Follow Up Care 01/31/2021 02:33:23 With:VIKTORIA CHRISTIANSON Address: [address] [place] [address] [place] [phone] When:2-4 days [facility] Evaluation + Plan note No data available for this section [facility] Evaluation + Plan note Future Appointments Appointment Date:10/25/2022 08:30:00 AM Scheduled Provider:VIKTORIA MARINELLI Location:[facility] Appointment Type:[facility] Future Scheduled Tests Laboratory* Von Willebrand Multimer 07/19/22 * Antinuclear Antibody Screen, Serum 08/24/22 * Uric Acid 08/24/22 * Rheumatoid Factor 08/24/22 * APTT Panel 07/19/22 * Factor VIII Assay 07/19/22 * Von Willebrand Related Antigen 07/19/22 * Prothrombin Time - Panel 07/19/22 * Ristocetin Cofactor 07/19/22 Radiology* XR Finger Thumb 3 Views Left 08/24/22 * XR Finger Thumb 3 Views Right 08/24/22 [facility] Evaluation + Plan note Future Appointments Appointment Date:01/15/2023 01:30:00 PM Scheduled Provider: Location:[facility] Appointment Type:US OB < 14 weeks Appointment Date:01/31/2023 09:30:00 AM Scheduled Provider:VIKTORIA MARINELLI Location:[facility] Appointment Type:[facility] OB Routine Follow Up Future Scheduled Tests Laboratory* Von Willebrand Multimer 07/19/22 * Type and Screen (AO) 01/03/23 * Antinuclear Antibody Screen, Serum 08/24/22 * Hepatitis B Surface Antigen 01/03/23 * Rapid Plasma Reagin Test 01/03/23 * Rubella Antibody 01/03/23 * Uric Acid 08/24/22 * Rheumatoid Factor 08/24/22 * APTT Panel 07/19/22 * Complete Blood Count 01/03/23 * Factor VIII Assay 07/19/22 * Von Willebrand Related Antigen 07/19/22 * Hepatitis C Antibody IgG 01/03/23 * Prothrombin Time - Panel 07/19/22 * Ristocetin Cofactor 07/19/22 * Varicella Zoster Antibody 01/03/23 * Complete Metabolic Panel 01/03/23 Radiology* US OB < 14 weeks 01/15/23 * XR Finger Thumb 3 Views Left 08/24/22 * XR Finger Thumb 3 Views Right 08/24/22 [facility] Evaluation + Plan note Future Appointments Appointment Date:01/31/2023 09:30:00 AM Scheduled Provider:VIKTORIA MARINELLI Location:[facility] Appointment Type:[facility] OB Routine Follow Up Future Scheduled Tests Laboratory* Von Willebrand Multimer 07/19/22 * Type and Screen (AO) 01/03/23 * Antinuclear Antibody Screen, Serum 08/24/22 * Hepatitis B Surface Antigen 01/03/23 * Rapid Plasma Reagin Test 01/03/23 * Rubella Antibody 01/03/23 * Uric Acid 08/24/22 * Rheumatoid Factor 08/24/22 * APTT Panel 07/19/22 * Complete Blood Count 01/03/23 * Factor VIII Assay 07/19/22 * Von Willebrand Related Antigen 07/19/22 * Hepatitis C Antibody IgG 01/03/23 * Prothrombin Time - Panel 07/19/22 * Ristocetin Cofactor 07/19/22 * Varicella Zoster Antibody 01/03/23 * Complete Metabolic Panel 01/03/23 Radiology* XR Finger Thumb 3 Views Left 08/24/22 * XR Finger Thumb 3 Views Right 08/24/22 [facility] Evaluation + Plan note Future Appointments Appointment Date:02/28/2023 08:45:00 AM Scheduled Provider:VIKTORIA MARINELLI Location:[facility] Appointment Type:[facility] OB Routine Follow Up Future Scheduled Tests Laboratory* Von Willebrand Multimer 07/19/22 * Type and Screen (AO) 01/03/23 * Antinuclear Antibody Screen, Serum 08/24/22 * Hepatitis B Surface Antigen 01/03/23 * Rapid Plasma Reagin Test 01/03/23 * Rubella Antibody 01/03/23 * Uric Acid 08/24/22 * Rheumatoid Factor 08/24/22 * APTT Panel 07/19/22 * Complete Blood Count 01/03/23 * Factor VIII Assay 07/19/22 * Von Willebrand Related Antigen 07/19/22 * Hepatitis C Antibody IgG 01/03/23 * Prothrombin Time - Panel 07/19/22 * Ristocetin Cofactor 07/19/22 * Varicella Zoster Antibody 01/03/23 * Complete Metabolic Panel 01/03/23 * [facility] [place] out (Blood Specimens) 01/31/23 * [facility] Send out (Blood Specimens) 01/31/23 Radiology* XR Finger Thumb 3 Views Left 08/24/22 * XR Finger Thumb 3 Views Right 08/24/22 [facility] Evaluation + Plan note Future Appointments Appointment Date:04/09/2023 09:00:00 AM Scheduled Provider: Location:[facility] Appointment Type:US OB > 14 wks Appointment Date:04/10/2023 10:00:00 AM Scheduled Provider:VIKTORIA MARINELLI Location:[facility] Appointment Type:[facility] OB Routine Follow Up Diagnostic Tests Pending * Urine Culture 03/12/23 Future Scheduled Tests Laboratory* Type and Screen (AO) 01/03/23 * Hepatitis B Surface Antigen 01/03/23 * Rapid Plasma Reagin Test 01/03/23 * Rubella Antibody 01/03/23 * Complete Blood Count 01/03/23 * Hepatitis C Antibody IgG 01/03/23 * Varicella Zoster Antibody 01/03/23 * Complete Metabolic Panel 01/03/23 * [facility] Send out (Blood Specimens) 01/31/23 * [facility] Send out (Blood Specimens) 01/31/23 Radiology* US OB > 14 weeks 04/09/23 * XR Finger Thumb 3 Views Left 08/24/22 * XR Finger Thumb 3 Views Right 08/24/22 [facility] Evaluation + Plan note Future Appointments Appointment Date:04/10/2023 10:15:00 AM Scheduled Provider:VIKTORIA MARINELLI Location:[facility] Appointment Type:[facility] OB Routine Follow Up Future Scheduled Tests Laboratory* Type and Screen (AO) 01/03/23 * Hepatitis B Surface Antigen 01/03/23 * Rapid Plasma Reagin Test 01/03/23 * Rubella Antibody 01/03/23 * Complete Blood Count 01/03/23 * Hepatitis C Antibody IgG 01/03/23 * Varicella Zoster Antibody 01/03/23 * Complete Metabolic Panel 01/03/23 * [facility] Send out (Blood Specimens) 01/31/23 * [facility] Send out (Blood Specimens) 01/31/23 Radiology* XR Finger Thumb 3 Views Left 08/24/22 * XR Finger Thumb 3 Views Right 08/24/22 [facility] Evaluation + Plan note Future Appointments Appointment Date:05/08/2023 10:15:00 AM Scheduled Provider:VIKTORIA MARINELLI Location:[facility] Appointment Type: OV OB Routine Follow Up Future Scheduled Tests Laboratory* Type and Screen (AO) 01/03/23 * Hepatitis B Surface Antigen 01/03/23 * Rapid Plasma Reagin Test 01/03/23 * Rubella Antibody 01/03/23 * Complete Blood Count 01/03/23 * Hepatitis C Antibody IgG 01/03/23 * Varicella Zoster Antibody 01/03/23 * Complete Metabolic Panel 01/03/23 Radiology* XR Finger Thumb 3 Views Left 08/24/22 * XR Finger Thumb 3 Views Right 08/24/22 [facility] Evaluation + Plan note Future Appointments Appointment Date:07/04/2023 10:00:00 AM Scheduled Provider:VIKTORIA MARINELLI Location:[facility] Appointment Type: OV OB Routine Follow Up Appointment Date:07/05/2023 11:30:00 AM Scheduled Provider: Location:[facility] Appointment Type:INF Injection - Rhogam Future Scheduled Tests Laboratory* ABO/Rh (Gel) 05/15/23 * Type and Screen (AO) 01/03/23 * Glucose 1 Hour Challenge 05/15/23 * Rapid Plasma Reagin Test 05/15/23 * Complete Blood Count 05/15/23 Radiology* XR Finger Thumb 3 Views Left 08/24/22 * XR Finger Thumb 3 Views Right 08/24/22 [facility] Evaluation + Plan note Future Appointments Appointment Date:07/18/2023 10:30:00 AM Scheduled Provider:VIKTORIA MARINELLI Location:[facility] Appointment Type:[facility] OB Routine Follow Up Diagnostic Tests Pending * Rapid Plasma Reagin Test 07/05/23 Future Scheduled Tests Laboratory* Type and Screen (AO) 01/03/23 * Type and Screen (AO) 07/05/23 Radiology* XR Finger Thumb 3 Views Left 08/24/22 * XR Finger Thumb 3 Views Right 08/24/22 [facility] Evaluation + Plan note Future Appointments Appointment Date:08/08/2023 02:30:00 PM Scheduled Provider:VIKTORIA MARINELLI Location:[facility] Appointment Type:[facility] OB Routine Follow Up Future Scheduled Tests Laboratory* Type and Screen (AO) 01/03/23 * Type and Screen (AO) 07/05/23 Radiology* XR Finger Thumb 3 Views Left 08/24/22 * XR Finger Thumb 3 Views Right 08/24/22 [facility] Evaluation + Plan note Future Appointments Appointment Date:08/23/2023 01:45:00 PM Scheduled Provider:EMA JEAN BAPTISTE Location:[facility] Appointment Type:[facility] OB Routine Follow Up Future Scheduled Tests Laboratory* Type and Screen (AO) 01/03/23 * Type and Screen (AO) 07/05/23 Radiology* XR Finger Thumb 3 Views Left 08/24/22 * XR Finger Thumb 3 Views Right 08/24/22 [facility] Evaluation + Plan note Future Appointments Appointment Date:02/28/2023 08:45:00 AM Scheduled Provider:VIKTORIA MARINELLI Location:[facility] Appointment Type:[facility] OB Routine Follow Up Diagnostic Tests Pending * Urine Culture 02/16/23 Future Scheduled Tests Laboratory* Von Willebrand Multimer 07/19/22 * Type and Screen (AO) 01/03/23 * Antinuclear Antibody Screen, Serum 08/24/22 * Hepatitis B Surface Antigen 01/03/23 * Rapid Plasma Reagin Test 01/03/23 * Rubella Antibody 01/03/23 * Uric Acid 08/24/22 * Rheumatoid Factor 08/24/22 * APTT Panel 07/19/22 * Complete Blood Count 01/03/23 * Factor VIII Assay 07/19/22 * Von Willebrand Related Antigen 07/19/22 * Hepatitis C Antibody IgG 01/03/23 * Prothrombin Time - Panel 07/19/22 * Ristocetin Cofactor 07/19/22 * Varicella Zoster Antibody 01/03/23 * Complete Metabolic Panel 01/03/23 * [facility] [place] out (Blood Specimens) 01/31/23 * [facility] Send out (Blood Specimens) 01/31/23 Radiology* XR Finger Thumb 3 Views Left 08/24/22 * XR Finger Thumb 3 Views Right 08/24/22 [facility] Evaluation note* Diagnosis Onset Date Resolution Status Admit Date Encounter for pre-employment health screening examination acute Oct 2:51pm [facility] Work Phone: Hospital Discharge instructions No data available for this section [facility] Progress note No data available for this section [facility] Reason for referral (narrative)[facility]: Summary Purpose Family History No Family History Records Found No data available for this section No data available for this section No data available for this section No data available for this section No data available for this section No data available for this section No data available for this section No data available for this section No data available for this section No data available for this section No data available for this section No data available for this section No data available for this section No data available for this section No Family History Records Found No data available for this section No data available for this section No Family History Records FoundNo Family History Records Found Advance Directives No Advanced Directives Records FoundNo Advanced Directives Records FoundNo Advanced Directives Records FoundNo Advanced Directives Records Found Chief Complaint and Reason for Visit Chief Complaint Admit Date PE/NON DOT DRUG & BAT/PATTI BRUSH Octu 2024 2:51pm Reason for Visit Admit Date Encounter for pre-employment health scre ening examination October 10, 2024 2:51pm Additional Source Comments INFORMATION SOURCE (unrecogn ized section and content) DATE CREATED AUTHOR 07/02/2019 [facility] DATE CREATED AUTHOR AUTHOR'S ORGANIZ ATION 10/26/2023 [facility] ([place] DATE CREATED AUTHOR AUTHOR'S ORGANIZ ATION 10/17/2024 [facility] DATE CREATED AUTHOR AUTHOR'S ORGANIZ ATION 11/18/2024 [facility] Care Team (unrecognized sect ion and content) Care Team Personnel Name: VIKTORIA CHRISTIANSON Position: P4 Advanced Practice Nurse Med Service: Employed Provider Member Role: Primary Care Physician Address: Address: [address] [place] [address]- Care Team Related Persons Name: MPARNOLD Bernal Address: Home [address], [place] [id number] Address: Temporary [address] [place], [place] [id number] Name: ARNOLD BOSTON Address: Home [address], [place] [id number] Address: [address]porary [address] [place], [place] [id number] Name: BERNARD HOFF Address: Home [address] [place], [place] [id number] [place] Care Team Personnel Name: VIKTORIA CHRISTIANSON [employer] WORK[employer] Position: P4 Advanced Practice Nurse Med Service: Employed Provider Member Role: Primary Care Physician Address: Address: [address] [place] [address]- Care Team Related Persons Name: MPARNOLD Bernal Address: Home [address], [place] [id number] Address: Temporary [address] [place], [place] [id number] Name: MPARNOLD Bernal Gisell Address: Home [address], [place] [id number] Address: Temporary [address], [place] [id number] Name: BERNARD HOFF Address: Home [address] [place], [place] [id number] [place] Care Team Personnel Name: VIKTORIA CHRISTIANSON [employer] WORK[employer] Position: P4 Advanced Practice Nurse Member Role: Primary Care Physician Address: Address: [address] [place] [address]- Care Team Related Persons Name: MPARNOLD Bernal Gisell Address: Home [address], [place] [id number] Address: Temporary [address], [place] [id number] Name: ARNOLD BOSTON Address: Home [address], [place] [id number] Address: Temporary [address], [place] [id number] Name: BERNARD HOFF Address: Home [address] [place], [place] [id number] [place] Care Team Personnel Name: VIKTORIA CHRISTIANSON [employer] WORK[employer] Position: P4 Advanced Practice Nurse Member Role: Primary Care Physician Address: Address: [address], [place] [address] Care Team Related Persons Name: ARNOLD BOSTON Address: Home [address] [facility], [place] [id number] Address: Temporary [address], [place] [id number] Name: ARNOLD BOSTON Address: Home [address], [place] [id number] Address: Temporary [address], [place] [id number] Name: BERNARD HOFF Address: Home [address] [place], [place] [id number] Patient Care team informatio n (unrecognized section and content) Team Status: Active Member Role/Relationship Status Dates KENNETH Gonzalez Attending Provider Active Sta rt: October 10, 2024 Team Status: Inactive Member Role/Relationship Status Dates KENNETH Gonzalez Attending Provider Active Sta rt: October 10, 2024 End: October 10, 2024 Goals (unrecognized section and content) Goals may be documented in a n alternate section FOR RECORDS PERTAINING TO PATIENTS WHO ARE OR HAVE BEEN ENROLLED IN A CHEMICAL DEPENDENCY/SUBSTANCEABUSE PROGRAM, SOME INFORMATION MAY BE OMITTED. This clinical summary was aggregated from multiple sources. Caution should be exercised in using it in the provision of clinical care. This summary normalizes information from multiple sources, and as a consequence, information in this document may materially change the coding, format and clinical context of patient data. In addition, data may be omitted in some cases. CLINICAL DECISIONS SHOULD BE BASED ON THE PRIMARY CLINICAL RECORDS. [employer] provides no warranty or guarantee of the accuracy or completeness of information in this document.
[2024-11-27 22:40] VITALS: BP 101/69; PULSE 68; RESP 18; O2SAT 100
[2024-11-27 23:07] VITALS: BP 96/57; PULSE 68; RESP 18; TEMP 36.3; O2SAT 100
--- NOTE | 2024-11-28 00:43 | ED.VIS.GI ---
HPI HPI - GI History of Present Illness Chief Complaint: Abd Pain Narrative Narrative: Patient is a 18-year-old female presenting to the emergency department for lower abdominal discomfort and nausea for the past few days. She denies fever, chills, vomiting, dysuria or hematuria. Reports last menstrual period at the beginning of November. Denies any abnormal vaginal bleeding, discharge, pain. Denies any concern for any STDs. States that the pain is more of a discomfort all along her lower abdomen. She reports being constipated for the past few days as well. Reports she did have a bowel movement today. PFSH PFS Medical History Asthma Home Medications ?Medication ?Instructions ?Recorded ?Last Taken ?Type nitrofurantoin 100 mg PO Q12H 5 days #10 caps 11/27/24 Unknown Rx monohydrate/macrocrystals 100 mg capsule (Macrobid) Allergy/AdvReac Type Severity Reaction Status Date / Time No Known Allergies Allergy Verified 11/27/24 20:41 Family History no significant family his Surgical History no surgical history Social History Smoking Status: Never smoker ROS ROS ED ROS Narrative See HPI EXAM Physical Exam Narrative Exam Narrative: Vital signs: Reviewed General: Alert and orientedx3. No acute distress HEENT: Head is normocephalic and atraumatic, sinuses nontender, pupils equal round and reactive. Nares are patent. Oropharynx and throat exams normal. Neck: Supple without lymphadenopathy nontender Cardiovascular: Regular rate and rhythm, no murmurs. No rubs or gallops. Normal S1 and S2 Respiratory: Clear to auscultation bilaterally. No wheezes, rales, rhonchi Abdominal: Soft. No tenderness to palpation. Normal bowel sounds. No guarding or rebound. Nonsurgical abdomen Extremities: No tenderness. No bruising. Normal range of motion. Normal sensation. Skin: No rash or redness. The rest of the physical exam is unremarkable Const Vital Signs: 11/27/24 20:42 11/27/24 22:40 11/27/24 23:07 Temperature 97.4 F L 97.4 F L Temperature Source Temporal Pulse Rate 77 68 68 Respiratory Rate 18 18 18 Blood Pressure 109/68 101/69 96/57 L Blood Pressure Mean 81 79 70 Pulse Ox 98 100 100 Oxygen Delivery Method Room Air Room Air MDM MDM MDM Narrative Medical decision making narrative: Patient is a 18-year-old female presenting to the emergency department for lower abdominal discomfort and nausea. Patient was seen and examined. Vitals are stable. Patient resting bed comfortably no acute distress. Abdomen is completely nontender to palpation. There is no guarding or rebound tenderness. Given the patient's stable vital signs, clinical presentation and physical exam I do not think it is necessary to obtain CT imaging of the abdomen at this time. Labs and urinalysis were ordered. CBC with no leukocytosis and anemia of 11.3. CMP with mild elevation in creatinine at 1.26 however no other significant abnormalities. Lipase within normal limits. Urinalysis with bacteria and nitrites. With the patient's lower abdominal discomfort consistent with UTI, given first dose of Macrobid here. Urine negative. Patient updated on the lab findings. She was discharged home on Macrobid. Instructed to follow-up with her PCP as soon as possible. Instructed her that I will send a urine culture that her primary care doctor can follow-up on these results. Patient discharged from the Emergency Department. I do not feel that the patient's evaluation reveals any acute reason for admission at this time. I instructed them to either follow-up with their primary care physician or promptly return to the Emergency Department for reevaluation should symptoms worsen or new symptoms develop. I explained what symptoms would indicate the need to return to the emergency department. Shared decision making was used. The patient voiced understanding of the treatment plan and is agreeable with it. Clinical impression UTI History & Record Review Discussion w/independent historian: Patient Lab Data Attestation: I reviewed the patient's lab results. Labs: Laboratory Results - last 24 hr 11/27/24 11/27/24 21:02 21:10 WBC 8.9 RBC 4.06 L Hgb 11.3 L Hct 35.2 L MCV 86.7 MCH 27.8 MCHC 32.1 RDW Std Deviation 45.1 H RDW Coeff of Erendira 14.1 Plt Count 230 MPV 10.0 Immature Gran % (Auto) 0.200 Neut % (Auto) 57.6 Lymph % (Auto) 32.0 [place] % (Auto) 8.9 Eos % (Auto) 0.7 Baso % (Auto) 0.6 Absolute Neuts (auto) 5.1 Absolute Lymphs (auto) 2.85 Nucleated RBC % 0 Sodium 140 Potassium 3.5 Chloride 103 Carbon Dioxide 23.9 Anion Gap 13 BUN 16 Creatinine 1.26 H Estim Creat Clear Calc 54.19 Est GFR (MDRD) Non-Af 63 BUN/Creatinine Ratio 12.8 Glucose 110 H Calcium 9.4 Total Bilirubin 0.78 AST 19 ALT 12 Alkaline Phosphatase 60 Total Protein 6.8 Albumin 4.7 Globulin 2.2 Albumin/Globulin Ratio 2.2 Lipase 49 Serum , Qual NEGATIVE Urine Color Yellow Urine Clarity Clear Urine pH 7.0 Ur Specific [place] 1.015 Urine Protein 30 H Urine Glucose (UA) Normal Urine Ketones Negative Urine Occult Blood Negative Urine Nitrite Positive H Urine Bilirubin Negative Urine Urobilinogen Normal Ur Leukocyte Esterase Negative Urine RBC 0-5 SEEN Urine WBC 0-5 SEEN Ur Squamous Epith Cells 5-10 SEEN Urine Bacteria 3+ Urine Mucus 0 SEEN Discharge Plan Triage Chief Complaint: Abd Pain ED Provider: Susannah Holland Dx/Rx/DC Orders Clinical Impression: UTI (urinary tract infection) Instructions: ED Cystitis Female Adult Prescriptions: New nitrofurantoin monohyd/m-cryst [Macrobid] 100 mg capsule 100 mg PO Q12H 5 Days Qty: 10 0RF Rx Instructions: must administer with a meal/food Stand Alone Forms: ED Work / School Excuse Primary Care Provider: Vianney Adams NP Referrals: Vianney Adams NP, [employer] [Primary Care Provider, Family Practice] - 2 Days Activity Restrictions/Additional Instructions: Take antibiotic as prescribed. Your evaluation in the Emergency Department did not reveal any acute reason for admission. However, I want to emphasize that you may be early in the course of a disease process or illness even if it is not present. For this reason you should follow-up within 24 hours for reevaluation with either your primary care physician or if necessary back here in the Emergency Department. You should return to the Emergency Department immediately if your symptoms worsen or new symptoms develop. Print Language: Peruvian Disposition Disposition: Home, Self Care Discharge Date/Time: 11/27/24 23:30
== END 2024-11-27 23:30 | disposition home or self-care (01) ==
PROVIDERS: Emergency Provider Student in an Organized Health Care Education/Training Program; PCP Nurse Practitioner Primary Care; Visit Provider Student in an Organized Health Care Education/Training Program
DX: N39.0 Urinary tract infection, site not specified (principal)
CPT/HCPCS: 80053; 81001; 83690; 84703; 85025; 87077; 87086; 87088; 87186; 99282